=== PATIENT | female | born 1950 | race Caucasian/White ===

== ENCOUNTER 2017-07-20 19:43 | Inpatient (IN) | payer OTHER ==
[~2017-07-20] VITALS: Ht 157.5 cm; Wt 70.0 kg
[~2017-07-20 19:43] MED LIST: ACET-1138 PO; AMIT10TA6 PO; ASPI81CH2 PO; CEPH500C2 PO; CLB200 PO; CLC100 PO; DIAZ5TAB3 PO; FLUO10CA48 PO; LOSA100T2 PO; METO-478 PO; MULT-506 PO; NXM/40 PO; OXYC-738 PO; RXC5 PO; SENN-65 PO; SIMV10TA2 PO; SUMA50TA15 PO; TIZA1CAP PO
[2017-07-20] MEDS ORDERED: DiphenhydrAMINE HCL 50 MG/ML VIAL IV STA (20:18)
[2017-07-20] MEDS ORDERED: SODIUM CHLORIDE 0.9% 1000ML 2,000 ML IV STA (20:18)
[2017-07-20] MEDS ORDERED: METOCLOPRAMIDE HCL INJ 5 MG/ML 2 ML VIAL IV STA (20:18)
[2017-07-20] MEDS ORDERED: OPTIRAY 320 IV PRN (20:30)
--- NOTE | 2017-07-20 20:52 | EMERGENCY ROOM VISIT NOTE ---
History Report prepared by Arnaldo: Juan Miller Under the Supervision of: Dr. Madhav Castro M.D. First contact with patient: 19:53 Chief Complaint: SYNCOPE Stated Complaint: FAINTED AND LOST SPEECH, DOMINIQUE, VISION PROBLEMS History of Present Illness The patient is a 67 year old female who presents to the Emergency Room with complaints of an episode of syncope that occurred this morning 13 hours ago. At that time, she was getting dressed when everything suddenly went "black and float-y" and she collapsed straight down "like an accordion." She woke up as her arrived next to her. Per the patient's , he came into the bedroom when he heard her collapse and said she had jumbled speech. She was trying to say "I think I'm having a stroke." Afterward when her speech improved , she immediately got a migraine that felt like her typical migraines with aura. She took an Imitrex which usually helps, but notes that it did not help. Several hours later, she took another Imitrex and also took a Diazepam. She took a nap and when she woke up her migraine was gone but she still had superior head pain with her vision aura. Usually her aura goes away when she takes Imitrex, but it did not. Her head pain worsens with coughing and notes that she is getting over bronchitis. She is currently nauseated but denies any chest pain, shortness of breath, vomiting, or any other abnormal symptoms. Source of History: patient Onset: 13 hours ago Position: other (Global) Symptom Intensity: 1 episode Quality: other (Syncope) Timing: resolved Associated Symptoms: + headache, No chest pain, No SOB, No vomiting Note: She is having a migraine vision aura. Review of Systems See HPI for pertinent positives and negatives. A total of ten systems were reviewed and were otherwise negative. Past Medical & Surgical Medical Problems: (1) Dyslipidemia (2) Empyema of lung (3) Gastrointestinal hemorrhage (4) GERD (gastroesophageal reflux disease) (5) Hemarthrosis, unspecified knee (6) History of basal cell carcinoma (7) History of squamous cell carcinoma of skin (8) Hypertension (9) Intractable neuropathic pain of knee (10) Knee pain, bilateral (11) Migraine (12) Pulmonary embolism (13) Syncope (14) Thyroid nodule Surgical Problems: (1) Status post SAMREEN-BSO (2) Total knee replacement status Family History Omitted secondary to the patient's age. Social History Smoking Status: Never Smoker Marital Status: Housing Status: lives with family Occupation Status: unemployed Current/Historical Medications Scheduled Amitriptyline Hcl (Elavil), 10 MG PO HS Carbidopa/Levodopa (Sinemet 25MG/100MG), 0.5 TAB PO QPM Dexlansoprazole (Dexilant), 60 MG PO DAILY Diazepam (Valium), 10 MG PO QPM Fluoxetine (Prozac), 10 MG PO QAM Hydrochlorothiazide (Hydrochlorothiazide), 12.5 MG PO 3XWK Losartan Potassium (Cozaar), 100 MG PO DAILY Metoprolol Succinate (Toprol Xl), 25 MG PO QPM Ranitidine HCl (Ranitidine 75), 75 MG PO HS Simvastatin (Zocor), 10 MG PO QPM Tizanidine Hcl (Tizanidine Hcl), 2 MG PO HS Scheduled PRN Acetaminophen (Tylenol), 1,000 MG PO Q8H PRN for Pain Diazepam (Valium), 5 MG PO Q6 PRN for Headache Hydrocodone/Acetaminophen 5MG/325MG ([place] 5MG/325MG), 1 TABLET PO TID PRN for Pain Sumatriptan Succinate (Imitrex), 50 MG PO UD PRN for Headache Zolmitriptan (Zomig), 2.5 MG INH UD PRN for Migraine Allergies Coded Allergies: Adhesives (Verified Allergy, Unknown, REDNESS [id number] TAPE OK, ) Valproic Acid (Verified Adverse Reaction, Intermediate, feels "out of it" , 07/20/17) Physical Exam Vital Signs Date Time Temp Pulse Resp B/P (MAP) Pulse Ox O2 Delivery O2 Flow Rate FiO2 07/21/17 01:03 74 20 140/82 98 Room Air 07/21/17 00:22 74 20 154/80 99 Room Air 07/20/17 23:33 Room Air 07/20/17 22:49 63 18 125/61 97 Room Air 07/20/17 21:58 98 Room Air 07/20/17 21:58 65 18 182/77 98 Room Air 07/20/17 21:23 66 07/20/17 19:49 36.7 71 18 136/87 99 Room Air Physical Exam GENERAL: Awake, alert, anxious-appearing, in no distress HENT: Normocephalic, atraumatic. Oropharynx reveals dry mucous membranes. EYES: Normal conjunctiva. Sclera non-icteric. NECK: Supple. No nuchal rigidity. FROM. No JVD. RESPIRATORY: Clear to auscultation. CARDIAC: Regular rate, normal rhythm. Extremities warm and well perfused. Pulses equal. ABDOMEN: Soft, non-distended. No tenderness to palpation. No rebound or guarding. No masses. RECTAL: Deferred. MUSCULOSKELETAL: Chest examination reveals no tenderness. The back is symmetrical on inspection without obvious abnormality. There is no CVA tenderness to palpation. No joint edema. LOWER EXTREMITIES: Calves are equal size bilaterally and non-tender. No edema. No discoloration. NEURO: Normal sensorium. No sensory or motor deficits noted. SKIN: No rash or jaundice noted. Medical Decision & Procedures ER Provider Diagnostic Interpretation: Radiology results as stated below per my review and radiologist interpretation: ANGIOGRAPHY HEAD COMBO, NECK ANGIO WITH CONTRAST CLINICAL HISTORY: 67 years-old Female presenting with headache, aphasia, now resolved. TECHNIQUE: Multidetector CT angiography of the head was performed before and after the administration of intravenous contrast. Additionally, multidetector CT angiography of the neck was performed after the administration of intravenous contrast. 3-D volumetric and/or maximum intensity projection (MIP) images were subsequently reconstructed for review. IV contrast: 114 mL of Optiray 320. A dose lowering technique was used consistent with the principles of ALARA (as low as reasonably achievable). Stenosis measurements were based on NASCET-like criteria. COMPARISON: CT head from 07/22/2014. CT DOSE (mGy.cm): The estimated cumulative dose is 929.87 mGy.cm. FINDINGS: [employer] topogram: Unremarkable. NONCONTRAST CT HEAD: Ventricles and sulci normal in size. Brain parenchyma normal in appearance with preserved taylor-white differentiation. No mass effect or midline shift. Scans hyperdensity laterally in the right posterior fossa. No acute territorial infarct. No extra-axial fluid collection. Paranasal sinuses and mastoid air cells clear. Calvarium intact. CTA HEAD: Intracranial portions of the internal carotid arteries, anterior and middle cerebral arteries, and anterior commuting artery patent. Codominant vertebral arteries and basilar artery patent. Posterior inferior cerebellar, superior cerebellar, and posterior cerebral arteries patent. Anterior inferior cerebellar arteries poorly visualized. Bilateral posterior communicating arteries patent. The T1 segment of the left posterior cerebral artery is hypoplastic. No evidence of aneurysm, focal vessel occlusion, or significant stenosis. CTA NECK: The aortic arch is incompletely visualized. Bilateral common carotid arteries patent. Atherosclerotic plaque at the right carotid bulb results in narrowing of the origin of the right internal carotid artery with a minimum diameter of 2.8 mm in comparison to normal distal diameter of 5.5 mm (approximately 50% stenosis). The remainder of the right internal carotid artery is widely patent. Left internal carotid artery also patent despite the presence of mild atherosclerotic plaque at the left carotid bulb. Codominant vertebral arteries with patent origins and courses. No evidence of dissection or focal vessel occlusion. Few subcentimeter hypodensities in the thyroid gland. Lung apices clear. Mild degenerative changes of the cervical spine. IMPRESSION: 1. No acute intracranial abnormality. Hyperdensity in the right posterior fossa is felt to be artifactual related to volume averaging with the skull base, the transiting dural venous sinus, and/or adjacent calcified choroid or vessels. This is not convincing for hemorrhage. If there is clinical concern noncontrast MR brain could be obtained. 2. No evidence of aneurysm, focal vessel occlusion, or significant stenosis. 3. 50% stenosis of the origin of the right internal carotid artery. No evidence of dissection or focal vessel occlusion. Electronically signed by: Aryan Melara M.D. 07/20/2017 10:04 PM Dictated Date/Time: 07/20/2017 9:53 PM CHEST ONE VIEW PORTABLE CLINICAL HISTORY: 67 years-old Female presenting with CHEST PAIN. TECHNIQUE: Portable upright AP view of the chest was obtained. COMPARISON: 07/20/2017. FINDINGS: Cardiomediastinal silhouette normal. Lungs and pleural spaces clear. Degenerative changes of the thoracic spine. Upper abdomen normal. IMPRESSION: 1. No acute cardiopulmonary disease. Electronically signed by: Aryan Melara M.D. 07/20/2017 9:08 PM Dictated Date/Time: 07/20/2017 9:07 PM ANGIOGRAPHY HEAD COMBO, NECK ANGIO WITH CONTRAST CLINICAL HISTORY: 67 years-old Female presenting with headache, aphasia, now resolved. TECHNIQUE: Multidetector CT angiography of the head was performed before and after the administration of intravenous contrast. Additionally, multidetector CT angiography of the neck was performed after the administration of intravenous contrast. 3-D volumetric and/or maximum intensity projection (MIP) images were subsequently reconstructed for review. IV contrast: 114 mL of Optiray 320. A dose lowering technique was used consistent with the principles of ALARA (as low as reasonably achievable). Stenosis measurements were based on NASCET-like criteria. COMPARISON: CT head from 07/22/2014. CT DOSE (mGy.cm): The estimated cumulative dose is 929.87 mGy.cm. FINDINGS: [employer] topogram: Unremarkable. NONCONTRAST CT HEAD: Ventricles and sulci normal in size. Brain parenchyma normal in appearance with preserved taylor-white differentiation. No mass effect or midline shift. Scans hyperdensity laterally in the right posterior fossa. No acute territorial infarct. No extra-axial fluid collection. Paranasal sinuses and mastoid air cells clear. Calvarium intact. CTA HEAD: Intracranial portions of the internal carotid arteries, anterior and middle cerebral arteries, and anterior commuting artery patent. Codominant vertebral arteries and basilar artery patent. Posterior inferior cerebellar, superior cerebellar, and posterior cerebral arteries patent. Anterior inferior cerebellar arteries poorly visualized. Bilateral posterior communicating arteries patent. The T1 segment of the left posterior cerebral artery is hypoplastic. No evidence of aneurysm, focal vessel occlusion, or significant stenosis. CTA NECK: The aortic arch is incompletely visualized. Bilateral common carotid arteries patent. Atherosclerotic plaque at the right carotid bulb results in narrowing of the origin of the right internal carotid artery with a minimum diameter of 2.8 mm in comparison to normal distal diameter of 5.5 mm (approximately 50% stenosis). The remainder of the right internal carotid artery is widely patent. Left internal carotid artery also patent despite the presence of mild atherosclerotic plaque at the left carotid bulb. Codominant vertebral arteries with patent origins and courses. No evidence of dissection or focal vessel occlusion. Few subcentimeter hypodensities in the thyroid gland. Lung apices clear. Mild degenerative changes of the cervical spine. IMPRESSION: 1. No acute intracranial abnormality. Hyperdensity in the right posterior fossa is felt to be artifactual related to volume averaging with the skull base, the transiting dural venous sinus, and/or adjacent calcified choroid or vessels. This is not convincing for hemorrhage. If there is clinical concern noncontrast MR brain could be obtained. 2. No evidence of aneurysm, focal vessel occlusion, or significant stenosis. 3. 50% stenosis of the origin of the right internal carotid artery. No evidence of dissection or focal vessel occlusion. Electronically signed by: Aryan Melara M.D. 07/20/2017 10:04 PM Dictated Date/Time: 07/20/2017 9:53 PM Laboratory Results 07/20/17 20:53 Red Blood Count 4.55, Mean Corpuscular Volume 87.3, Mean Corpuscular Hemoglobin 29.2, Mean Corpuscular Hemoglobin Concent 33.5, Mean Platelet Volume 10.7, Neutrophils (%) (Auto) 50.5, Lymphocytes (%) (Auto) 36.9, Monocytes (%) (Auto) 9.8, Eosinophils (%) (Auto) 2.0, Basophils (%) (Auto) 0.6, Neutrophils # (Auto) 2.57, Lymphocytes # (Auto) 1.88, Monocytes # (Auto) 0.50, Eosinophils # (Auto) 0.10, Basophils # (Auto) 0.03 07/20/17 20:53 Test 07/20/17 20:53 07/20/17 21:51 07/21/17 01:07 White Blood Count 5.09 K/uL (4.8-10.8) Red Blood Count 4.55 M/uL (4.2-5.4) Hemoglobin 13.3 g/dL (12.0-16.0) Hematocrit 39.7 % (37-47) Mean Corpuscular Volume 87.3 fL (80-100) Mean Corpuscular Hemoglobin 29.2 pg (25-34) Mean Corpuscular Hemoglobin Concent 33.5 g/dl (32-36) Platelet Count 206 K/uL (130-400) Mean Platelet Volume 10.7 fL (7.4-10.4) Neutrophils (%) (Auto) 50.5 % Lymphocytes (%) (Auto) 36.9 % Monocytes (%) (Auto) 9.8 % Eosinophils (%) (Auto) 2.0 % Basophils (%) (Auto) 0.6 % Neutrophils # (Auto) 2.57 K/uL (1.4-6.5) Lymphocytes # (Auto) 1.88 K/uL (1.2-3.4) Monocytes # (Auto) 0.50 K/uL (0.11-0.59) Eosinophils # (Auto) 0.10 K/uL (0-0.5) Basophils # (Auto) 0.03 K/uL (0-0.2) RDW Standard Deviation 44.6 fL (36.4-46.3) RDW Coefficient of Variation 14.1 % (11.5-14.5) Immature Granulocyte % (Auto) 0.2 % Immature Granulocyte # (Auto) 0.01 K/uL (0.00-0.02) Anion Gap 5.0 mmol/L (3-11) Est Creatinine Clear Calc Drug Dose 55.7 ml/min Estimated GFR () 77.7 Estimated GFR (Non- 67.0 BUN/Creatinine Ratio 18.1 (10-20) Calcium Level 9.4 mg/dl (8.5-10.1) Total Bilirubin 0.3 mg/dl (0.2-1) Direct Bilirubin < 0.1 mg/dl (0-0.2) Aspartate Amino Transf (AST/SGOT) 16 U/L (15-37) Alanine Aminotransferase (ALT/SGPT) 21 U/L (12-78) Alkaline Phosphatase 82 U/L (45-117) Troponin I < 0.015 ng/ml (0-0.045) Total Protein 7.3 gm/dl (6.4-8.2) Albumin 3.9 gm/dl (3.4-5.0) Lipase 185 U/L (73-393) Urine Color YELLOW Urine Appearance CLEAR (CLEAR) Urine pH 7.5 (4.5-7.5) Urine Specific [place] 1.024 (1.000-1.030) Urine Protein NEG (NEG) Urine Glucose (UA) NEG (NEG) Urine Ketones NEG (NEG) Urine Occult Blood NEG (NEG) Urine Nitrite NEG (NEG) Urine Bilirubin NEG (NEG) Urine Urobilinogen NEG (NEG) Urine Leukocyte Esterase SMALL (NEG) Urine WBC (Auto) 1-5 /hpf (0-5) Urine RBC (Auto) 0-4 /hpf (0-4) Urine Hyaline Casts (Auto) 0 /lpf (0-5) Urine Epithelial Cells (Auto) 20-30 /lpf (0-5) Urine Bacteria (Auto) NEG (NEG) Bedside Glucose 123 mg/dl (70-90) Laboratory results reviewed by me Medications Administered Medications (Trade) Dose Ordered Sig/Jimmy Route Start Time Stop Time Status Last Admin Dose Admin Sodium Chloride 2,000 ml @ 999 mls/hr Q2H1M STAT IV 07/20/17 20:18 07/20/17 22:18 DC 07/20/17 21:01 999 MLS/HR Metoclopramide HCl (Reglan Inj) 10 mg NOW STAT IV 07/20/17 20:18 07/20/17 20:23 DC 07/20/17 21:01 10 MG Diphenhydramine HCl (Benadryl Inj) 25 mg NOW STAT IV 07/20/17 20:18 12 20:23 DC 07/20/17 21:01 25 MG Dexamethasone Sodium Phosphate (Dexamethasone Inj Pf) 10 mg NOW ONCE IV 07/20/17 22:45 07/20/17 22:46 DC 07/20/17 22:42 10 MG Dextrose (Dextrose 50% 50ML Syringe) 50 ml NOW STAT IV 07/20/17 22:37 07/20/17 22:39 DC 07/20/17 22:42 50 ML ECG Indication: syncope Rate (beats per minute): 66 Rhythm: normal sinus Findings: no acute ischemic change, other (normal axis) ED Course 1952: The patient was evaluated in room C1. A complete history and physical exam was performed. 2236: She feels as if her sugars are low. Her BSG per nursing staff was 63. She will be given something to increase her sugars. 0: Upon reexamination, the patient was resting. I discussed the test results and treatment plan with her. I spoke with Dr. Noguera of the [facility] Hospitalist service. The patient will be evaluated for further management. Medical Decision I reviewed the patient's past medical history, medications, and the nursing notes as described above. Differential diagnosis includes but is not limited to: Migraine/Complex migraine , CVA/TIA, ICH, dehydration, electrolyte abnormalities, pna, uti. The patient is a 67-year-old woman with a past medical history of migraine headaches who presents to emergency department after having a migraine headache earlier today that was also associated with syncopal episode where she feels like she blacked out and subsequently reports that she was unable to speak for several minutes per hpi. Arrival the patient is anxious appearing but in no acute distress, afebrile, hypertensive but with stable vital signs. She is neurologically intact including normal cerebellar function with [id number], alternating palms. CTA of the head and neck was done and was negative for any severe large vessel occlusion or infarct. Patient feeling improved after migraine cocktail although still with some residual headache but resolution of her visual symptoms. The patient's prolonged episode of aphasia earlier today it is reasonable to the patient for a full stroke rule out. MRI has been ordered. Case d/w Dr. Noguera, [facility] hospitalist, who will admit the patient for further management. Medication Reconcilliation Current Medication List: was personally reviewed by me Blood Pressure Screening Patient's blood pressure: Elevated blood pressure Referred to the hospitalist. Consults Time Called: [phone] Consulting Physician: Dr. Noguera - [facility] Hospitalist Returned Call: [phone] I discussed the patient with him - he will evaluate the patient for further treatment. Impression Primary Impression: Aphasia Additional Impression: Migraine headache Scribe Attestation The scribe's documentation has been prepared under my direction and personally reviewed by me in its entirety. I confirm that the note above accurately reflects all work, treatment, procedures, and medical decision making performed by me. Departure Information Dispostion Being Evaluated By Hospitalist Referrals Beth Wang M.D. (PCP) Patient Instructions My [facility] Problem Qualifiers
--- NOTE | 2017-07-20 21:09 | DIAGNOSTIC IMAGING REPORT ---
CHEST ONE VIEW PORTABLE CLINICAL HISTORY: 67 years-old Female presenting with CHEST PAIN. TECHNIQUE: Portable upright AP view of the chest was obtained. COMPARISON: 07/20/2017. FINDINGS: Cardiomediastinal silhouette normal. Lungs and pleural spaces clear. Degenerative changes of the thoracic spine. Upper abdomen normal. IMPRESSION: 1. No acute cardiopulmonary disease. Electronically signed by: Aryan Melara M.D. 07/20/2017 9:08 PM Dictated Date/Time: 07/20/2017 9:07 PM
[2017-07-20 21:11] LABS: BASO % 0.6 %; BASO ABS # 0.03 K/uL (0-0.2); HEMATOCRIT 39.7 % (37-47); HEMOGLOBIN 13.3 g/dL (12.0-16.0); IG# 0.01 K/uL (0.00-0.02); LYMPH % 36.9 %; LYMPH ABS # 1.88 K/uL (1.2-3.4); MEAN CELL VOLUME 87.3 fL (80-100); MEAN CORPUSCULAR HEMOGLOBIN 29.2 pg (25-34); MEAN CORPUSCULAR HGB CONC 33.5 g/dl (32-36); MEAN PLATELET VOLUME 10.7 fL (7.4-10.4); MONO % 9.8 %; NEUT % 50.5 %; NEUT ABS # 2.57 K/uL (1.4-6.5); PLATELET COUNT 206 K/uL (130-400); RED CELL DISTRIBUTION WIDTH CV 14.1 % (11.5-14.5); RED CELL DISTRIBUTION WIDTH SD 44.6 fL (36.4-46.3); WHITE BLOOD COUNT 5.09 K/uL (4.8-10.8)
[2017-07-20 21:28] LABS: ALBUMIN 3.9 gm/dl (3.4-5.0); ALT/SGPT 21 U/L (12-78); BLOOD UREA NITROGEN 16 mg/dl (7-18); CALCIUM 9.4 mg/dl (8.5-10.1); CARBON DIOXIDE 30 mmol/L (21-32); CREATININE 0.88 mg/dl (0.60-1.20); GLUCOSE 123 mg/dl (70-99); LIPASE 185 U/L (73-393); POTASSIUM 3.7 mmol/L (3.5-5.1); SODIUM 138 mmol/L (136-145)
[2017-07-20 21:33] LABS: ALKALINE PHOSPHATASE 82 U/L (45-117); AST/SGOT 16 U/L (15-37); TOTAL PROTEIN 7.3 gm/dl (6.4-8.2)
--- NOTE | 2017-07-20 22:06 | DIAGNOSTIC IMAGING REPORT ---
ANGIOGRAPHY HEAD COMBO, NECK ANGIO WITH CONTRAST CLINICAL HISTORY: 67 years-old Female presenting with headache, aphasia, now resolved. TECHNIQUE: Multidetector CT angiography of the head was performed before and after the administration of intravenous contrast. Additionally, multidetector CT angiography of the neck was performed after the administration of intravenous contrast. 3-D volumetric and/or maximum intensity projection (MIP) images were subsequently reconstructed for review. IV contrast: 114 mL of Optiray 320. A dose lowering technique was used consistent with the principles of ALARA (as low as reasonably achievable). Stenosis measurements were based on NASCET-like criteria. COMPARISON: CT head from 07/22/2014. CT DOSE (mGy.cm): The estimated cumulative dose is 929.87 mGy.cm. FINDINGS: [employer] topogram: Unremarkable. NONCONTRAST CT HEAD: Ventricles and sulci normal in size. Brain parenchyma normal in appearance with preserved taylor-white differentiation. No mass effect or midline shift. Scans hyperdensity laterally in the right posterior fossa. No acute territorial infarct. No extra-axial fluid collection. Paranasal sinuses and mastoid air cells clear. Calvarium intact. CTA HEAD: Intracranial portions of the internal carotid arteries, anterior and middle cerebral arteries, and anterior commuting artery patent. Codominant vertebral arteries and basilar artery patent. Posterior inferior cerebellar, superior cerebellar, and posterior cerebral arteries patent. Anterior inferior cerebellar arteries poorly visualized. Bilateral posterior communicating arteries patent. The T1 segment of the left posterior cerebral artery is hypoplastic. No evidence of aneurysm, focal vessel occlusion, or significant stenosis. CTA NECK: The aortic arch is incompletely visualized. Bilateral common carotid arteries patent. Atherosclerotic plaque at the right carotid bulb results in narrowing of the origin of the right internal carotid artery with a minimum diameter of 2.8 mm in comparison to normal distal diameter of 5.5 mm (approximately 50% stenosis). The remainder of the right internal carotid artery is widely patent. Left internal carotid artery also patent despite the presence of mild atherosclerotic plaque at the left carotid bulb. Codominant vertebral arteries with patent origins and courses. No evidence of dissection or focal vessel occlusion. Few subcentimeter hypodensities in the thyroid gland. Lung apices clear. Mild degenerative changes of the cervical spine. IMPRESSION: 1. No acute intracranial abnormality. Hyperdensity in the right posterior fossa is felt to be artifactual related to volume averaging with the skull base, the transiting dural venous sinus, and/or adjacent calcified choroid or vessels. This is not convincing for hemorrhage. If there is clinical concern noncontrast MR brain could be obtained. 2. No evidence of aneurysm, focal vessel occlusion, or significant stenosis. 3. 50% stenosis of the origin of the right internal carotid artery. No evidence of dissection or focal vessel occlusion. Electronically signed by: Aryan Melara M.D. 07/20/2017 10:04 PM Dictated Date/Time: 07/20/2017 9:53 PM
[2017-07-20] MEDS ORDERED: DEXTROSE 50% 50 ML SYR IV STA (22:37)
[2017-07-20] MEDS ORDERED: CHOL1TAB18 PO (22:39)
[2017-07-20] MEDS ORDERED: CARB25TA12 PO (22:41)
[2017-07-20] MEDS ORDERED: HYDR12.55 PO (22:44)
[2017-07-20] MEDS ORDERED: DEXAMETHASONE **PF** INJ 10 MG/ML VIAL IV ONE (22:45)
[2017-07-20] MEDS ORDERED: LOSA1TAB38 PO (22:48)
[2017-07-20] MEDS ORDERED: DIAZ10TA PO (22:50)
[2017-07-20] MEDS ORDERED: HYDR-5688 PO (22:52)
[2017-07-20] MEDS ORDERED: DEXL60CA4 PO (22:53)
[2017-07-20] MEDS ORDERED: ZOLM1TAB3 PO (22:57)
[2017-07-20] MEDS ORDERED: [UNRECOGNIZED DRUG - CODE] INH (22:57)
[2017-07-20] MEDS ORDERED: RANI150T3 PO (22:59)
[2017-07-20] MEDS ORDERED: ACET-1256 PO (23:00)
[2017-07-20 23:33] VITALS: Ht 157.5 cm; Wt 70.0 kg
[2017-07-21] VITALS (11 sets, daily range): BP systolic 111–152; BP diastolic 62–75; PULSE 73–93; TEMP 36.4–36.7; O2SAT 94–99
[2017-07-21] MEDS ORDERED: ACETAMINOPHEN 325 MG TAB PO PRN (00:30)
[2017-07-21] MEDS ORDERED: RANI1TAB75 PO (00:46)
--- NOTE | 2017-07-21 01:33 | History and Physical ---
History & Physical Date & Time of Service: Jul 21, 2017 at 01:32 . Chief Complaint: passed out, difficulty speaking, headache . Primary Care Physician: Beth Wang M.D. History of Present Illness 64-year-old female followed by Dr. Wang for Internal Medicine and Dr. Bonilla for Neurology. History of hypertension, dyslipidemia, pulmonary embolism, migraine headaches, and other problems noted below. Experienced an episode of syncope this morning after arising from bed. She describes blacking out and a floating sensation as she fell to the floor. No associated chest pain, palpitations, dyspnea. No injuries from the fall. Apparently she lost consciousness for a brief period of time. reported that she was having difficulties with her speech- "gibberish." After the fall she developed right sided parietal / occipital headache similar to her usual migraine. Headache associated with visual aura. She took a dose of Imitrex and rested, but the headache persisted. Took a second dose of Imitrex and rested. When she awoke this afternoon, headache was better but she had a throbbing sensation in her head and the visual aura seemed worse than usual. Speech difficulties had resolved. No focal weakness of upper or lower extremities. No difficulty with ambulating. . Past Medical/Surgical History Chronic and Resolved Medical Problems: (1) Dyslipidemia Status: Chronic (2) GERD (gastroesophageal reflux disease) Status: Chronic (3) History of basal cell carcinoma Permanent Comment: right shoulder 01/06/10 Dr. Harsh Hernandez Status: Chronic (4) History of gastrointestinal bleeding Permanent Comment: UGI bleed secondary to ASA or NSAID's Status: Chronic (5) History of pulmonary embolism Permanent Comment: 2013 Status: Chronic (6) History of squamous cell carcinoma of skin Permanent Comment: left anterior leg 04/29/11 Dr. Annie Hernandez Status: Chronic (7) Hypertension Status: Chronic (8) Migraine headache Status: Chronic (9) Thyroid nodule Permanent Comment: incidental finding on CT chest 07/22/14 Status: Chronic Surgical Problems: (1) Status post SAMREEN-BSO Permanent Comment: fibroids Status: Chronic (2) Total knee replacement status Status: Chronic . Social History Smoking Status: Never Smoker Alcohol Use: none Marital Status: Housing status: lives with family Occupational Status: unemployed Immunizations History of Influenza Vaccine: Yes History of Pneumococcal: No Allergies Coded Allergies: Adhesives (Verified Allergy, Unknown, REDNESS [id number] TAPE OK, ) Valproic Acid (Verified Adverse Reaction, Intermediate, feels "out of it" , 07/20/17) Home Medications Scheduled Amitriptyline Hcl (Elavil), 10 MG PO HS Carbidopa/Levodopa (Sinemet 25MG/100MG), 0.5 TAB PO QPM Dexlansoprazole (Dexilant), 60 MG PO DAILY Diazepam (Valium), 10 MG PO QPM Fluoxetine (Prozac), 10 MG PO QAM Hydrochlorothiazide (Hydrochlorothiazide), 12.5 MG PO 3XWK Losartan Potassium (Cozaar), 100 MG PO DAILY Metoprolol Succinate (Toprol Xl), 25 MG PO QPM Ranitidine HCl (Ranitidine 75), 75 MG PO HS Simvastatin (Zocor), 10 MG PO QPM Tizanidine Hcl (Tizanidine Hcl), 2 MG PO HS Scheduled PRN Acetaminophen (Tylenol), 1,000 MG PO Q8H PRN for Pain Diazepam (Valium), 5 MG PO Q6 PRN for Headache Hydrocodone/Acetaminophen 5MG/325MG (Ferguson 5MG/325MG), 1 TABLET PO TID PRN for Pain Sumatriptan Succinate (Imitrex), 50 MG PO UD PRN for Headache Zolmitriptan (Zomig), 2.5 MG INH UD PRN for Migraine Review of Systems Constitutional: No fever, No weight loss Eyes: + problem reported (as noted in HPI) ENT: + nasal symptoms, No sore throat Respiratory: + cough (bronchitis 2 wks ago, resolved), No shortness of breath Cardiovascular: No chest pain, No edema, No palpitations Abdomen: No nausea, No vomiting, No diarrhea, No GI bleeding Musculoskeletal: + joint pain (knee pain) Genitourinary - Female: No dysuria, No hematuria Neurologic: + problem reported (as noted in HPI) Endocrine: No excessive thirst Hematologic / Lymphatic: No abnormal bleeding/bruising, No swollen lymph nodes Integumentary: + problem reported (recent excision of skin cancer LLE), No rash Physical Exam Vital Signs Date Time Temp Pulse Resp B/P (MAP) Pulse Ox O2 Delivery O2 Flow Rate FiO2 07/21/17 01:03 74 20 140/82 98 Room Air 07/21/17 00:22 74 20 154/80 99 Room Air 07/20/17 23:33 Room Air 07/20/17 22:49 63 18 125/61 97 Room Air 07/20/17 21:58 98 Room Air 07/20/17 21:58 65 18 182/77 98 Room Air 07/20/17 21:23 66 07/20/17 19:49 36.7 71 18 136/87 99 Room Air General Appearance: WD/WN, no apparent distress Head: normocephalic, atraumatic Eyes: normal inspection, PERRL, EOMI, sclerae normal, + pertinent finding ( conjunctivae clear) ENT: hearing grossly normal, TMs normal, pharynx normal Neck: supple, no adenopathy, thyroid normal, no carotid bruits, trachea midline Respiratory/Chest: lungs clear, no respiratory distress, no accessory muscle use Cardiovascular: regular rate, rhythm, no edema, no gallop, no JVD, no murmur, normal peripheral pulses Abdomen/GI: normal bowel sounds, non tender, soft, no organomegaly, no pulsatile mass Extremities/Musculoskelatal: normal inspection, no calf tenderness, normal capillary refill, no pedal edema Neurologic/Psych: head batcher II-XII nml as tested (PERRL, EOMI, no facial palsy, no dysarthria or aphasia), no motor/sensory deficits (motor strength upper and lower extremities intact), alert, normal mood/affect, oriented x 3, + pertinent finding (patellar DTR's 1/2 bilat; plantar reflexes downgoing; finger to nose intact bilat) Skin: normal color, warm/dry, no rash, + pertinent finding (biopsy site LLE without erythema or drainage) Diagnostics Laboratory Results Results Past 24 Hours Test 07/20/17 20:53 07/20/17 21:51 07/20/17 23:13 07/21/17 01:07 Range/Units White Blood Count 5.09 4.8-10.8 K/uL Red Blood Count 4.55 4.2-5.4 M/uL Hemoglobin 13.3 12.0-16.0 g/dL Hematocrit 39.7 37-47 % Mean Corpuscular Volume 87.3 80-100 fL Mean Corpuscular Hemoglobin 29.2 25-34 pg Mean Corpuscular Hemoglobin Concent 33.5 32-36 g/dl Platelet Count 206 130-400 K/uL Mean Platelet Volume 10.7 7.4-10.4 fL Neutrophils (%) (Auto) 50.5 % Lymphocytes (%) (Auto) 36.9 % Monocytes (%) (Auto) 9.8 % Eosinophils (%) (Auto) 2.0 % Basophils (%) (Auto) 0.6 % Neutrophils # (Auto) 2.57 1.4-6.5 K/uL Lymphocytes # (Auto) 1.88 1.2-3.4 K/uL Monocytes # (Auto) 0.50 0.11-0.59 K/uL Eosinophils # (Auto) 0.10 0-0.5 K/uL Basophils # (Auto) 0.03 0-0.2 K/uL RDW Standard Deviation 44.6 36.4-46.3 fL RDW Coefficient of Variation 14.1 11.5-14.5 % Immature Granulocyte % (Auto) 0.2 % Immature Granulocyte # (Auto) 0.01 0.00-0.02 K/uL Sodium Level 138 136-145 mmol/L Potassium Level 3.7 3.5-5.1 mmol/L Chloride Level 103 98-107 mmol/L Carbon Dioxide Level 30 21-32 mmol/L Anion Gap 5.0 3-11 mmol/L Blood Urea Nitrogen 16 7-18 mg/dl Creatinine 0.88 0.60-1.20 mg/dl Est Creatinine Clear Calc Drug Dose 55.7 ml/min Estimated GFR () 77.7 Estimated GFR (Non- 67.0 BUN/Creatinine Ratio 18.1 10-20 Random Glucose 123 70-99 mg/dl Calcium Level 9.4 8.5-10.1 mg/dl Total Bilirubin 0.3 0.2-1 mg/dl Direct Bilirubin < 0.1 0-0.2 mg/dl Aspartate Amino Transf (AST/SGOT) 16 15-37 U/L Alanine Aminotransferase (ALT/SGPT) 21 12-78 U/L Alkaline Phosphatase 82 45-117 U/L Troponin I < 0.015 0-0.045 ng/ml Total Protein 7.3 6.4-8.2 gm/dl Albumin 3.9 3.4-5.0 gm/dl Lipase 185 73-393 U/L Urine Color YELLOW Urine Appearance CLEAR CLEAR Urine pH 7.5 4.5-7.5 Urine Specific [place] 1.024 1.000-1.030 Urine Protein NEG NEG Urine Glucose (UA) NEG NEG Urine Ketones NEG NEG Urine Occult Blood NEG NEG Urine Nitrite NEG NEG Urine Bilirubin NEG NEG Urine Urobilinogen NEG NEG Urine Leukocyte Esterase SMALL NEG Urine WBC (Auto) 1-5 0-5 /hpf Urine RBC (Auto) 0-4 0-4 /hpf Urine Hyaline Casts (Auto) 0 0-5 /lpf Urine Epithelial Cells (Auto) 20-30 0-5 /lpf Urine Bacteria (Auto) NEG NEG Bedside Glucose 156 123 70-90 mg/dl Diagnostic Radiology CHEST ONE VIEW PORTABLE FINDINGS: Cardiomediastinal silhouette normal. Lungs and pleural spaces clear. Degenerative changes of the thoracic spine. Upper abdomen normal. IMPRESSION: 1. No acute cardiopulmonary disease. Electronically signed by: Aryan Melara M.D. 07/20/2017 9:08 PM Dictated Date/Time: 07/20/2017 9:07 PM ANGIOGRAPHY HEAD COMBO, NECK ANGIO WITH CONTRAST FINDINGS: Field Support Technician topogram: Unremarkable. NONCONTRAST CT HEAD: Ventricles and sulci normal in size. Brain parenchyma normal in appearance with preserved taylor-white differentiation. No mass effect or midline shift. Scans hyperdensity laterally in the right posterior fossa. No acute territorial infarct. No extra-axial fluid collection. Paranasal sinuses and mastoid air cells clear. Calvarium intact. CTA HEAD: Intracranial portions of the internal carotid arteries, anterior and middle cerebral arteries, and anterior commuting artery patent. Codominant vertebral arteries and basilar artery patent. Posterior inferior cerebellar, superior cerebellar, and posterior cerebral arteries patent. Anterior inferior cerebellar arteries poorly visualized. Bilateral posterior communicating arteries patent. The T1 segment of the left posterior cerebral artery is hypoplastic. No evidence of aneurysm, focal vessel occlusion, or significant stenosis. CTA NECK: The aortic arch is incompletely visualized. Bilateral common carotid arteries patent. Atherosclerotic plaque at the right carotid bulb results in narrowing of the origin of the right internal carotid artery with a minimum diameter of 2.8 mm in comparison to normal distal diameter of 5.5 mm (approximately 50% stenosis). The remainder of the right internal carotid artery is widely patent. Left internal carotid artery also patent despite the presence of mild atherosclerotic plaque at the left carotid bulb. Codominant vertebral arteries with patent origins and courses. No evidence of dissection or focal vessel occlusion. Few subcentimeter hypodensities in the thyroid gland. Lung apices clear. Mild degenerative changes of the cervical spine. IMPRESSION: 1. No acute intracranial abnormality. Hyperdensity in the right posterior fossa is felt to be artifactual related to volume averaging with the skull base, the transiting dural venous sinus, and/or adjacent calcified choroid or vessels. This is not convincing for hemorrhage. If there is clinical concern noncontrast MR brain could be obtained. 2. No evidence of aneurysm, focal vessel occlusion, or significant stenosis. 3. 50% stenosis of the origin of the right internal carotid artery. No evidence of dissection or focal vessel occlusion. Electronically signed by: Aryan Melara M.D. 07/20/2017 10:04 PM Dictated Date/Time: 07/20/2017 9:53 PM . EKG EKG performed at 20:31 reviewed and demonstrated baseline artifact, NSR at 66 / minute, no acute changes. . Impression Assessment and Plan SYNCOPE / ABNORMAL SPEECH / HEADACHE Syncopal episode may have been due to orthostasis. arrhythmia, cerebrovascular event. Abnormal speech- expressive aphasia vs dysarthria. Resolved. Possible TIA vs migraine vs transient cerebral hypoperfusion. Headache somewhat similar to usual migraine, but not exactly the same. CT head did not show any acute event. CTA cervical vessels demonstrated 50% right ICA stenosis. MRI brain ordered. Start antiplatelet therapy- will opt for clopidogrel in light of history of UGI bleed. Lipid management as discussed below. Monitor for arrhythmias. Check echo. PT / OT / SIGNWRITER evals. Consult Neuro. DYSLIPIDEMIA Has been taking simvastatin. Check lipid profile. Will transition to high-intensity statin therapy in light of newly noted carotid artery disease and possible TIA or stroke. Start atorvastatin 40 mg daily. HYPERTENSION Hold HCTZ in light of syncope. Continue losartan. Follow and titrate Rx. MIGRAINE HEADACHES Continue usual regimen. RESTLESS LEGS Continue Sinemet. VTE PROPHYLAXIS Moderate risk for VTE. SQ enoxaparin. Ambulate. RESUSCITATION STATUS Discussed with patient. She has a living will. She would like resuscitation attempted in the event of a cardiopulmonary arrest if there is a reasonable chance of a meaningful recovery, but does not want prolonged extraordinary measures if prognosis is poor. Therefore, code status = "Level 1" (full resuscitation). . Advanced Directives Existing Living Will: Yes Existing Power of Incident Handler: No VTE Prophylaxis VTE Risk Assessment Done? Y/N: Yes Risk Level: Moderate Given or contraindicated: Enoxaparin (Lovenox)SQ
[2017-07-21] MEDS ORDERED: ZOLMITRIPTAN 2.5 MG PRN (01:45)
[2017-07-21] MEDS ORDERED: SUMATRIPTAN SUCCINATE 50 MG TAB PO PRN (01:45)
[2017-07-21] MEDS ORDERED: ACETAMINOPHEN 500 MG TAB PO PRN (01:45)
[2017-07-21] MEDS ORDERED: PHARMACIST DISCHARGE MED REC CONSULT PRN (01:45)
[2017-07-21] MEDS ORDERED: HYDROCODONE/ACETAMIN 5/325MG TAB PO PRN (01:45)
[2017-07-21] MEDS ORDERED: DIAZEPAM 5MG TAB PO PRN (01:45)
[2017-07-21] MEDS ORDERED: INFLUENZA ADMINISTRATION CHARGE ONE (02:30)
[2017-07-21] MEDS ORDERED: IV FLUIDS COMPLETED PRN (02:30)
[2017-07-21] MEDS ORDERED: INFLUENZA VIRUS QUAD VACCINE 0.5 ML SYR IM. ONE (02:30)
[2017-07-21] MEDS ORDERED: CARBIDOPA/LEVODOPA 25/100MG TAB PO ONE (02:51)
[2017-07-21] MEDS ORDERED: DIAZEPAM 5MG TAB PO ONE (02:51)
[2017-07-21] MEDS ORDERED: AMITRIPTYLINE HCL 10 MG TAB PO ONE (02:51)
[2017-07-21] MEDS ORDERED: RANITIDINE HCL 150 MG TAB PO ONE (02:51)
[2017-07-21 06:28] LABS: PTT PATIENT 25.6 SECONDS (21.0-31.0)
--- NOTE | 2017-07-21 07:11 | DIAGNOSTIC IMAGING REPORT ---
BRAIN WITHOUT CONTRAST HISTORY: 67 years-old Female transient aphasia symptoms are acute in nature. COMPARISON: CTA of the neck 07/20/2017, CT head 07/22/2014 TECHNIQUE: Multiplanar multisequence MRI of the brain was obtained without contrast FINDINGS: 3 mm focus of slightly increased diffusion-weighted signal within the medial right parietal lobe, image 14 series 6 with additional similar-appearing lesion of the left temporal lobe image 13 series 6 which appear to demonstrate slightly decreased signal on the ADC map image 14 series 600 and image 13 series 600 respectively with minimal increased T2/FLAIR signal seen within this distribution of the left temporal lobe. No territorial infarctions. Midline structures including the corpus callosum, brainstem, optic chiasm, pituitary and pineal glands are unremarkable in the sagittal T1 series. No cerebellar tonsillar herniation. Mild degenerative changes of the imaged upper cervical spine. Mild atrophy. Moderate scattered foci of T2/FLAIR prolongation within the subcortical and periventricular white matter of the cerebral hemispheres bilaterally suggest chronic microvascular ischemic changes. No acute intracranial hemorrhage, midline shift, abnormal extra-axial collections or hydrocephalus. 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 No definite enhancement is seen within this distribution on the CTA of the head. No associated edema within this distribution. This is likely chronic in nature with a linear hypodensity seen within this area on CT study dated 07/22/2014. Previously questioned area of density involving the right cerebral hemisphere seen on CT of the head was likely artifactual. Major flow voids at the level of the skull base appear patent. Orbits are symmetric. Mastoid air cells are clear. Minimal mucosal thickening of the anterior right sphenoid sinus. The scalp, covering and soft tissues are unremarkable. IMPRESSION: 1. 3 mm focus of restricted diffusion of the medial right parietal lobe and punctate focus of restricted diffusion involving the left temporal lobe as above suggest tiny lacunar infarctions. No associated significant edema, mass effect or acute hemorrhage identified. 2. Mild atrophy with chronic microvascular ischemic changes. The above report was generated using voice recognition software. It may contain grammatical, syntax or spelling errors. Electronically signed by: Merlin Dow M.D. 07/21/2017 7:10 AM Dictated Date/Time: 07/21/2017 6:54 AM
[2017-07-21] MEDS: LOSARTAN POTASSIUM 50 MG TAB PO SCH (08:56)
[2017-07-21] MEDS: FLUOXETINE HCL 10 MG CAP PO SCH (08:57)
[2017-07-21] MEDS: CLOPIDOGREL BISULFATE 75 MG TAB PO SCH (08:57)
[2017-07-21] MEDS: PANTOprazole SOD 40 MG TAB PO SCH (08:57)
[2017-07-21] MEDS: ATORVASTATIN 40 MG TAB PO SCH (08:58)
[2017-07-21] MEDS: ENOXAPARIN 40 MG/0.4 ML SYR SC SCH (08:58)
--- NOTE | 2017-07-21 15:36 | ECHOCARDIOGRAM REPORT ---
*NOTICE TO RECEIVING [employer]Y This information is strictly Confidential and protected under [place] law. [place] law prohibits you from making any further disclosure of this information unless further disclosure is expressly permitted by the written consent of the person to whom it pertains or is authorized by law. A general authorization for the release of medical or other information is not sufficient for this purpose. Hospital accepts no responsibility if the information is made available to any other person, INCLUDING THE PATIENT. Interpretation Summary * Name: NICOLAS MELGAR Study Date: 07/21/2017 12:53 PM BP: 111/65 mmHg * Patient Location: [facility]\S\N288\S\1 HR: 85 * : 1950 (M/d/yyy) Gender: Female Height: 62 in * Age: 67 yrs Ethnicity: CA Weight: 148 lb * Ordering Physician: Viktor Noguera * Referring Physician: EFRAIN * Performed By: Shelley Naidu RDCS * * Reason For Study: CEREBRAL ISCHEMIA/ EMBOLUS * BSA: 1.7 m2 * -- Conclusions -- * Normal LV chamber size and wall thickness. * Normal LV systolic function, EF 60-65%. * No segmental left ventricular wall motion abnormalities are noted. * Grade I diastolic dysfunction. * No significant valvular pathology. * A patent foramen ovale is present and there is low risk for embolism. Procedure Details * A saline contrast injection was performed to assess for cardiac shunting. * The injection was performed through an intravenous line in the left arm. * The attending nurse who injected the saline contrast was ANAND ACEVEDO RN. * A total of 20 cc of agitated saline was given. Left Ventricle * The left ventricle is normal in size. * There is normal left ventricular wall thickness. * The left ventricular ejection fraction is normal. * No segmental left ventricular wall motion abnormalities are noted. * Ejection Fraction = 60-65%. * The left ventricular wall motion is normal. Right Ventricle * The right ventricular cavity size is normal (basal dimension <4.2 cm in right ventricular apical 4-chamber view). * The right ventricular systolic function is normal as assessed by tricuspid annular plane systolic excursion (TAPSE) (normal >1.5 cm). Atria * The left atrial size is normal. * Right atrial size is normal. * A patent foramen ovale is present and there is low risk for embolism. Mitral Valve * The mitral valve is normal in structure and function. Tricuspid Valve * The tricuspid valve is normal in structure and function. Aortic Valve * The aortic valve is normal in structure and function. Pulmonic Valve * The pulmonary valve is not well seen, but the Doppler examination is normal without significant regurgitation or stenosis. Great Vessels * The aortic root is normal size. Pericardium/Pleural * There is no pericardial effusion. Left Ventricular Diastolic Function * Grade I diastolic dysfunction, (abnormal relaxation pattern). MMode 2D Measurements and Calculations IVSd 0.96 cm IVSs 1.8 cm LVIDd 3.6 cm LVIDs 2.2 cm LVPWd 0.98 cm LVPWs 1.3 cm IVS/LVPW 0.98 FS 37.7 % EDV(Teich) 54.2 ml ESV(Teich) 16.9 ml EF(Teich) 68.8 % EDV(cubed) 46.4 ml ESV(cubed) 11.2 ml EF(cubed) 75.8 % % IVS thick 85.0 % % LVPW thick 34.8 % LV mass(C)d 103.0 grams LV mass(C)dI 61.2 grams/m\S\2 LV mass(C)s 117.6 grams LV mass(C)sI 69.9 grams/m\S\2 SV(Teich) 37.3 ml SI(Teich) 22.2 ml/m\S\2 SV(cubed) 35.2 ml SI(cubed) 20.9 ml/m\S\2 Ao root diam 2.7 cm Ao root area 5.6 cm\S\2 LA dimension 3.3 cm LA/Ao 1.2 LVAd ap4 20.9 cm\S\2 LVLd ap4 7.0 cm EDV(MOD-sp4) 51.0 ml EDV(sp4-el) 52.8 ml LVAs ap4 11.4 cm\S\2 LVLs ap4 6.1 cm ESV(MOD-sp4) 19.5 ml ESV(sp4-el) 18.2 ml EF(MOD-sp4) 61.7 % EF(sp4-el) 65.6 % LVAd ap2 20.1 cm\S\2 LVLd ap2 7.9 cm EDV(MOD-sp2) 43.1 ml EDV(sp2-el) 43.5 ml LVAs ap2 10.5 cm\S\2 LVLs ap2 6.4 cm ESV(MOD-sp2) 16.7 ml ESV(sp2-el) 14.5 ml EF(MOD-sp2) 61.3 % EF(sp2-el) 66.7 % LVLd %diff 11.0 % EDV(MOD-bp) 49.6 ml LVLs %diff 5.7 % ESV(MOD-bp) 18.4 ml EF(MOD-bp) 63.0 % SV(MOD-sp4) 31.5 ml SI(MOD-sp4) 18.7 ml/m\S\2 SV(MOD-sp2) 26.5 ml SI(MOD-sp2) 15.7 ml/m\S\2 SV(MOD-bp) 31.2 ml SI(MOD-bp) 18.6 ml/m\S\2 SV(sp4-el) 34.6 ml SI(sp4-el) 20.6 ml/m\S\2 SV(sp2-el) 29.0 ml SI(sp2-el) 17.3 ml/m\S\2 Doppler Measurements and Calculations MV E max kareen 81.0 cm/sec MV A max kareen 104.8 cm/sec MV E/A 0.77 MV dec time 0.24 sec Ao V2 max 133.6 cm/sec Ao max PG 7.1 mmHg Ao max PG (full) 1.7 mmHg LV V1 max PG 5.5 mmHg LV V1 max 117.1 cm/sec
--- NOTE | 2017-07-21 19:19 | Progress Note ---
Subjective Date of Service: Jul 21, 2017. Subjective Pt evaluation today including: conversation w/ patient, physical exam, lab review, review of studies, conversation w/ neuropsychology medical consultant, review of inpatient medication list Saw/examined the patient in room 288 She's doing well today No focal deficits No speech issues headaches have resolved Problem List Medical Problems: (1) Aphasia Status: Acute (2) Bilateral knee pain Status: Acute (3) Lower extremity cellulitis Status: Acute (4) Migraine headache Status: Chronic Review of Systems Constitutional: No fever, No chills Respiratory: No shortness of breath Cardiac: No chest pain Neurologic: No paralysis, No weakness, No numbness/tingling, No vertigo, No balance problems Medications Current Inpatient Medications Medications (Trade) Dose Ordered Sig/Jimmy Route Start Time Stop Time Status Last Admin Dose Admin Ioversol (Optiray 320) 100 ml UD PRN IV 07/20/17 20:30 07/24/17 20:29 Enoxaparin Sodium (Lovenox Inj) 40 mg DAILY SC 07/21/17 09:00 08/20/17 08:59 07/21/17 08:58 40 MG Acetaminophen (Tylenol Tab) 650 mg Q4H PRN PO 07/21/17 00:30 08/20/17 00:29 Diazepam (Valium Tab) 5 mg Q6 PRN PO 07/21/17 01:45 08/20/17 01:44 Diazepam (Valium Tab) 10 mg QPM PO 07/21/17 21:00 08/20/17 20:59 Fluoxetine HCl (Prozac Cap) 10 mg QAM PO 07/21/17 09:00 08/20/17 08:59 07/21/17 08:57 10 MG Acetaminophen/ Hydrocodone Bitart ([place] 5/325 Tab) 1 tab Q8H PRN PO 07/21/17 01:45 08/04/17 01:44 Losartan Potassium (coZAAR TAB) 100 mg DAILY PO 07/21/17 09:00 08/20/17 08:59 07/21/17 08:56 100 MG Metoprolol Succinate (Toprol Xl Tab) 25 mg QPM PO 07/21/17 21:00 08/20/17 20:59 Sumatriptan Succinate (Imitrex Tab) 50 mg UD PRN PO 07/21/17 01:45 08/20/17 01:44 07/21/17 12:08 50 MG Carbidopa/Levodopa (Sinemet 25/ 100MG Tab) 0.5 tab HS PO 07/21/17 21:00 08/20/17 20:59 Pantoprazole Sodium (Protonix Tab) 40 mg QAM PO 07/21/17 09:00 08/20/17 08:59 07/21/17 08:57 40 MG Ranitidine HCl (zANTac TAB) 75 mg HS PO 07/21/17 21:00 08/20/17 20:59 Tizanidine HCl (Zanaflex Tab) 2 mg HS PO 07/21/17 21:00 08/20/17 20:59 Atorvastatin Calcium (Lipitor Tab) 40 mg QAM PO 07/21/17 09:00 08/20/17 08:59 07/21/17 08:58 40 MG Clopidogrel Bisulfate (plAVix TAB) 75 mg QAM PO 07/21/17 09:00 08/20/17 08:59 07/21/17 08:57 75 MG Miscellaneous Information (Pharmacist Discharge Med Rec Consult) 1 ea UD PRN N/A 07/21/17 01:45 08/20/17 01:44 Miscellaneous (Iv Fluids Completed) 1 ea PRN PRN N/A 07/21/17 02:30 07/21/18 02:29 Amitriptyline HCl (Elavil Tab) 20 mg HS PO 07/21/17 21:00 08/20/17 20:59 Objective Vital Signs Date Time Temp Pulse Resp B/P (MAP) Pulse Ox O2 Delivery O2 Flow Rate FiO2 07/21/17 19:03 36.7 93 18 150/75 (100) 97 Room Air 07/21/17 16:00 Room Air 07/21/17 15:06 36.7 76 18 134/68 (90) 96 Room Air 07/21/17 12:22 85 20 111/65 (80) 99 Room Air 07/21/17 12:00 98 Room Air 07/21/17 11:10 36.7 76 18 115/68 (84) 96 Room Air 07/21/17 09:15 76 07/21/17 07:54 98 Room Air 07/21/17 07:06 36.7 74 18 113/62 (79) 96 Room Air 07/21/17 04:32 36.5 73 18 152/73 (99) 94 Room Air 07/21/17 04:00 98 Room Air 07/21/17 04:00 98 Room Air 07/21/17 01:03 74 20 140/82 98 Room Air 07/21/17 00:22 74 20 154/80 99 Room Air 07/20/17 23:33 Room Air 07/20/17 22:49 63 18 125/61 97 Room Air 07/20/17 21:58 98 Room Air 07/20/17 21:58 65 18 182/77 98 Room Air 07/20/17 21:23 66 07/20/17 19:49 36.7 71 18 136/87 99 Room Air Physical Exam General Appearance: no apparent distress Respiratory/Chest: chest non-tender, lungs clear, normal breath sounds, no respiratory distress, no accessory muscle use Cardiovascular: regular rate, rhythm, no edema, no murmur Neurologic/Psychiatric: racecourse barrier attendant II-XII nml as tested, no motor/sensory deficits, alert, normal mood/affect, oriented x 3 Laboratory Results Last 24 Hours Test 07/20/17 20:53 07/20/17 21:51 07/20/17 22:37 07/20/17 23:13 White Blood Count 5.09 K/uL Red Blood Count 4.55 M/uL Hemoglobin 13.3 g/dL Hematocrit 39.7 % Mean Corpuscular Volume 87.3 fL Mean Corpuscular Hemoglobin 29.2 pg Mean Corpuscular Hemoglobin Concent 33.5 g/dl Platelet Count 206 K/uL Mean Platelet Volume 10.7 fL Neutrophils (%) (Auto) 50.5 % Lymphocytes (%) (Auto) 36.9 % Monocytes (%) (Auto) 9.8 % Eosinophils (%) (Auto) 2.0 % Basophils (%) (Auto) 0.6 % Neutrophils # (Auto) 2.57 K/uL Lymphocytes # (Auto) 1.88 K/uL Monocytes # (Auto) 0.50 K/uL Eosinophils # (Auto) 0.10 K/uL Basophils # (Auto) 0.03 K/uL RDW Standard Deviation 44.6 fL RDW Coefficient of Variation 14.1 % Immature Granulocyte % (Auto) 0.2 % Immature Granulocyte # (Auto) 0.01 K/uL Sodium Level 138 mmol/L Potassium Level 3.7 mmol/L Chloride Level 103 mmol/L Carbon Dioxide Level 30 mmol/L Anion Gap 5.0 mmol/L Blood Urea Nitrogen 16 mg/dl Creatinine 0.88 mg/dl Est Creatinine Clear Calc Drug Dose 55.7 ml/min Estimated GFR () 77.7 Estimated GFR (Non- 67.0 BUN/Creatinine Ratio 18.1 Random Glucose 123 mg/dl Calcium Level 9.4 mg/dl Total Bilirubin 0.3 mg/dl Direct Bilirubin < 0.1 mg/dl Aspartate Amino Transf (AST/SGOT) 16 U/L Alanine Aminotransferase (ALT/SGPT) 21 U/L Alkaline Phosphatase 82 U/L Troponin I < 0.015 ng/ml Total Protein 7.3 gm/dl Albumin 3.9 gm/dl Lipase 185 U/L Urine Color YELLOW Urine Appearance CLEAR Urine pH 7.5 Urine Specific [place] 1.024 Urine Protein NEG Urine Glucose (UA) NEG Urine Ketones NEG Urine Occult Blood NEG Urine Nitrite NEG Urine Bilirubin NEG Urine Urobilinogen NEG Urine Leukocyte Esterase SMALL Urine WBC (Auto) 1-5 /hpf Urine RBC (Auto) 0-4 /hpf Urine Hyaline Casts (Auto) 0 /lpf Urine Epithelial Cells (Auto) 20-30 /lpf Urine Bacteria (Auto) NEG Bedside Glucose 63 mg/dl 156 mg/dl Test 07/21/17 01:07 07/21/17 05:18 Bedside Glucose 123 mg/dl Prothrombin Time 10.7 SECONDS Prothromb Time International Ratio 1.0 Activated Partial Thromboplast Time 25.6 SECONDS Partial Thromboplastin Ratio 1.0 Triglycerides Level 63 mg/dl Cholesterol Level 169 mg/dl HDL Cholesterol 54 mg/dl LDL Cholesterol, Calculated 102 mg/dl VLDL Cholesterol, Calculated 13 mg/dl Cholesterol/HDL Ratio 3.1 Assessment and Plan Acute CVA 07/21 appreciate neurology input Brain MRI suggest acute tiny infarcts echo shows a PFO plan is to check dopplers b/l LE and UE aspirin + Plavix Zocor changed to Lipitor check Ha1c PT/OT/speech 07/20 Syncopal episode may have been due to orthostasis. arrhythmia, cerebrovascular event. Abnormal speech- expressive aphasia vs dysarthria. Resolved. Possible TIA vs migraine vs transient cerebral hypoperfusion. Headache somewhat similar to usual migraine, but not exactly the same. CT head did not show any acute event. CTA cervical vessels demonstrated 50% right ICA stenosis. MRI brain ordered. Start antiplatelet therapy- will opt for clopidogrel in light of history of UGI bleed. Lipid management as discussed below. Monitor for arrhythmias. Check echo. PT / OT / CLOUD DEVELOPER evals. Consult Neuro. DYSLIPIDEMIA Has been taking simvastatin. Check lipid profile. Will transition to high-intensity statin therapy in light of newly noted carotid artery disease and possible TIA or stroke. Start atorvastatin 40 mg daily. HYPERTENSION Hold HCTZ in light of syncope. Continue losartan. Follow and titrate Rx. MIGRAINE HEADACHES Continue usual regimen. RESTLESS LEGS Continue Sinemet. VTE PROPHYLAXIS Moderate risk for VTE. SQ enoxaparin. Ambulate. RESUSCITATION STATUS Discussed with patient. She has a living will. She would like resuscitation attempted in the event of a cardiopulmonary arrest if there is a reasonable chance of a meaningful recovery, but does not want prolonged extraordinary measures if prognosis is poor. Therefore, code status = "Level 1" (full resuscitation).
[2017-07-21] MEDS ORDERED: METOPROLOL SUCC 25MG EXT REL TAB PO SCH (21:00)
[2017-07-21] MEDS ORDERED: DIAZEPAM 5MG TAB PO SCH (21:00)
[2017-07-21] MEDS ORDERED: RANITIDINE HCL 150 MG TAB PO SCH (21:00)
[2017-07-21] MEDS ORDERED: SIMVASTATIN 10 MG TAB PO SCH (21:00)
[2017-07-21] MEDS ORDERED: CARBIDOPA/LEVODOPA 25/100MG TAB PO SCH (21:00)
[2017-07-21] MEDS ORDERED: AMITRIPTYLINE HCL 10 MG TAB PO SCH ×2 (21:00)
--- NOTE | 2017-07-21 22:49 | DIAGNOSTIC IMAGING REPORT ---
BILATERAL LOWER EXTREMITY VENOUS DOPPLER HISTORY: Syncope. Patent foramen ovale. COMPARISON STUDY: None. FINDINGS: There is normal compressibility, flow, and augmentation within the bilateral lower extremity deep venous systems. IMPRESSION: No DVT within the right or left lower extremity. Electronically signed by: Jerome Cary M.D. 07/21/2017 10:48 PM Dictated Date/Time: 07/21/2017 10:47 PM
--- NOTE | 2017-07-21 22:52 | DIAGNOSTIC IMAGING REPORT ---
Bilateral UPPER EXTREMITY VENOUS DOPPLER HISTORY: Syncope. COMPARISON STUDY: None. FINDINGS: The internal jugular veins are patent. There is normal flow within the bilateral subclavian veins. There is normal flow and compressibility within the lateral axillary, basilic, brachial, radial, ulnar veins. The right cephalic vein is patent. Thrombus seen within the cephalic vein at the left upper arm. This is nearly occlusive. IMPRESSION: 1. No DVT within the right or left upper extremity. 2. Thrombus seen within the left cephalic vein which is considered to be a superficial vein. Electronically signed by: Jerome Cary M.D. 07/21/2017 10:50 PM Dictated Date/Time: 07/21/2017 10:48 PM
--- NOTE | 2017-07-22 01:49 | NEUROLOGY CONSULTATION ---
DATE OF CONSULTATION: 07/21/2017 REASON FOR CONSULTATION: Syncope. HISTORY OF PRESENT ILLNESS: The patient is a 67-year-old right-handed female with a history of hypertension, dyslipidemia, pulmonary embolus, migraine. The patient has relatively frequent migraines for which she is on Zanaflex prophylaxis. On the morning of admission, she had felt well. She has been up, standing for several minutes and suddenly her vision became black without any actual lightheadedness or vertigo. She reports that she floated through the floor. She feels she must been grabbed onto her brass headboard, the glass has hit the headboard and her heard her hit and found her down on the ground. She was probably out for a few seconds, was not incontinent are otherwise injured. She had garbled speech for about 10 seconds and then very soon thereafter she developed a sudden severe headache which was typical for migraine, but atypical in that it escalated rapidly. She had typical visual phenomenon on that she experience with her headache. Did not notice any change otherwise in language, facial droop, weakness or numbness. She continued to feel mildly generally weak and took Imitrex p.o., Valium and hydrocodone. She rested from 9:30 to 11:30, symptoms persisted and therefore at 2:30 came to medical attention as she had 1, had a syncopal episode and 2, had a speech dysfunction and 3, had ongoing headache that was more severe than typical. She has a very remotely of neurologic symptoms other than visual and accompanying headache which include numbness and tingling in the left arm, lasting 30 minutes at the onset of the headache. She has not had any accompanying neurologic symptoms since age 28. She has been otherwise well. There was no chest pain, palpitation, shortness of breath. She had recent Mohs surgery on her left becerra for a squamous cell carcinoma. She otherwise has not had any medical or dental procedures, chiropractic manipulation of the neck or trauma. PAST MEDICAL HISTORY: Dyslipidemia, hypertension, reflux, basal cell carcinoma, squamous cell carcinoma, history of GI bleed in related to aspirin and nonsteroidals, pulmonary embolus which the patient attributes to pneumonia. At that time, protein C&S were mildly high, factor V was negative, prothrombin gene negative, MTHFR heterozygous. At that time I do note anticardiolipin antibody was negative and I do not see that she had antithrombin III checked. SURGICAL HISTORY: TAHBSO, total knee replacement bilaterally. SOCIAL HISTORY: Nonsmoker, nondrinker. ALLERGIES: ADHESIVE, DEPAKOTE. MEDICATIONS: None of new or changed in dose recently. Amitriptyline at bedtime, Sinemet 25/100 half tablet q.p.m., Dexilant 60 mg, Valium 10 mg at night, although typically she would take 5 mg, Prozac 10, HCTZ, losartan, metoprolol, ranitidine, simvastatin and tizanidine p.r.n., hydrocodone, Imitrex, Zomig nasal spray. REVIEW OF SYSTEMS: As above. Additional cough for 2 weeks. IMAGING: MRI brain, which I have reviewed, shows subtle restricted diffusion in the right medial parietal lobe at 3 mm and a punctate focus of restricted diffusion in the left temporal lobe suggesting tiny lacunar infarctions. 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 CTA of the head and neck, hyperdensity in the right posterior fossa felt to be artifactual related to volume averaging of the skull base, the transiting dural venous sinus and adjacent calcified choroid vessels documenting for hemorrhage. If clinical concern, noncontrast MRI could be obtained characteristically, this was prior to the MRI. No aneurysm, focal vessel occlusion or significant stenosis, 50% stenosis of the right internal carotid. Venous Doppler of the lower showed no DVT in the lower and in the upper shows thrombus within the left cephalic vein which is considered to be a superficial vein. Her echocardiography revealed a small PFO although the reading last putter away did not comment as to whether there was a right to left shunt. The left atrial sides were normal with no significant wall motion abnormality. Electrocardiogram, normal sinus rhythm. PHYSICAL EXAMINATION: VITAL SIGNS: ON admission, 36.7, 71, 18, 136/87, 99%. NEUROLOGIC: The patient is awake and alert, an excellent historian. There is normal speech and language. Her affect is appropriate. No temporal tenderness. Pupils are equal, round, reactive to light. The optic nerves are unremarkable. Normal sanz, motility, facial sensation and symmetry. Symmetric strength, no drift. Normal rapid alternating movement. Symmetric reflexes. Downgoing toes. [id number] and [id number] are normal. Gait is unremarkable. Sensation is intact bilaterally with light touch, temperature and vibration sense. IMPRESSION: 1. This patient presented with a syncopal episode. Radiographically, has evidence of suspected minor bilateral lacunar infarction to vascular distributions raising the question of a cardioembolic event. With regard to the syncope given that there was blindness without lightheadedness, that could have represented some posterior circulation ischemia, hypoperfusion or arrhythmia. I doubt seizure. 2. Although this could be migrainous infarction, it would not be typical for it to be bilateral and that is the diagnosis of exclusion. Would recommend as you have done ultrasound of the upper and lower extremities, have cardiology comment on the degree of shunt. I would perform an MRV due to some clinical question of some confluence of skull base, sinuses and patient's prior history of clots as well as severe headache and loss of consciousness onset. Given that the there is some equivocal nature of the infarction, I would not empirically anticoagulate. I would recommend aspirin and Plavix at present. I would perform a CardioNet monitor as an outpatient and I would recommend checking an antithrombin III. Also for the sake of completion, I would recommend an EEG. I have escalated the dose of amitriptyline which is being used for migraine prophylaxis, the patient has 2-3 migraines per week and given the presence of the cerebellar infarctions, triptans are relatively contraindicated so I think it is important to see if we can prophylax these headaches better. Ultimately I will leave that decision regarding triptan uses up to Dr. Bonilla. We will follow with you. ADAL
[2017-07-22 04:47] VITALS: BP 126/68; PULSE 64; TEMP 36.7; O2SAT 95
--- NOTE | 2017-07-22 06:59 | DIAGNOSTIC IMAGING REPORT ---
MRV HEAD WITHOUT CONTRAST HISTORY: 67 years-old Female r/o sinus thrombosis recent syncope with speech difficulty and history of migraines. History of skin cancer. COMPARISON: CTA of the head 07/20/2017, MRI brain 07/21/2017 TECHNIQUE: MRV was obtained without contrast with MIP reformats. FINDINGS: The dural venous sinuses appear patent and unremarkable, notably the superior sagittal, transverse and sigmoidal sinuses and imaged internal jugular veins appear patent. No focal abnormality identified within the right posterior fossa to explain the previously questioned abnormality on CTA of the head 07/20/2017. The right vein of [place] appears unremarkable and the left is somewhat hypoplastic, likely within normal limits. The straight sinus, vein of Benny, internal cerebral vein and inferior sagittal sinuses also appear patent. IMPRESSION: No evidence of dural venous sinus thrombosis. The above report was generated using voice recognition software. It may contain grammatical, syntax or spelling errors. Electronically signed by: Merlin Dow M.D. 07/22/2017 6:58 AM Dictated Date/Time: 07/22/2017 6:45 AM
[2017-07-22] MEDS: LOSARTAN POTASSIUM 50 MG TAB PO SCH (07:44)
[2017-07-22] MEDS: PANTOprazole SOD 40 MG TAB PO SCH (07:44)
[2017-07-22] MEDS: CLOPIDOGREL BISULFATE 75 MG TAB PO SCH (07:44)
[2017-07-22] MEDS: ATORVASTATIN 40 MG TAB PO SCH (07:44)
[2017-07-22] MEDS: FLUOXETINE HCL 10 MG CAP PO SCH (07:46)
[2017-07-22] MEDS: ENOXAPARIN 40 MG/0.4 ML SYR SC SCH (07:47)
[2017-07-22 08:10] LABS: HEMATOCRIT 36.3 % (37-47); HEMOGLOBIN 12.2 g/dL (12.0-16.0); MEAN CELL VOLUME 86.8 fL (80-100); MEAN CORPUSCULAR HEMOGLOBIN 29.2 pg (25-34); MEAN CORPUSCULAR HGB CONC 33.6 g/dl (32-36); MEAN PLATELET VOLUME 10.7 fL (7.4-10.4); PLATELET COUNT 182 K/uL (130-400); RED CELL DISTRIBUTION WIDTH CV 14.3 % (11.5-14.5); RED CELL DISTRIBUTION WIDTH SD 44.7 fL (36.4-46.3); WHITE BLOOD COUNT 6.96 K/uL (4.8-10.8)
[2017-07-22 08:23] LABS: HEMOGLOBIN A1C 5.7 % (4.5-5.6)
[2017-07-22 08:28] LABS: CALCIUM 8.6 mg/dl (8.5-10.1); CREATININE 0.87 mg/dl (0.60-1.20); POTASSIUM 3.9 mmol/L (3.5-5.1)
[2017-07-22] MEDS ORDERED: ASPIRIN 81 MG ECTAB PO SCH (09:00)
--- NOTE | 2017-07-22 09:53 | Progress Note ---
Subjective Date of Service: Jul 22, 2017. Subjective Pt evaluation today including: conversation w/ patient, physical exam, lab review, review of studies, review of inpatient medication list Saw/examined the patient in room 288 Headache improved No neurological deficits ambulating well Problem List Medical Problems: (1) Aphasia Status: Acute (2) Bilateral knee pain Status: Acute (3) Lower extremity cellulitis Status: Acute (4) Migraine headache Status: Chronic Review of Systems Constitutional: No fever, No chills Respiratory: No shortness of breath Cardiac: No chest pain, No palpitations Neurologic: No memory loss, No paralysis, No weakness, No numbness/tingling, No vertigo, No balance problems Medications Current Inpatient Medications Medications (Trade) Dose Ordered Sig/Jimmy Route Start Time Stop Time Status Last Admin Dose Admin Ioversol (Optiray 320) 100 ml UD PRN IV 07/20/17 20:30 07/24/17 20:29 Enoxaparin Sodium (Lovenox Inj) 40 mg DAILY SC 07/21/17 09:00 08/20/17 08:59 07/22/17 07:47 40 MG Acetaminophen (Tylenol Tab) 650 mg Q4H PRN PO 07/21/17 00:30 08/20/17 00:29 Diazepam (Valium Tab) 5 mg Q6 PRN PO 07/21/17 01:45 08/20/17 01:44 Diazepam (Valium Tab) 10 mg QPM PO 07/21/17 21:00 08/20/17 20:59 07/21/17 20:48 10 MG Fluoxetine HCl (Prozac Cap) 10 mg QAM PO 07/21/17 09:00 08/20/17 08:59 07/22/17 07:46 10 MG Acetaminophen/ Hydrocodone Bitart ([place] 5/325 Tab) 1 tab Q8H PRN PO 07/21/17 01:45 08/04/17 01:44 07/22/17 08:08 1 TAB Losartan Potassium (coZAAR TAB) 100 mg DAILY PO 07/21/17 09:00 08/20/17 08:59 07/22/17 07:44 100 MG Metoprolol Succinate (Toprol Xl Tab) 25 mg QPM PO 07/21/17 21:00 08/20/17 20:59 07/21/17 20:50 25 MG Sumatriptan Succinate (Imitrex Tab) 50 mg UD PRN PO 07/21/17 01:45 08/20/17 01:44 07/21/17 12:08 50 MG Carbidopa/Levodopa (Sinemet 25/ 100MG Tab) 0.5 tab HS PO 07/21/17 21:00 08/20/17 20:59 07/21/17 20:48 0.5 TAB Pantoprazole Sodium (Protonix Tab) 40 mg QAM PO 07/21/17 09:00 08/20/17 08:59 07/22/17 07:44 40 MG Ranitidine HCl (zANTac TAB) 75 mg HS PO 07/21/17 21:00 08/20/17 20:59 07/21/17 20:49 75 MG Tizanidine HCl (Zanaflex Tab) 2 mg HS PO 07/21/17 21:00 08/20/17 20:59 07/21/17 20:49 2 MG Atorvastatin Calcium (Lipitor Tab) 40 mg QAM PO 07/21/17 09:00 08/20/17 08:59 07/22/17 07:44 40 MG Clopidogrel Bisulfate (plAVix TAB) 75 mg QAM PO 07/21/17 09:00 08/20/17 08:59 07/22/17 07:44 75 MG Miscellaneous Information (Pharmacist Discharge Med Rec Consult) 1 ea UD PRN N/A 07/21/17 01:45 08/20/17 01:44 Miscellaneous (Iv Fluids Completed) 1 ea PRN PRN N/A 07/21/17 02:30 07/21/18 02:29 Amitriptyline HCl (Elavil Tab) 20 mg HS PO 07/21/17 21:00 08/20/17 20:59 07/21/17 20:48 20 MG Aspirin (Ecotrin Tab) 81 mg QAM PO 07/22/17 09:00 08/21/17 08:59 Objective Vital Signs Date Time Temp Pulse Resp B/P (MAP) Pulse Ox O2 Delivery O2 Flow Rate FiO2 07/22/17 08:00 Room Air 07/22/17 04:47 36.7 64 16 126/68 (87) 95 Room Air 07/22/17 04:00 Room Air 07/21/17 23:53 36.4 76 18 149/71 (97) 94 Room Air 07/21/17 23:30 Room Air 07/21/17 20:00 Room Air 07/21/17 19:03 36.7 93 18 150/75 (100) 97 Room Air 07/21/17 16:00 Room Air 07/21/17 15:06 36.7 76 18 134/68 (90) 96 Room Air 07/21/17 12:22 85 20 111/65 (80) 99 Room Air 07/21/17 12:00 98 Room Air 07/21/17 11:10 36.7 76 18 115/68 (84) 96 Room Air Physical Exam General Appearance: no apparent distress Respiratory/Chest: lungs clear, normal breath sounds, no respiratory distress, no accessory muscle use Cardiovascular: regular rate, rhythm, no edema, no gallop, no JVD, no murmur Extremities: normal inspection, no pedal edema Neurologic/Psychiatric: no motor/sensory deficits, alert, normal mood/affect Laboratory Results Last 24 Hours Test 07/22/17 07:53 White Blood Count 6.96 K/uL Red Blood Count 4.18 M/uL Hemoglobin 12.2 g/dL Hematocrit 36.3 % Mean Corpuscular Volume 86.8 fL Mean Corpuscular Hemoglobin 29.2 pg Mean Corpuscular Hemoglobin Concent 33.6 g/dl RDW Standard Deviation 44.7 fL RDW Coefficient of Variation 14.3 % Platelet Count 182 K/uL Mean Platelet Volume 10.7 fL Sodium Level 139 mmol/L Potassium Level 3.9 mmol/L Chloride Level 107 mmol/L Carbon Dioxide Level 24 mmol/L Anion Gap 8.0 mmol/L Blood Urea Nitrogen 18 mg/dl Creatinine 0.87 mg/dl Est Creatinine Clear Calc Drug Dose 55.9 ml/min Estimated GFR () 78.8 Estimated GFR (Non- 68.0 BUN/Creatinine Ratio 20.9 Random Glucose 86 mg/dl Estimated Average Glucose 117 mg/dl Hemoglobin A1c 5.7 % Calcium Level 8.6 mg/dl Magnesium Level 2.4 mg/dl Assessment and Plan Acute CVA 07/22 R Parietal and L Temporal Infarcts aspirin + Plavix + statin checked Doppler and venogram MRI - no DVTs noted echo shows small PFO will need cardionet monitoring as outpatient 07/21 appreciate neurology input Brain MRI suggest acute tiny infarcts echo shows a PFO plan is to check dopplers b/l LE and UE aspirin + Plavix Zocor changed to Lipitor check Ha1c PT/OT/speech 07/20 Syncopal episode may have been due to orthostasis. arrhythmia, cerebrovascular event. Abnormal speech- expressive aphasia vs dysarthria. Resolved. Possible TIA vs migraine vs transient cerebral hypoperfusion. Headache somewhat similar to usual migraine, but not exactly the same. CT head did not show any acute event. CTA cervical vessels demonstrated 50% right ICA stenosis. MRI brain ordered. Start antiplatelet therapy- will opt for clopidogrel in light of history of UGI bleed. Lipid management as discussed below. Monitor for arrhythmias. Check echo. PT / OT / NURSE CONSULTANT evals. Consult Neuro. DYSLIPIDEMIA Has been taking simvastatin. Check lipid profile. Will transition to high-intensity statin therapy in light of newly noted carotid artery disease and possible TIA or stroke. Start atorvastatin 40 mg daily. HYPERTENSION Hold HCTZ in light of syncope. Continue losartan. Follow and titrate Rx. MIGRAINE HEADACHES Continue usual regimen. RESTLESS LEGS Continue Sinemet. VTE PROPHYLAXIS Moderate risk for VTE. SQ enoxaparin. Ambulate. RESUSCITATION STATUS Discussed with patient. She has a living will. She would like resuscitation attempted in the event of a cardiopulmonary arrest if there is a reasonable chance of a meaningful recovery, but does not want prolonged extraordinary measures if prognosis is poor. Therefore, code status = "Level 1" (full resuscitation).
[2017-07-22 10:48] VITALS: BP 107/65; PULSE 65; TEMP 36.7; O2SAT 96
[2017-07-22 16:00] VITALS: O2SAT 96
[2017-07-22 16:07] VITALS: BP 114/66; PULSE 65; TEMP 36.9; O2SAT 94
--- NOTE | 2017-07-22 17:56 | ELECTROENCEPHALOGRAPH REPORT ---
FOR: Alejandra Menard MD CLINICAL DIAGNOSIS: Syncope, question seizures. EEG DIAGNOSIS: Essentially normal during wakefulness. DESCRIPTION OF TRACING: This EEG was done as a bedside recording and was of good technical quality. A few or no muscle movement artifacts. A simultaneous video analysis of patient movement and behavior was obtained. Photic stimulation was performed. Hyperventilation was not. Drowsiness and light sleep were not recorded. During wakefulness, there is evidence for a background rhythm in the alpha range of up to 10 Hz of maximum frequency and 30 microvolts of maximum amplitude. This is maximum posterior head regions bilaterally symmetrical. Polymorphic mid to upper frequency of modest voltage theta activity is seen over all head regions without clear focal or regional predominance. Anterior head region with maximal bilaterally symmetrical low voltage fast activity in the beta range is present. Photic stimulation provoked some modest driving response without a photomyogenic or photoparoxysmal component. At no time during the waking tracing is there evidence for potentially epileptogenic activity in the form of polyspike or spike wave bursts, focal sharp waves or focal spikes. INTERPRETATION: This EEG is essentially normal during wakefulness without evidence for focal or generalized encephalopathy and without evidence for potentially epileptogenic activity. [facility]
--- NOTE | 2017-07-22 17:58 | PROGRESS NOTE ---
DATE: 07/22/2017 SUBJECTIVE: The patient comes in today in followup of his syncopal episode followed by language dysfunction and dysarthria with a headache which was different than usual. MRI showing a small lacunar acute infarction in the deep medial right parietal lobe and left temporal lobe. EEG, MRV were normal. CTA showed no significant stenosis. Echo showed a PFO of low risk for embolism. The principal java developer has not yet commented as to whether there is a right to left shunt. The patient was started on aspirin and Plavix. She has not had any recurrent syncope and there has been no recurrent neurologic symptoms. OBJECTIVE: She is awake and alert. Normal speech and language. Affect appropriate. Normal extraocular motility, facial symmetry. Symmetric strength is noted. IMPRESSION: The patient had an episode of syncope with black vision without lightheadedness or vertigo followed by language dysfunction and then followed by a headache which was migraine type but much more severe than her typical. The patient is on multiple medications which could potentially cause orthostasis including Zanaflex, amitriptyline, Sinemet. That having been said, I think this syncope is possibly related to the ischemia and is unlikely 2 things happened at once Ie orthostasis and then stroke (in the absence of high grade vascular stenosis. PLAN: 1. Antiplatelet therapy with Plavix and aspirin for 3 months, then discontinue Plavix as the patient was not on aspirin prior to the event. 2. CardioNet monitor rule out atrial dysrhythmia. 3. I would ask cardiology to comment officially as to whether or not there was a right to left shunt 4. History of PE, her upper extremity and lower extremity Doppler was negative. I reviewed her pulmonary embolus workup in 2010 and it does not appear that there was an antithrombin III checked at that time. As such, I have ordered that. 5. History of migraine. I have increased the amitriptyline and advised her not to take triptans. She had a headache this morning, and so Valium as well as hydrocodone with good resolution as she had had previously when combining Valium, hydrocodone and Imitrex. She should not drive until she sees Dr. Bonilla in follow-up. She should see him in the next 2-3 weeks. I have no objection to the patient being discharged. ADAL
[2017-07-22] MEDS ORDERED: AMIT10TA6 PO (18:30)
[2017-07-22] MEDS ORDERED: ASPEC81 PO (18:30)
[2017-07-22] MEDS ORDERED: LPT40 PO (18:30)
[2017-07-22] MEDS ORDERED: PLV75 PO (18:30)
--- NOTE | 2017-07-22 18:32 | Discharge Instructions ---
Discharge Instructions Date of Service Jul 22, 2017. Admission Reason for Admission: Syncope Discharge Discharge Diagnosis / Problem: Acute CVA Discharge Goals Goal(s): Decrease discomfort, Improve function, Diagnostic testing, Therapeutic intervention Activity Recommendations Activity Limitations: per Instructions/Follow-up section . Instructions / Follow-Up Instructions / Follow-Up Please follow-up with your primary care physician You will be on Plavix, Aspirin, and Lipitor stop taking Zocor You will need a heart monitor as an outpatient follow-up with neurology no driving until follow-up with neurology Risk Factors for Stroke: You can reduce your chances of stroke by working with your medical provider to adopt a healthy lifestyle. Some specific ways to lower your chance of stroke are: * If you are a smoker, now is the time to stop smoking cigarettes * If you are diabetic, improve the control of your blood sugars * Avoid excessive amounts of alcohol * Control high blood pressure * Lose weight if you are overweight * Be sure to lead an active lifestyle * Eat a healthy diet low in salt, cholesterol and fat You should know about other risk factors for stroke that you are unable to control. These include: * Age 55 years or older * Male gender * Certain racial groups: , or / * Family History of Stroke, Mini stroke or Heart Attack * Sickle Cell Disease Follow Up: It is important for you to keep your follow up appointments with your medical provider. Current Hospital Diet Patient's current hospital diet: AHA Diet (Heart Healthy) Discharge Diet Recommended Diet: AHA Diet (Heart Healthy) Pending Studies Studies pending at discharge: no Laboratory Results Hemoglobin A1c Test 07/22/17 07:53 Range/Units Estimated Average Glucose 117 mg/dl Hemoglobin A1c 5.7 H 4.5-5.6 % Lipid Panel Test 07/21/17 05:18 Range/Units Triglycerides Level 63 0-150 mg/dl Cholesterol Level 169 0-200 mg/dl HDL Cholesterol 54 mg/dl Cholesterol/HDL Ratio 3.1 LDL Cholesterol, Calculated 102 mg/dl Medical Emergencies . Who to Call and When: Medical Emergencies: Call 911 immediately if you experience any of the following warning signs and symptoms of Stroke: * Sudden numbness or weakness of the face, arm or leg, especially on one side of the body * Sudden confusion, trouble speaking or understanding * Sudden trouble seeing in one or both eyes * Sudden trouble walking, dizziness, loss of balance or coordination * Sudden severe headache with no cause Do not delay calling 911 if you experience any warning signs or symptoms of a stroke. Delay in seeking medical attention may affect what treatments can be given to you. . Non-Emergent Contact Non-Emergency issues call your: Primary Care Provider . . "Provider Documentation" section prepared by Renetta Billy. . Stroke Core Measures Reason no t-PA for Stroke: Treatment not indicated Reason no antithrom by day 2: Treatment provided - N/A Reason no antithrom at D/C: Treatment provided - N/A Reason no statin at D/C: Treatment provided - N/A Reason no anticoag w/a fib: Treatment not indicated VTE Core Measure Inpt VTE Proph given/why not?: Enoxaparin (Lovenox)SQ
--- NOTE | 2017-07-22 18:33 | Discharge Summary ---
Discharge Summary Date of Service Jul 22, 2017. Discharge Summary Admission Date: Jul 21, 2017 at 00:22 Discharge Date: Jul 22, 2017 Discharge Disposition: Home Principal Diagnosis: Acute CVA Migraines HTN GERD Medication Reconciliation New Medications: Aspirin (Aspirin EC Low Dose) 81 Mg Ectab 81 MG PO QAM for 30 Days, #30 TABS Atorvastatin (Atorvastatin Calcium) 40 Mg Tab 40 MG PO QAM for 30 Days, #30 TAB Clopidogrel Bisulfate (Clopidogrel) 75 Mg Tab 75 MG PO QAM for 30 Days, #30 TAB Changed Medications: Amitriptyline Hcl (Elavil) 10 Mg Tab 20 MG PO HS for 30 Days, #60 TAB (Changed from: 10 MG) Continued Medications: Acetaminophen (Tylenol) 500 Mg Tab 1000 MG PO Q8H PRN for Pain, TAB Carbidopa/Levodopa (Sinemet 25MG/100MG) Unknown Strength Tab 0.5 TAB PO QPM, TAB Dexlansoprazole (Dexilant) 60 Mg Cap 60 MG PO DAILY Diazepam (Valium) 5 Mg Tab 5 MG PO Q6 PRN for Headache max 2/day Diazepam (Valium) 10 Mg Tab 10 MG PO QPM, TAB DO NOT DRIVE WITH MEDICATION Fluoxetine (Prozac) 10 Mg Cap 10 MG PO QAM, CAP Hydrochlorothiazide (Hydrochlorothiazide) 12.5 Mg Tab 12.5 MG PO 3XWK for 90 Days, TAB 3 Refills TAKE 12.5MG 3 TIMES WEEKLY ON TUESDAY, TUESDAY, TUESDAY Hydrocodone/Acetaminophen 5MG/325MG ([place] 5MG/325MG) Tab 1 TABLET PO TID PRN for Pain, TAB PRN PAIN Losartan Potassium (Cozaar) 100 Mg Tab 100 MG PO DAILY, TAB Metoprolol Succinate (Toprol Xl) 25 Mg Tab 25 MG PO QPM, #30 TAB Ranitidine HCl (Ranitidine 75) 75 Mg Tab 75 MG PO HS Tizanidine Hcl (Tizanidine Hcl) 2 Mg Cap 2 MG PO HS Discontinued Medications: Simvastatin (Zocor) 10 Mg Tab 10 MG PO QPM, TAB Sumatriptan Succinate (Imitrex) 50 Mg Tab 50 MG PO UD PRN for Headache, TAB Zolmitriptan (Zomig) 2.5 Mg Spr 2.5 MG INH UD PRN for Migraine 1 SPRAY NASALLY AT ONSET OF MIGRAINE Admission Information HPI (per Admitting provider): 64-year-old female followed by Dr. Wang for Internal Medicine and Dr. Bonilla for Neurology. History of hypertension, dyslipidemia, pulmonary embolism, migraine headaches, and other problems noted below. Experienced an episode of syncope this morning after arising from bed. She describes blacking out and a floating sensation as she fell to the floor. No associated chest pain, palpitations, dyspnea. No injuries from the fall. Apparently she lost consciousness for a brief period of time. reported that she was having difficulties with her speech- "gibberish." After the fall she developed right sided parietal / occipital headache similar to her usual migraine. Headache associated with visual aura. She took a dose of Imitrex and rested, but the headache persisted. Took a second dose of Imitrex and rested. When she awoke this afternoon, headache was better but she had a throbbing sensation in her head and the visual aura seemed worse than usual. Speech difficulties had resolved. No focal weakness of upper or lower extremities. No difficulty with ambulating. . Physical Exam (per Admitting): General Appearance: WD/WN, no apparent distress Head: normocephalic, atraumatic Eyes: normal inspection, PERRL, EOMI, sclerae normal, + pertinent finding ( conjunctivae clear) ENT: hearing grossly normal, TMs normal, pharynx normal Neck: supple, no adenopathy, thyroid normal, no carotid bruits, trachea midline Respiratory/Chest: lungs clear, no respiratory distress, no accessory muscle use Cardiovascular: regular rate, rhythm, no edema, no gallop, no JVD, no murmur , normal peripheral pulses Abdomen/GI: normal bowel sounds, non tender, soft, no organomegaly, no pulsatile mass Extremities/Musculoskelatal: normal inspection, no calf tenderness, normal capillary refill, no pedal edema Neurologic/Psych: 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 as tested (PERRL, EOMI, no facial palsy, no dysarthria or aphasia), no motor/sensory deficits (motor strength upper and lower extremities intact), alert, normal mood/affect, oriented x 3, + pertinent finding (patellar DTR's 1/2 bilat; plantar reflexes downgoing; finger to nose intact bilat) Skin: normal color, warm/dry, no rash, + pertinent finding (biopsy site LLE without erythema or drainage) Hospital Course Acute CVA 07/22 R Parietal and L Temporal Infarcts aspirin + Plavix + statin checked Doppler and venogram MRI - no DVTs noted echo shows small PFO will need cardionet monitoring as outpatient 07/21 appreciate neurology input Brain MRI suggest acute tiny infarcts echo shows a PFO plan is to check dopplers b/l LE and UE aspirin + Plavix Zocor changed to Lipitor check Ha1c PT/OT/speech 07/20 Syncopal episode may have been due to orthostasis. arrhythmia, cerebrovascular event. Abnormal speech- expressive aphasia vs dysarthria. Resolved. Possible TIA vs migraine vs transient cerebral hypoperfusion. Headache somewhat similar to usual migraine, but not exactly the same. CT head did not show any acute event. CTA cervical vessels demonstrated 50% right ICA stenosis. MRI brain ordered. Start antiplatelet therapy- will opt for clopidogrel in light of history of UGI bleed. Lipid management as discussed below. Monitor for arrhythmias. Check echo. 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 Consult Neuro. DYSLIPIDEMIA Has been taking simvastatin. Check lipid profile. Will transition to high-intensity statin therapy in light of newly noted carotid artery disease and possible TIA or stroke. Start atorvastatin 40 mg daily. HYPERTENSION Hold HCTZ in light of syncope. Continue losartan. Follow and titrate Rx. MIGRAINE HEADACHES Continue usual regimen. RESTLESS LEGS Continue Sinemet. VTE PROPHYLAXIS Moderate risk for VTE. SQ enoxaparin. Ambulate. RESUSCITATION STATUS Discussed with patient. She has a living will. She would like resuscitation attempted in the event of a cardiopulmonary arrest if there is a reasonable chance of a meaningful recovery, but does not want prolonged extraordinary measures if prognosis is poor. Therefore, code status = "Level 1" (full resuscitation). Total time spent on discharge = 45 minutes This includes examination of the patient, discharge planning, medication reconciliation, and communication with other providers. Discharge Instructions Please follow-up with your primary care physician You will be on Plavix, Aspirin, and Lipitor stop taking Zocor You will need a heart monitor as an outpatient follow-up with neurology no driving until follow-up with neurology
[2017-07-22 18:51] VITALS: BP 114/66; PULSE 65; TEMP 36.9; O2SAT 94
--- NOTE | 2017-07-22 19:40 | Pharmacy Progress Note ---
Pharmacist Stroke Counseling Date of Service Jul 22, 2017. Scope Pharmacy has been consulted to provide medication discharge counseling for this patient admitted with ischemic stroke/hemorrhagic stroke/ transient ischemic attack as per the Pharmacist Discharge Counseling for Stroke Patients Protocol. Medications on Discharge New Medications: Aspirin (Aspirin EC Low Dose) 81 Mg Ectab 81 MG PO QAM for 30 Days, #30 TABS Atorvastatin (Atorvastatin Calcium) 40 Mg Tab 40 MG PO QAM for 30 Days, #30 TAB Clopidogrel Bisulfate (Clopidogrel) 75 Mg Tab 75 MG PO QAM for 30 Days, #30 TAB Changed Medications: Amitriptyline Hcl (Elavil) 10 Mg Tab 20 MG PO HS for 30 Days, #60 TAB (Changed from: 10 MG) Continued Medications: Acetaminophen (Tylenol) 500 Mg Tab 1000 MG PO Q8H PRN for Pain, TAB Carbidopa/Levodopa (Sinemet 25MG/100MG) Unknown Strength Tab 0.5 TAB PO QPM, TAB Dexlansoprazole (Dexilant) 60 Mg Cap 60 MG PO DAILY Diazepam (Valium) 5 Mg Tab 5 MG PO Q6 PRN for Headache max 2/day Diazepam (Valium) 10 Mg Tab 10 MG PO QPM, TAB DO NOT DRIVE WITH MEDICATION Fluoxetine (Prozac) 10 Mg Cap 10 MG PO QAM, CAP Hydrochlorothiazide (Hydrochlorothiazide) 12.5 Mg Tab 12.5 MG PO 3XWK for 90 Days, TAB 3 Refills TAKE 12.5MG 3 TIMES WEEKLY ON TUESDAY, TUESDAY, TUESDAY Hydrocodone/Acetaminophen 5MG/325MG ([place] 5MG/325MG) Tab 1 TABLET PO TID PRN for Pain, TAB PRN PAIN Losartan Potassium (Cozaar) 100 Mg Tab 100 MG PO DAILY, TAB Metoprolol Succinate (Toprol Xl) 25 Mg Tab 25 MG PO QPM, #30 TAB Ranitidine HCl (Ranitidine 75) 75 Mg Tab 75 MG PO HS Tizanidine Hcl (Tizanidine Hcl) 2 Mg Cap 2 MG PO HS Discontinued Medications: Simvastatin (Zocor) 10 Mg Tab 10 MG PO QPM, TAB Sumatriptan Succinate (Imitrex) 50 Mg Tab 50 MG PO UD PRN for Headache, TAB Zolmitriptan (Zomig) 2.5 Mg Spr 2.5 MG INH UD PRN for Migraine 1 SPRAY NASALLY AT ONSET OF MIGRAINE Action The above medications, specifically ones for stroke treatment/prophylaxis, have been reviewed in detail with the patient and/or patient business center representative(s) prior to discharge. This includes indication, common adverse reactions, drug interactions, and medication administration. Medication counseling has been employed using the teach-back method to ensure understanding. Outcome The patient and/or patient business center representative(s) have demonstrated understanding of the medications. Please note, they are aware that the pharmacist will call them within 72 hours post-discharge to confirm that the appropriate medications are being taken and answer any further medication related questions the patient might have at that time. Contact information Individual to be contacted: Karla Jerry Relationship to patient (if applicable): Self Phone number: [phone] Best time to call: Any time after 8:00 AM Additional comments: - Met with patient at bedside prior to discharge. She is very pleasant and knowledgeable about her medications. Uses weekly pillbox. - Per Neurology, dual antiplatelet therapy with Aspirin and Plavix will be continued for at least 3 months. Patient to continue until instructed otherwise. - Patient reports history GI bleed/ulcers due to long-term use of Excedrin for migraines in past. She was previously advised to avoid NSAID's. Expressed apprehension about taking aspirin. Advised her to purchase enteric coated ASA. Assured her that low-dose ASA should have minimal risk for bleeding/GI ulcers ; instructed to take with food. - Advised monitor major bleeding/bruising, report to provider/ED. - Was on Simvastatin for years; understands Atorvastatin replaces it and is much more potent, recommended now due to her stroke and LDL = 102. - Patient aware to D/C Imitrex and Zomig. "Triptans" are contraindicated due to history stroke. She follows with Neurology for migraines. She understands Amitriptyline dose was incr' to 20mg HS (from 10mg) to help prevent migraines. She is extremely nervous about these changes (especially being unable to take "triptans"), but she will follow with Neurology to determine future plan. She will use other medications as directed/ordered by Neurology. - Follows with GI specialist. Has been on Dexilant for years and also takes H2 logan in the evening. Reports previously on another PPI (Prilosec?) which she says did not work. Did not discuss potential Dexilant drug-interaction with Plavix (possible decr' Plavix efficacy) with her due to patient's apprehension about above medication changes already. Furthermore, it seems like she will not be on Plavix long-term. Thank you for allowing pharmacy to be involved in the care of this patient. Please call [phone] or [phone] with any additional questions
--- NOTE | 2017-07-26 14:44 | Pharmacy Progress Note ---
Pharmacist Post D/C Phone Note Date of phone call: Jul 26, 2017. Individual with whom pharmacist spoke to: Karla Radha Mcfaddenson The following questions were reviewed during the phone call with responses listed below each: Can you tell me the medications that you are currently taking as well as when and how you take each medication? - New medications, Baby aspirin, clopidogrel and atorvastatin as well as an increased dose of amitriptyline 10mg ---> 20mg for migraine prevention When have you missed any doses of your medications? - No What side effects are you having from your medications? - Orthostatic hypotension. Discussed this topic: She noted that the patient information sheets with aspirin and clopidogrel list these as questioned whether they are causing her dizziness. We discussed the dose increase of amitriptyline as the likely well-documented cause of orthostatic hypotension and the typical adjustment period associated with TCA's after dose increases. She stated that she has no evidence of bleeding with the exception of mildly blood tinged nasal discharge upon blowing her nose. I suggested that she try some saline spray, which she has, to try to moisten nasal membranes to rule out dry air in the house as a cause. She will follow-up with her primary care provider in the next 48 hours. She had hoped to visit her neurologist first, however, there we no appointments available What questions do you have about your medications? - As above, she wondered the possibility of these medications causing slight drowsiness What problems are you having obtaining your medications? - None When is your next appointment with your primary care doctor? - Will be seen within the next 48 hours. Additional comments: - She expressed her anxiety regarding the discontinuation of sumatriptan ( Imitrex) relating her history of migraines. Thus far, this has not been an issue. - Due to the holiday, my follow-up phone call was greater than 72 hours since discharge. Thank you for allowing us to be involved in the care of this patient.
== END 2017-07-22 19:56 | disposition home or self-care (01) | DRG 66 ==
LOC: C.EDB 19:44 → C.MED 07-21 00:22 → ENRESERV 07-21 00:55 → OBSVTOIN 07-22 15:01
PROVIDERS: ADMIT Hospitalist; ATTEND Family Medicine
DX: I63.9 Cerebral infarction, unspecified (principal); R47.01 Aphasia; G43.909 Migraine, unspecified, not intractable, without status migrainosus; I10 Essential (primary) hypertension; E78.5 Hyperlipidemia, unspecified; K21.9 Gastro-esophageal reflux disease without esophagitis; G25.81 Restless legs syndrome; Z79.899 Other long term (current) drug therapy; Z85.828 Personal history of other malignant neoplasm of skin; Z86.711 Personal history of pulmonary embolism; Z88.8 Allergy status to other drugs, medicaments and biological substances

== ENCOUNTER 2017-10-17 23:27 | Inpatient (IN) | payer OTHER ==
[~2017-10-17] VITALS: Ht 157.5 cm; Wt 75.4 kg
[~2017-10-17 23:27] MED LIST changes: -ACET-1138 PO; +ACET-1256 PO; +ASPEC81 PO; -ASPI81CH2 PO; +CARB25TA12 PO; -CEPH500C2 PO; -CLB200 PO; -CLC100 PO; +DEXL60CA4 PO; +DIAZ10TA PO; +HYDR-5688 PO; +HYDR12.55 PO; -LOSA100T2 PO; +LOSA1TAB38 PO; +LPT40 PO; -MULT-506 PO; -NXM/40 PO; -OXYC-738 PO; +PLV75 PO; +RANI1TAB75 PO; -RXC5 PO; -SENN-65 PO; -SIMV10TA2 PO; -SUMA50TA15 PO
[2017-10-17] MEDS ORDERED: LOSA50TA6 PO (23:53)
[2017-10-17] MEDS ORDERED: ACETAMINOPHEN 500 MG TAB PO STA (23:54)
[2017-10-17] MEDS ORDERED: AMT10 PO (23:57)
[2017-10-18 00:12] LABS: BASO % 0.2 %; BASO ABS # 0.02 K/uL (0-0.2); EOS % 0.4 %; EOS ABS # 0.05 K/uL (0-0.5); HEMATOCRIT 36.6 % (37-47); HEMOGLOBIN 12.4 g/dL (12.0-16.0); IG# 0.04 K/uL (0.00-0.02); LYMPH % 7.1 %; LYMPH ABS # 0.91 K/uL (1.2-3.4); MEAN CELL VOLUME 84.9 fL (80-100); MEAN CORPUSCULAR HEMOGLOBIN 28.8 pg (25-34); MEAN CORPUSCULAR HGB CONC 33.9 g/dl (32-36); MEAN PLATELET VOLUME 9.8 fL (7.4-10.4); MONO % 5.1 %; MONO ABS # 0.66 K/uL (0.11-0.59); NEUT % 86.9 %; NEUT ABS # 11.15 K/uL (1.4-6.5); PLATELET COUNT 253 K/uL (130-400); RED CELL DISTRIBUTION WIDTH CV 12.9 % (11.5-14.5); WHITE BLOOD COUNT 12.83 K/uL (4.8-10.8)
[2017-10-18] MEDS: SODIUM CHLORIDE 0.9% 1000ML 1,000 ML IV SCH ×2 (00:14→04:48)
[2017-10-18] MEDS ORDERED: SODIUM CHLORIDE 0.9% 1000ML 1,000 ML IV STA ×2 (00:24→03:33)
--- NOTE | 2017-10-18 00:27 | EMERGENCY ROOM VISIT NOTE ---
History Report prepared by Arnaldo: Claudia Solorio Under the Supervision of: Dr. Edelmira Rhodes D.O. First contact with patient: 23:32 Chief Complaint: OTHER COMPLAINT Stated Complaint: TREMORS IN EXTREMITIES History of Present Illness The patient is a 67 year old female who presents to the Emergency Room with complaints of recurrent back spasms since 1899 today. She currently rates her pain a 4/10 in severity. She reports chills, body aches, and uncontrollable shaking with associated muscle cramps that began at 1900 today. She states that she felt like she was going to swallow tongue. She reports a cough that has been ongoing for five days. She states the cough was initially tight and dry and then it became wet, though she denies producing any sputum. She notes a runny nose that began two days ago. She reports a fever, nausea, and vomiting. She feels like she has the flu. She states that she has been having these tremor episodes for two weeks. She reports the first episode was October 06, 2017 and the second was October 12, 2017. She states each episode is worse than the previous. She notes pain in her back and shoulders. She states that she felt a need to urinate and pass a bowel during the muscle spasms. She notes her stools have become harder, though she has increased fiber-based vegetables in her diet. She reports a history of a CVA and PE. She is taking Amytriptyline and was placed on an increased dose to 30 mg. She has a history of tremors. She denies any other changes to her medication. She regularly takes Aspirin and Plavix. She is taking blood thinner medication. Per EMS, the patient was administered Valium 2.5 mg IV, Zofran 4 mg IV, and 250 ml NSS bolus IV. Source of History: patient Onset: 1899 today Position: back Quality: other (spasms) Timing: other (recurrent) Associated Symptoms: + fevers, + chills, + cough, + nausea, + vomiting, + back pain Note: She notes muscle-spasms and body aches. She notes shoulder pain and runny nose. Review of Systems See HPI for pertinent positives & negatives. A total of 10 systems reviewed and were otherwise negative. Past Medical & Surgical Medical Problems: (1) Acute CVA (cerebrovascular accident) (2) Dyslipidemia (3) GERD (gastroesophageal reflux disease) (4) History of basal cell carcinoma (5) History of gastrointestinal bleeding (6) History of pulmonary embolism (7) History of squamous cell carcinoma of skin (8) Hypertension (9) Migraine headache (10) Respiratory failure, acute (11) Thyroid nodule Surgical Problems: (1) Status post SAMREEN-BSO (2) Total knee replacement status Family History No significant family history Social History Smoking Status: Never Smoker Smokeless Tobacco Use: No Drug Use: none Marital Status: Housing Status: lives with significant other Occupation Status: unemployed Current/Historical Medications Scheduled Amitriptyline HCl (Amitriptyline HCl), 30 MG PO HS Aspirin (Aspirin EC Low Dose), 81 MG PO QAM Atorvastatin (Lipitor), 40 MG PO QAM Carbidopa/Levodopa (Sinemet 25MG/100MG), 0.5 TAB PO QPM Clopidogrel Bisulfate (Clopidogrel), 75 MG PO QAM Dexlansoprazole (Dexilant), 60 MG PO DAILY Diazepam (Valium), 10 MG PO QPM Fluoxetine (Prozac), 10 MG PO QAM Hydrochlorothiazide (Hydrochlorothiazide), 12.5 MG PO 3XWK Losartan Potassium (Cozaar), 50 MG PO QAM Metoprolol Succinate (Toprol Xl), 25 MG PO QPM Ranitidine HCl (Ranitidine 75), 75 MG PO HS Tizanidine Hcl (Tizanidine Hcl), 2 MG PO HS Scheduled PRN Acetaminophen (Tylenol), 1,000 MG PO Q8H PRN for Pain Diazepam (Valium), 5 MG PO Q6 PRN for Headache Hydrocodone/Acetaminophen 5MG/325MG ([place] 5MG/325MG), 1 TABLET PO TID PRN for Pain Allergies Coded Allergies: Adhesives (Verified Allergy, Unknown, REDNESS [id number] TAPE OK, ) Valproic Acid (Verified Adverse Reaction, Intermediate, feels "out of it" , 10/17/17) Physical Exam Vital Signs Date Time Temp Pulse Resp B/P (MAP) Pulse Ox O2 Delivery O2 Flow Rate FiO2 10/18/17 04:36 96 Nasal Cannula 2.0 10/18/17 04:30 89 20 117/49 88 Room Air 10/18/17 03:36 102 10/18/17 02:39 105 20 103/49 91 Room Air 10/18/17 01:57 107 18 130/58 94 Room Air 10/18/17 00:22 37.8 107 18 153/75 94 Room Air 10/17/17 23:50 Room Air 10/17/17 23:35 102 10/17/17 23:33 39.2 104 18 139/79 97 Room Air Physical Exam GENERAL: alert, well appearing, anxious-nourished, no distress, non-toxic. EYE EXAM: normal conjunctiva, PERRL and EOM's grossly intact OROPHARYNX: no exudate, no erythema, lips, buccal mucosa, and tongue normal and mucous membranes are dry NECK: supple, no nuchal rigidity, no adenopathy, non-tender LUNGS: Clear to auscultation. Normal chest wall mechanics HEART: no murmurs, S1 normal and S2 normal ABDOMEN: abdomen soft, non-tender, normo-active bowel sounds, no masses, no rebound or guarding. BACK: Back is symmetrical on inspection and there is no deformity, no midline tenderness, no CVA tenderness. SKIN: no rashes and no bruising UPPER EXTREMITIES: upper extremities are grossly normal. LOWER EXTREMITIES: No pitting edema. NEURO EXAM: Normal sensorium, cranial nerves II-XII grossly intact, normal speech, no gross weakness of arms, no gross weakness of legs. Medical Decision & Procedures ER Provider Diagnostic Interpretation: X-ray: I interpreted the following studies. Chest: A one view study of the chest was reviewed and showed: No cardiomegaly. Question of left lower lobe infiltrate. Patient is rotated and poorly positioned. No wide mediastinum. No pulmonary edema. No right pleural effusion. Radiology results have been interpreted by the radiologist and reviewed by me. CTA CHEST: No evidence of pulmonary embolism. Findings consistent with pneumonia, mainly involving left lowe lober anteromedial basilar segments. Additional subsegmental airspace disease/atelectasis involving bilateral lower lobes, right middle lobe, and lingual. Small left pleural effusion. Previously noted right upper lobe nodule has resolved. No aortic aneurysm or dissection. Left thyroid nodule appears decreased in size from prior. Radiologist: Myron Hummel MD Study ready at 04:30 and initial results transmitted at 05:11 Laboratory Results 10/18/17 00:02 Red Blood Count 4.31, Mean Corpuscular Volume 84.9, Mean Corpuscular Hemoglobin 28.8, Mean Corpuscular Hemoglobin Concent 33.9, Mean Platelet Volume 9.8, Neutrophils (%) (Auto) 86.9, Lymphocytes (%) (Auto) 7.1, Monocytes (%) (Auto) 5.1, Eosinophils (%) (Auto) 0.4, Basophils (%) (Auto) 0.2, Neutrophils # (Auto) 11.15, Lymphocytes # (Auto) 0.91, Monocytes # (Auto) 0.66, Eosinophils # (Auto) 0.05, Basophils # (Auto) 0.02 10/18/17 00:02 Test 10/17/17 23:51 10/18/17 00:02 10/18/17 00:25 10/18/17 01:20 Bedside Lactic Acid Venous 2.29 mmol/L (0.90-1.70) White Blood Count 12.83 K/uL (4.8-10.8) Red Blood Count 4.31 M/uL (4.2-5.4) Hemoglobin 12.4 g/dL (12.0-16.0) Hematocrit 36.6 % (37-47) Mean Corpuscular Volume 84.9 fL (80-100) Mean Corpuscular Hemoglobin 28.8 pg (25-34) Mean Corpuscular Hemoglobin Concent 33.9 g/dl (32-36) Platelet Count 253 K/uL (130-400) Mean Platelet Volume 9.8 fL (7.4-10.4) Neutrophils (%) (Auto) 86.9 % Lymphocytes (%) (Auto) 7.1 % Monocytes (%) (Auto) 5.1 % Eosinophils (%) (Auto) 0.4 % Basophils (%) (Auto) 0.2 % Neutrophils # (Auto) 11.15 K/uL (1.4-6.5) Lymphocytes # (Auto) 0.91 K/uL (1.2-3.4) Monocytes # (Auto) 0.66 K/uL (0.11-0.59) Eosinophils # (Auto) 0.05 K/uL (0-0.5) Basophils # (Auto) 0.02 K/uL (0-0.2) RDW Standard Deviation 40.0 fL (36.4-46.3) RDW Coefficient of Variation 12.9 % (11.5-14.5) Immature Granulocyte % (Auto) 0.3 % Immature Granulocyte # (Auto) 0.04 K/uL (0.00-0.02) Prothrombin Time 10.1 SECONDS (9.0-12.0) Prothromb Time International Ratio 1.0 (0.9-1.1) Activated Partial Thromboplast Time 28.9 SECONDS (21.0-31.0) Partial Thromboplastin Ratio 1.1 Anion Gap 11.0 mmol/L (3-11) Est Creatinine Clear Calc Drug Dose 49.8 ml/min Estimated GFR () 68.2 Estimated GFR (Non- 58.9 BUN/Creatinine Ratio 14.4 (10-20) Calcium Level 8.7 mg/dl (8.5-10.1) Magnesium Level 2.0 mg/dl (1.8-2.4) Total Bilirubin 0.4 mg/dl (0.2-1) Aspartate Amino Transf (AST/SGOT) 31 U/L (15-37) Alanine Aminotransferase (ALT/SGPT) 40 U/L (12-78) Alkaline Phosphatase 102 U/L (45-117) Total Creatine Kinase 55 U/L (26-192) Total Protein 7.4 gm/dl (6.4-8.2) Albumin 3.4 gm/dl (3.4-5.0) Globulin 4.0 gm/dl (2.5-4.0) Albumin/Globulin Ratio 0.9 (0.9-2) Thyroid Stimulating Hormone (TSH) 1.630 uIu/ml (0.300-4.500) Monoscreen NEG (NEG) Influenza Type A Antigen Neg for Influ A (NEG) Influenza Type B Antigen Neg for Influ B (NEG) Urine Color YELLOW Urine Appearance CLOUDY (CLEAR) Urine pH 6.0 (4.5-7.5) Urine Specific [place] 1.022 (1.000-1.030) Urine Protein NEG (NEG) Urine Glucose (UA) NEG (NEG) Urine Ketones NEG (NEG) Urine Occult Blood NEG (NEG) Urine Nitrite NEG (NEG) Urine Bilirubin NEG (NEG) Urine Urobilinogen NEG (NEG) Urine Leukocyte Esterase MODERATE (NEG) Urine WBC (Auto) 5-10 /hpf (0-5) Urine RBC (Auto) 10-30 /hpf (0-4) Urine Hyaline Casts (Auto) 1-5 /lpf (0-5) Urine Epithelial Cells (Auto) 20-30 /lpf (0-5) Urine Bacteria (Auto) NEG (NEG) Test 10/18/17 02:57 Troponin I < 0.015 ng/ml (0-0.045) Laboratory results per my review. Medications Administered Medications (Trade) Dose Ordered Sig/Jimmy Route Start Time Stop Time Status Last Admin Dose Admin Sodium Chloride 1,000 ml @ 999 mls/hr Q1H1M IV 10/18/17 00:00 11/17/17 00:00 10/18/17 00:14 999 MLS/HR Acetaminophen (Tylenol Tab) 1,000 mg NOW STAT PO 10/17/17 23:54 10/17/17 23:55 DC 10/18/17 00:21 1,000 MG Sodium Chloride 1,000 ml @ 999 mls/hr Q1H1M STAT IV 10/18/17 00:24 10/18/17 01:24 DC 10/18/17 00:51 999 MLS/HR Ceftriaxone Sodium (Rocephin Inj) 1 gm NOW STAT IV 10/18/17 01:22 10/18/17 01:23 DC 10/18/17 01:58 1 GM Azithromycin (Zithromax Tab) 500 mg NOW ONCE PO 10/18/17 01:30 10/18/17 01:31 DC 10/18/17 01:58 500 MG Ketorolac Tromethamine (Toradol Inj) 30 mg NOW STAT IV 10/18/17 01:53 10/18/17 01:54 DC 10/18/17 02:02 30 MG Sodium Chloride 500 ml @ 999 mls/hr Q31M STAT IV 10/18/17 02:20 10/18/17 02:50 DC 10/18/17 02:20 999 MLS/HR Sodium Chloride 1,000 ml @ 125 mls/hr Q8H STAT IV 10/18/17 03:33 10/18/17 11:32 10/18/17 05:22 125 MLS/HR Ampicillin Sodium/ Sulbactam Sodium 3000 mg/Sodium Chloride 108 ml @ 200 mls/hr NOW STAT IV 10/18/17 05:33 10/18/17 06:05 DC 10/18/17 05:20 200 MLS/HR ECG Per My Interpretation Indication: chest pain Rate (beats per minute): 103 Rhythm: sinus tachycardia Findings: Q waves (in L3, V1, V2, and V3), ST depression (in L2, aVF, V4, V5, and V6), other (Normal axis. Normal intervals.) Comparison ECG Date: changed when compared to 07/20/2017 Change: Repeat ECG: Sinus Rhythm 94 bpm Findings: Normal axis. Normal intervals. TWI in L3, Q wave V1, V2, V3, previous ST depressions appear improved. ED Course 2338: The patient was evaluated in room C9. A complete history and physical exam was performed. 2354: Ordered Tylenol 1,000 mg PO 0000: Ordered Sodium Chloride 1,000 ml @ 999 mls/hr IV 0024: Ordered Sodium Chloride 1,000 ml @ 999 mls/hr IV 0122: Ordered Rocephin 1 gm IV 0130: Ordered Zithromax 500 mg PO 0140: I reassessed the patient at this time. She states her body aches have improved. 0153: Ordered Toradol 30 mg IV 0215: I reassessed the patient at this time. The patient was moved to room B9. She complained of chest pain. 0220: Ordered Sodium Chloride 500 ml @ 999 mls/hr IV 0328: I reassessed the patient at this time. She is still having chest pressure , though it has improved. Her HR is in the 90s and her oxygen saturation is 93%. 0333: Ordered Sodium Chloride 1000 ml @ 125 mls/hr IV 0523: I spoke with Dr. Leon, [facility] hospitalist. We discussed the patient' s case. The patient will be evaluated by the [facility] for further management. Medical Decision Differential diagnosis: Etiologies such as viral syndrome, otitis, pharyngitis, pneumonia, influenza, meningitis, urinary tract infection, sepsis, bacteremia, as well as others were entertained. Patient initially called 911 during she was having a medication reaction to the recent increase in her amitriptyline as directed by her neurologist. Patient had a fever here and given the abrupt onset of worsening tremors this evening, feel this was more likely rigors in the setting of fever and unknown infection. I felt on her chest x-ray patient likely had a left lower lobe pneumonia, while patient was being hydrated, given antibiotics, and treated for fever, begin the noticed the patient had slightly declining oxygen levels despite no increased work of breathing or worsening cough. Patient's blood pressure was mildly lower compared to initially, however she was still not hypotensive. Tachycardia improved and was likely secondary to dehydration as well as fevers. Patient's other labs are reassuring. Then while being treated, patient had an episode of significant chest pain. Patient's EKG was slightly abnormal, however initial troponin have been negative, repeat troponin was ordered as a precaution. Repeat EKG was then ordered to evaluate for any additional dynamic changes. Both of these were negative. Patient's EKG tonight is different compared to prior. Patient does have risk factors for ACS, however 2 troponins have been negative so far patient's pain is improved. It is more likely the patient's pain is secondary to her underlying pneumonia. However given concern for worsening hypoxia as well as atypical EKG and patient's prior history of blood clots, patient sent for a CAT scan of her chest. This revealed bilateral pneumonia, no PE, no other vascular abnormality, no pericardial effusion. Patient made aware of the results and I discussed with her my concerns given her evolving condition and CT findings. Patient was agreeable with plan for possible admission. I discussed the case with the [facility] for additional evaluation and treatment. Blood cultures are pending at this time. Patient hemodynamically stable, did not feel patient required ICU evaluation. Patient did have 30 ml/kg of IV fluids to do our high suspicion for sepsis when she first presented. Medication Reconcilliation Current Medication List: was personally reviewed by me Blood Pressure Screening Patient's blood pressure: Normal blood pressure Consults Time Called: 05 Consulting Physician: Dr. Leon [facility] Returned Call: [address] Leon, [facility]. We discussed the patient's case. The patient will be evaluated by the [facility] for further management. Impression Primary Impression: PNA (pneumonia) Additional Impressions: Hypoxia Sepsis Chest pain Occasional tremors Scribe Attestation The scribe's documentation has been prepared under my direction and personally reviewed by me in its entirety. I confirm that the note above accurately reflects all work, treatment, procedures, and medical decision making performed by me. Departure Information Dispostion Being Evaluated By Hospitalist Referrals Beth Wang M.D. (PCP) Patient Instructions My [facility] Problem Qualifiers Primary Impression: PNA (pneumonia) Pneumonia type: due to unspecified organism Laterality: bilateral Lung location: unspecified part of lung Qualified Codes: J18.9 - Pneumonia, unspecified organism Additional Impressions: Sepsis Sepsis type: sepsis due to unspecified organism Qualified Codes: A41.9 - Sepsis, unspecified organism Chest pain Chest pain type: unspecified Qualified Codes: R07.9 - Chest pain, unspecified
[2017-10-18 00:31] LABS: ALBUMIN 3.4 gm/dl (3.4-5.0); ALT/SGPT 40 U/L (12-78); AST/SGOT 31 U/L (15-37); BLOOD UREA NITROGEN 14 mg/dl (7-18); CALCIUM 8.7 mg/dl (8.5-10.1); CARBON DIOXIDE 23 mmol/L (21-32); CREATININE 0.98 mg/dl (0.60-1.20); GLUCOSE 130 mg/dl (70-99); POTASSIUM 3.6 mmol/L (3.5-5.1); PTT PATIENT 28.9 SECONDS (21.0-31.0); SODIUM 141 mmol/L (136-145)
[2017-10-18 00:42] LABS: ALKALINE PHOSPHATASE 102 U/L (45-117); TOTAL PROTEIN 7.4 gm/dl (6.4-8.2)
[2017-10-18 00:58] LABS: INFLUENZA B ANTIGEN Neg for Influ B (NEG)
[2017-10-18] MEDS ORDERED: CEFTRIAXONE SOD INJ 1 GM ADDVIAL IV STA (01:22)
[2017-10-18] MEDS ORDERED: AZITHROMYCIN 250 MG TAB PO ONE (01:30)
[2017-10-18] MEDS ORDERED: KETOROLAC TROMETHAMINE 30 MG/ML VIAL IV STA (01:53)
[2017-10-18] MEDS ORDERED: SODIUM CHLORIDE 0.9% 500ML 500 ML IV STA (02:20)
[2017-10-18] MEDS ORDERED: OPTIRAY 320 IV PRN (03:45)
[2017-10-18] MEDS ORDERED: ALBUT/IPRATROP 3MG/0.5MG NEB 3 ML VIAL INH PRN (05:30)
[2017-10-18] MEDS ORDERED: AMPICILLIN/SULBACTAM SOD INJ 3,000 MG in SODIUM CHLORIDE 0.9% 100ML 100 ML IV STA (05:33)
[2017-10-18] MEDS ORDERED: ALBUT/IPRATROP 3MG/0.5MG NEB 3 ML VIAL INH STA (05:53)
[2017-10-18] MEDS ORDERED: METHYLPREDNISOLONE IV 20 MG in SYRINGE 0 ML IV STA (05:54)
[2017-10-18] MEDS ORDERED: ACETAMINOPHEN 325 MG TAB PO PRN (06:30)
[2017-10-18] MEDS ORDERED: PROCHLORPERAZINE INJ 5 MG in SYRINGE 4 ML IV PRN (06:30)
[2017-10-18] MEDS ORDERED: HYDROCODONE/ACETAMIN 5/325MG TAB PO PRN (06:30)
[2017-10-18] MEDS ORDERED: LORAZEPAM 2 MG/ML 1 ML VIAL IV PRN (06:30)
[2017-10-18] MEDS ORDERED: KETOROLAC TROMETHAMINE 15 MG/ML VIAL IV. PRN (06:30)
[2017-10-18 06:35] VITALS: BP 106/70; PULSE 86; TEMP 36.5; O2SAT 99; Ht 157.5 cm; Wt 75.4 kg
--- NOTE | 2017-10-18 06:38 | DIAGNOSTIC IMAGING REPORT ---
CHEST ONE VIEW PORTABLE HISTORY: 67 years-old Female Sepsis acute sepsis COMPARISON: Chest radiograph 07/20/2017, CTA chest of same day TECHNIQUE: Portable AP view of the chest FINDINGS: Cardiac silhouette is within the upper limits of normal in size. There is no pneumothorax, or overt pulmonary edema. There are bibasilar alveolar opacities, left greater than right. Trace left pleural effusion. Bones of the chest appear grossly intact. IMPRESSION: Left greater then right bibasilar alveolar opacities are suspicious for pneumonia with trace left pleural effusion. The above report was generated using voice recognition software. It may contain grammatical, syntax or spelling errors. Electronically signed by: Merlin Dow M.D. 10/18/2017 6:37 AM Dictated Date/Time: 10/18/2017 6:35 AM
[2017-10-18] MEDS ORDERED: LACTATED RINGER'S 1000ML 1,000 ML IV ONE (07:00)
[2017-10-18 07:19] LABS: INFLUENZA A PCR Neg for Influ A (NEG); INFLUENZA B PCR Neg for Influ B (NEG)
--- NOTE | 2017-10-18 07:21 | DIAGNOSTIC IMAGING REPORT ---
(CHEST FOR PE) ANGIO WITH CT DOSE: 256.38 mGy.cm HISTORY: 67 years-old Female with . Presents with pneumonia, acute cough and shortness of breath TECHNIQUE: Multiple CTA images of the chest were obtained after the intravenous administration of 100 ml Optiray 320. Coronal and sagittal MIPS were obtained from the axial data set and were submitted for review. A dose lowering technique was utilized adhering to the principles of ALARA. COMPARISON: Chest radiograph of same day, CTA chest 07/22/2014 FINDINGS: CTA: Heart is mildly enlarged. The thoracic aorta is normal in both course and caliber without aneurysm or dissection. There is mild to moderate atherosclerosis of the aortic arch. The imaged great vessels appear patent. The left vertebral artery appears dominant. The pulmonary arterial tree is opacified to the level of the subsegmental branches and demonstrates no focal filling defects to suggest pulmonary thromboembolic disease. CT CHEST: Mildly heterogeneous appearance of the thyroid with 5 mm left thyroid nodule. Mildly prominent right hilar lymph node measures up to 9 mm in short axis. 9 mm left paratracheal lymph node is also seen and prominent hilar lymph nodes measure up to 8 mm in short axis. Trace left pleural effusion. No pneumothorax. There is mild intralobular septal thickening of the lung apices. Previously noted suspicious pulmonary nodule of the right upper lobe seen on the 07/22/2014 study is no longer identified. There are no suspicious pulmonary nodules or masses. Calcific granuloma of the right middle lobe. Dependent subsegmental right basilar atelectasis. Multifocal patchy groundglass and consolidative opacities involve the left lower lobe and to lesser extent the inferior segment lingula with associated multifocal mucosal secretions and bronchial wall thickening of the left lower lobe. 2.6 x 3.3 cm low attenuating ovoid lesion of the superior pole left kidney suggests renal cyst. No acute abnormality of the imaged upper abdomen. Soft tissues are unremarkable. Rest parenchyma appears within normal limits. The bones appear intact. Multilevel endplate spurring about the spine. IMPRESSION: 1. No acute aortic pathology or evidence of pulmonary thromboembolic disease. 2. Multifocal segmental consolidative and alveolar opacities of the left lower lobe with minimal subsegmental consolidative opacities of the inferior segment lingula are compatible with pneumonia. Moderate bronchial secretions of the left lower lobe. 3. Mildly prominent mediastinal and hilar lymph nodes are likely reactive. 4. Additional findings as above. The above report was generated using voice recognition software. It may contain grammatical, syntax or spelling errors. Electronically signed by: Merlin Dow M.D. 10/18/2017 7:20 AM Dictated Date/Time: 10/18/2017 7:12 AM
[2017-10-18] MEDS ORDERED: AMPICILLIN/SULBACTAM CONSULT ACTIVE PRN (09:15)
[2017-10-18] MEDS ORDERED: LORAZEPAM INJ 0.5 MG in SYRINGE 0.75 ML IV PRN (09:15)
[2017-10-18] MEDS: CLOPIDOGREL BISULFATE 75 MG TAB PO SCH (10:42)
[2017-10-18] MEDS: ATORVASTATIN 40 MG TAB PO SCH (10:42)
[2017-10-18] MEDS: FLUOXETINE HCL 10 MG CAP PO SCH (10:43)
[2017-10-18] MEDS: PANTOprazole SOD 40 MG TAB PO SCH (10:43)
[2017-10-18] MEDS: LOSARTAN POTASSIUM 50 MG TAB PO SCH (10:43)
[2017-10-18] MEDS: ASPIRIN 81 MG ECTAB PO SCH (10:43)
[2017-10-18] MEDS: ENOXAPARIN 30 MG/0.3 ML SYR SQ SCH (10:44)
[2017-10-18] MEDS: AMPICILLIN/SULBACTAM SOD INJ 3,000 MG in SODIUM CHLORIDE 0.9% 100ML 100 ML IV SCH ×2 (12:12→18:34)
--- NOTE | 2017-10-18 12:19 | HISTORY & PHYSICAL EXAMINATION ---
DATE OF ADMISSION: 10/18/2017 PRIMARY CARE PHYSICIAN: Dr. Wang CHIEF COMPLAINT: Shortness of breath, chills, and tremors. HISTORY OF PRESENT ILLNESS: History obtained from the patient and records. Medical history significant for history of CVA, migraine, hypertension, history of PE status post Lovenox injections. Recent confinement July 2017 for acute CVA. Since stroke, the patient had advised by neurologist to stop taking Imitrex for migraine. Recommendation was to gradually increase Amitriptyline dose for migraine prophylaxis. Patient noted body chills, tremors when she reached Amitriptyline dose of 30 m nightly. She was visiting family in [place], [place] last week when she developed nasal congestion, cough, later productive of yellow sputum, nausea, vomiting, chills. No chest pain, increasing shortness of breath. Exposed to sick kids as per patient. Brought to the Emergency Room. She received Ceftriaxone and Azithromycin for sepsis. O2 sats noted to be in the 80s at some point during ER stay. MEDICAL HISTORY: As above. SURGERIES: She has had total abdominal hysterectomy, bilateral salpingo-oophorectomy, knee replacement. HOME MEDICATIONS: Include Tylenol, amitriptyline, carbidopa, Dexilant, valium, Prozac, Vicodin, Toprol, ranitidine, tizanidine. FAMILY HISTORY: Hypertension, diabetes. PERSONAL AND SOCIAL HISTORY: Nonsmoker, no chronic intake of alcohol. 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 PHYSICAL EXAMINATION: VITAL SIGNS: Blood pressure was noted to be 103/49, pulse rate 105, respiratory rate 20, temperature 39.2; sats 97% on room air, later 88% on room air. GENERAL: Noted to be obese, minimal respiratory distress. SKIN: Normal color, warm. HEENT: [place] palpebral conjunctivae, no ptosis, dry mucosa, nasal cannula in place. NECK: Supple, nontender. LUNGS: Decreased breath sounds. No wheeze. HEART: Regular rate and rhythm, no murmur. ABDOMEN: Some distention, nontender. EXTREMITIES: Minimal LE edema, no tenderness, no gross deformities NEUROLOGIC: Coherent, no gross focality. LABORATORY DATA: Hemoglobin was noted to be 12.5, hematocrit 38.6, white blood cells 12 platelets noted to be 253. Sodium noted to be 141, potassium 3.6, chloride 107, CO2 23, BUN 40, creatinine 0.9, glucose 130. Lactic acid was noted to be initially 2.29. IMAGING DATA: CTA - initial read showed multilobar pneumonia ABG - pH 7.38 pCO2 36, pO2 94, 97% on 3 liters. EKG as per my interpretation, rate 105, tachycardia, low voltage, some ST depression on the inferior leads. ASSESSMENT: 1. Severe sepsis SIRS plus hypoxemia plus lactic acid elevation secondary to aspiration pneumonia. illness complicated by increased dose of home Amitriptyline for migraine prophylaxis as per patient 2. Hypertension. Stable 3. hx cerebrovascular accident. PLAN: GMF Supplement O2 Baseline ABG CS, Unasyn for aspiration pneumonia. Follow lactic acid, IV fluid Steroid for 1 dose for pneumonia causing hypoxemia Nebs stat, as needed Patient to maintain Amitriptyline at 20 mg hs. DVT prophylaxis Lovenox subQ. Full code. MTDD
--- NOTE | 2017-10-18 15:04 | Progress Note ---
Internal Med Progress Note Date of Service: Oct 18, 2017. Provider Documentation: SUBJECTIVE: The patient was seen and examined. She was admitted with chills and shakes that has been going on since the day before yesterday She has history of shaking episodes secondary to withdrawal from migraine medications. She has been feeling a lot better since admission without fever and/or chills. OBJECTIVE: Vital Signs-as noted below Exam: General-no apparent distress Eyes-normal ENT-normal Neck-supple Lungs-clear to auscultate on the right side has left basilar crackles Heart-regular, no murmur appreciated. Abdomen-benign, soft, nontender, no organomegaly and bowel sounds present Extremities-no edema Neuro-alert awake oriented 3 and no focal sensory and motor deficit appreciated Lab data as noted below. ASSESSMENT & PLAN: Severe sepsis Likely secondary to aspiration pneumonia. Tachycardia and high fever on admission Started on IV Unasyn and continue for now Clinically better Episodes of shaking, Received 1 dose of Solumedrol Has been under care of neurologist at [place]. Thought to be due to withdrawal from my migraine medication. Has been 1 amitriptyline and was advised to continue 20 mg daily. Further assessment of medication as per outpatient neurology Hypertension. Controlled Remote history of cerebrovascular accident. The patient feels illness, complicated by increased dose of amitriptyline for migraine prophylaxis. DVT prophylaxis subQ. Code Status Full code. Vital Signs: Date Time Temp Pulse Resp B/P (MAP) Pulse Ox O2 Delivery O2 Flow Rate FiO2 10/18/17 08:45 Nasal Cannula 2.0 10/18/17 06:35 36.5 86 20 106/70 99 Nasal Cannula 2.0 10/18/17 06:02 78 20 107/57 96 Nasal Cannula 2.0 10/18/17 04:36 96 Nasal Cannula 2.0 10/18/17 04:30 89 20 117/49 88 Room Air 10/18/17 03:36 102 10/18/17 02:39 105 20 103/49 91 Room Air 10/18/17 01:57 107 18 130/58 94 Room Air 10/18/17 00:22 37.8 107 18 153/75 94 Room Air 10/17/17 23:50 Room Air 10/17/17 23:35 102 10/17/17 23:33 39.2 104 18 139/79 97 Room Air Lab Results: Results Past 24 Hours Test 10/17/17 23:51 10/18/17 00:02 10/18/17 00:25 10/18/17 01:20 Range/Units Bedside Lactic Acid Venous 2.29 0.90-1.70 mmol/L White Blood Count 12.83 4.8-10.8 K/uL Red Blood Count 4.31 4.2-5.4 M/uL Hemoglobin 12.4 12.0-16.0 g/dL Hematocrit 36.6 37-47 % Mean Corpuscular Volume 84.9 80-100 fL Mean Corpuscular Hemoglobin 28.8 25-34 pg Mean Corpuscular Hemoglobin Concent 33.9 32-36 g/dl Platelet Count 253 130-400 K/uL Mean Platelet Volume 9.8 7.4-10.4 fL Neutrophils (%) (Auto) 86.9 % Lymphocytes (%) (Auto) 7.1 % Monocytes (%) (Auto) 5.1 % Eosinophils (%) (Auto) 0.4 % Basophils (%) (Auto) 0.2 % Neutrophils # (Auto) 11.15 1.4-6.5 K/uL Lymphocytes # (Auto) 0.91 1.2-3.4 K/uL Monocytes # (Auto) 0.66 0.11-0.59 K/uL Eosinophils # (Auto) 0.05 0-0.5 K/uL Basophils # (Auto) 0.02 0-0.2 K/uL RDW Standard Deviation 40.0 36.4-46.3 fL RDW Coefficient of Variation 12.9 11.5-14.5 % Immature Granulocyte % (Auto) 0.3 % Immature Granulocyte # (Auto) 0.04 0.00-0.02 K/uL Prothrombin Time 10.1 9.0-12.0 SECONDS Prothromb Time International Ratio 1.0 0.9-1.1 Activated Partial Thromboplast Time 28.9 21.0-31.0 SECONDS Partial Thromboplastin Ratio 1.1 Sodium Level 141 136-145 mmol/L Potassium Level 3.6 3.5-5.1 mmol/L Chloride Level 107 98-107 mmol/L Carbon Dioxide Level 23 21-32 mmol/L Anion Gap 11.0 3-11 mmol/L Blood Urea Nitrogen 14 7-18 mg/dl Creatinine 0.98 0.60-1.20 mg/dl Est Creatinine Clear Calc Drug Dose 49.8 ml/min Estimated GFR () 68.2 Estimated GFR (Non- 58.9 BUN/Creatinine Ratio 14.4 10-20 Random Glucose 130 70-99 mg/dl Calcium Level 8.7 8.5-10.1 mg/dl Magnesium Level 2.0 1.8-2.4 mg/dl Total Bilirubin 0.4 0.2-1 mg/dl Aspartate Amino Transf (AST/SGOT) 31 15-37 U/L Alanine Aminotransferase (ALT/SGPT) 40 12-78 U/L Alkaline Phosphatase 102 45-117 U/L Total Creatine Kinase 55 26-192 U/L Troponin I < 0.015 0-0.045 ng/ml Total Protein 7.4 6.4-8.2 gm/dl Albumin 3.4 3.4-5.0 gm/dl Globulin 4.0 2.5-4.0 gm/dl Albumin/Globulin Ratio 0.9 0.9-2 Procalcitonin < 0.05 0-0.5 ng/ml Thyroid Stimulating Hormone (TSH) 1.630 0.300-4.500 uIu/ml Monoscreen NEG NEG Influenza Type A (RT-PCR) Neg for Influ A NEG Influenza Type A Antigen Neg for Influ A NEG Influenza Type B Antigen Neg for Influ B NEG Influenza Type B (RT-PCR) Neg for Influ B NEG Urine Color YELLOW Urine Appearance CLOUDY CLEAR Urine pH 6.0 4.5-7.5 Urine Specific [place] 1.022 1.000-1.030 Urine Protein NEG NEG Urine Glucose (UA) NEG NEG Urine Ketones NEG NEG Urine Occult Blood NEG NEG Urine Nitrite NEG NEG Urine Bilirubin NEG NEG Urine Urobilinogen NEG NEG Urine Leukocyte Esterase MODERATE NEG Urine WBC (Auto) 5-10 0-5 /hpf Urine RBC (Auto) 10-30 0-4 /hpf Urine Hyaline Casts (Auto) 1-5 0-5 /lpf Urine Epithelial Cells (Auto) 20-30 0-5 /lpf Urine Bacteria (Auto) NEG NEG Test 10/18/17 02:57 10/18/17 05:49 Range/Units Troponin I < 0.015 0-0.045 ng/ml Arterial Blood pH 7.38 7.35-7.45 Arterial Blood Partial Pressure CO2 36 35-46 mmHg Arterial Blood Partial Pressure O2 94 80-95 mm/Hg Arterial Blood HCO3 21 19-24 mmol/L Arterial Blood Oxygen Saturation 97.0 90-95 % Arterial Blood Base Excess -3.8 -9-1.8 mEq/L Arterial Blood Gas Delivery 3L Cuco Test POS POS Lactic Acid Level 1.0 0.4-2.0 mmol/L Microbiology Results 10/18/17 Blood Culture, Received Pending 10/17/17 Blood Culture, Received Pending
[2017-10-18 15:14] VITALS: BP 129/74; PULSE 75; TEMP 36.7; O2SAT 94
[2017-10-18 16:00] VITALS: O2SAT 94
[2017-10-18] MEDS: RANITIDINE HCL 150 MG TAB PO SCH (21:06)
[2017-10-18] MEDS: AMITRIPTYLINE HCL 10 MG TAB PO SCH (21:07)
[2017-10-18] MEDS: CARBIDOPA/LEVODOPA 25/100MG TAB PO SCH (21:07)
[2017-10-18 21:10] VITALS: BP 149/75; PULSE 75
[2017-10-18] MEDS: METOPROLOL SUCC 25MG EXT REL TAB PO SCH (21:10)
[2017-10-18 23:13] VITALS: BP 133/73; PULSE 83; TEMP 36.6; O2SAT 94
[2017-10-19] VITALS: O2SAT 94
[2017-10-19] MEDS: AMPICILLIN/SULBACTAM SOD INJ 3,000 MG in SODIUM CHLORIDE 0.9% 100ML 100 ML IV SCH ×4 (00:07→18:30)
[2017-10-19] MEDS ORDERED: COUGH DROP (SUGAR FREE) LOZ 24 LOZ/1 BOX LOZ ONE (00:12)
[2017-10-19] MEDS: DIAZEPAM 5MG TAB PO PRN ×2 (00:14→21:38)
[2017-10-19 06:41] LABS: BASO % 0.2 %; BASO ABS # 0.02 K/uL (0-0.2); EOS % 0.4 %; EOS ABS # 0.04 K/uL (0-0.5); HEMATOCRIT 28.8 % (37-47); HEMOGLOBIN 9.6 g/dL (12.0-16.0); IG# 0.03 K/uL (0.00-0.02); LYMPH % 24.9 %; LYMPH ABS # 2.23 K/uL (1.2-3.4); MEAN CELL VOLUME 86.5 fL (80-100); MEAN CORPUSCULAR HEMOGLOBIN 28.8 pg (25-34); MEAN CORPUSCULAR HGB CONC 33.3 g/dl (32-36); MEAN PLATELET VOLUME 9.8 fL (7.4-10.4); MONO % 6.1 %; MONO ABS # 0.55 K/uL (0.11-0.59); NEUT % 68.1 %; PLATELET COUNT 193 K/uL (130-400); RED CELL DISTRIBUTION WIDTH CV 13.3 % (11.5-14.5); RED CELL DISTRIBUTION WIDTH SD 42.7 fL (36.4-46.3); WHITE BLOOD COUNT 8.97 K/uL (4.8-10.8)
[2017-10-19 07:21] LABS: CREATININE 0.73 mg/dl (0.60-1.20)
[2017-10-19 08:08] VITALS: BP 118/70; PULSE 60; TEMP 36.3; O2SAT 95
[2017-10-19] MEDS: FLUOXETINE HCL 10 MG CAP PO SCH (09:01)
[2017-10-19] MEDS: CLOPIDOGREL BISULFATE 75 MG TAB PO SCH (09:01)
[2017-10-19] MEDS: ATORVASTATIN 40 MG TAB PO SCH (09:01)
[2017-10-19] MEDS: LOSARTAN POTASSIUM 50 MG TAB PO SCH (09:01)
[2017-10-19] MEDS: ENOXAPARIN 30 MG/0.3 ML SYR SQ SCH (09:02)
[2017-10-19] MEDS: PANTOprazole SOD 40 MG TAB PO SCH (09:02)
[2017-10-19] MEDS: ASPIRIN 81 MG ECTAB PO SCH (09:02)
[2017-10-19] MEDS ORDERED: HYDROCODONE/HOMATROPINE SYRUP 5MG/1.5MG 5ML UDP PO PRN (11:30)
--- NOTE | 2017-10-19 14:51 | Progress Note ---
Internal Med Progress Note Date of Service: Oct 19, 2017. Provider Documentation: SUBJECTIVE: The patient was seen and examined. She was admitted with chills and shakes that has been going on since the day before yesterday H/O shaking episodes secondary to withdrawal from migraine medications. She has been feeling a lot better since admission without fever and/or chills. Has cough but otherwise stable OBJECTIVE: Vital Signs-as noted below Exam: General-no apparent distress Eyes-normal ENT-normal Neck-supple Lungs-clear to auscultate on the right side has left basilar crackles Left basilar crackles is better Heart-regular, no murmur appreciated. Abdomen-benign, soft, nontender, no organomegaly and bowel sounds present Extremities-no edema Neuro-alert awake oriented 3 and no focal sensory and motor deficit appreciated Lab data as noted below. ASSESSMENT & PLAN: Severe sepsis Likely secondary to aspiration pneumonia.LLL Tachycardia and high fever on admission Started on IV Unasyn and continue for now Clinically better Check CBC,PRP tomorrow Repeat CXR tomorrow Likely discharge tomorrow Episodes of shaking, Received 1 dose of Solumedrol Has been under care of neurologist at [place]. Thought to be due to withdrawal from my migraine medication. Has been 1 amitriptyline and was advised to continue 20 mg daily. Further assessment of medication as per outpatient neurology Hypertension. Controlled Remote history of cerebrovascular accident. The patient feels illness, complicated by increased dose of amitriptyline for migraine prophylaxis. DVT prophylaxis subQ. Code Status Full code. Vital Signs: Date Time Temp Pulse Resp B/P (MAP) Pulse Ox O2 Delivery O2 Flow Rate FiO2 10/19/17 08:35 Room Air 10/19/17 08:08 36.3 60 18 118/70 (86) 95 Room Air 10/19/17 00:00 94 Room Air 2.0 10/18/17 23:13 36.6 83 18 133/73 (93) 94 Room Air 10/18/17 21:10 75 149/75 (99) Room Air 10/18/17 16:00 94 Room Air 10/18/17 15:14 36.7 75 18 129/74 (92) 94 Room Air Lab Results: Results Past 24 Hours Test 10/18/17 21:01 10/19/17 06:16 Range/Units Procalcitonin 0.57 0-0.5 ng/ml White Blood Count 8.97 4.8-10.8 K/uL Red Blood Count 3.33 4.2-5.4 M/uL Hemoglobin 9.6 12.0-16.0 g/dL Hematocrit 28.8 37-47 % Mean Corpuscular Volume 86.5 80-100 fL Mean Corpuscular Hemoglobin 28.8 25-34 pg Mean Corpuscular Hemoglobin Concent 33.3 32-36 g/dl Platelet Count 193 130-400 K/uL Mean Platelet Volume 9.8 7.4-10.4 fL Neutrophils (%) (Auto) 68.1 % Lymphocytes (%) (Auto) 24.9 % Monocytes (%) (Auto) 6.1 % Eosinophils (%) (Auto) 0.4 % Basophils (%) (Auto) 0.2 % Neutrophils # (Auto) 6.10 1.4-6.5 K/uL Lymphocytes # (Auto) 2.23 1.2-3.4 K/uL Monocytes # (Auto) 0.55 0.11-0.59 K/uL Eosinophils # (Auto) 0.04 0-0.5 K/uL Basophils # (Auto) 0.02 0-0.2 K/uL RDW Standard Deviation 42.7 36.4-46.3 fL RDW Coefficient of Variation 13.3 11.5-14.5 % Immature Granulocyte % (Auto) 0.3 % Immature Granulocyte # (Auto) 0.03 0.00-0.02 K/uL Creatinine 0.73 0.60-1.20 mg/dl Est Creatinine Clear Calc Drug Dose 69.2 ml/min Estimated GFR () 97.4 Estimated GFR (Non- 84.0
[2017-10-19 15:06] VITALS: BP 146/78; PULSE 72; TEMP 36.8; O2SAT 96
[2017-10-19 16:00] VITALS: O2SAT 96
[2017-10-19 21:27] VITALS: BP 167/91; PULSE 79; O2SAT 98
[2017-10-19] MEDS: CARBIDOPA/LEVODOPA 25/100MG TAB PO SCH (21:29)
[2017-10-19] MEDS: AMITRIPTYLINE HCL 10 MG TAB PO SCH (21:30)
[2017-10-19] MEDS: METOPROLOL SUCC 25MG EXT REL TAB PO SCH (21:31)
[2017-10-19] MEDS: RANITIDINE HCL 150 MG TAB PO SCH (21:31)
[2017-10-19] MEDS: BENZONATATE 100MG CAP PO PRN (21:32)
[2017-10-19 23:12] VITALS: BP 134/71; PULSE 83; TEMP 36.6; O2SAT 93
[2017-10-20] MEDS: AMPICILLIN/SULBACTAM SOD INJ 3,000 MG in SODIUM CHLORIDE 0.9% 100ML 100 ML IV SCH ×2 (00:04→05:44)
[2017-10-20 07:23] LABS: CALCIUM 8.2 mg/dl (8.5-10.1); CREATININE 0.81 mg/dl (0.60-1.20); POTASSIUM 3.6 mmol/L (3.5-5.1)
[2017-10-20 07:51] VITALS: BP 128/76; PULSE 70; TEMP 36.7; O2SAT 96
[2017-10-20 08:00] VITALS: O2SAT 96
[2017-10-20] MEDS: ATORVASTATIN 40 MG TAB PO SCH (08:23)
[2017-10-20] MEDS: LOSARTAN POTASSIUM 50 MG TAB PO SCH (08:23)
[2017-10-20] MEDS: CLOPIDOGREL BISULFATE 75 MG TAB PO SCH (08:23)
[2017-10-20] MEDS: ASPIRIN 81 MG ECTAB PO SCH (08:23)
[2017-10-20] MEDS: PANTOprazole SOD 40 MG TAB PO SCH (08:23)
[2017-10-20] MEDS: FLUOXETINE HCL 10 MG CAP PO SCH (08:23)
[2017-10-20] MEDS: ENOXAPARIN 30 MG/0.3 ML SYR SQ SCH (08:24)
--- NOTE | 2017-10-20 08:58 | DIAGNOSTIC IMAGING REPORT ---
CHEST 2 VIEWS ROUTINE HISTORY: pneumonia COMPARISON: Chest and chest CTA 10/18/2017. FINDINGS: No pneumothorax. The heart is normal in size. The upper lung zones are clear. Trace bilateral pleural effusions. Left basilar airspace is again noted. IMPRESSION: 1. Persistent left basilar airspace opacity consistent with a pneumonia. 2. Trace bilateral pleural effusions. Electronically signed by: Jerome Cary M.D. 10/20/2017 8:57 AM Dictated Date/Time: 10/20/2017 8:55 AM
[2017-10-20] MEDS: BENZONATATE 100MG CAP PO PRN (09:04)
--- NOTE | 2017-10-20 10:55 | Progress Note ---
Internal Med Progress Note Date of Service: Oct 20, 2017. Provider Documentation: SUBJECTIVE: The patient was seen and examined. She was admitted with chills and shakes that has been going on since the day before yesterday H/O shaking episodes secondary to withdrawal from migraine medications. 10/20:no more shaking Has cough ,controlled with Tessalon Lakia Ambulating without any difficulty OBJECTIVE: Vital Signs-as noted below Exam: General-no apparent distress Eyes-normal ENT-normal Neck-supple Lungs-clear to auscultate on the right side has left basilar crackles Left basilar bronchial breath osund Heart-regular, no murmur appreciated. Abdomen-benign, soft, nontender, no organomegaly and bowel sounds present Extremities-no edema Neuro-alert awake oriented 3 and no focal sensory and motor deficit appreciated Lab data as noted below. ASSESSMENT & PLAN: Severe sepsis Likely secondary to aspiration pneumonia.LLL Tachycardia and high fever on admission Started on IV Unasyn and continue for now Clinically better Check CBC,PRP tomorrow Repeat CXR tomorrow -LLL pneumonia Will change antibiotic to Oral Augmentin Discharge home today Episodes of shaking, Received 1 dose of Solumedrol Has been under care of neurologist at [place]. Thought to be due to withdrawal from my migraine medication. Has been on amitriptyline and was advised to continue 20 mg daily. Further assessment of medication as per outpatient neurology No More episodes Hypertension. Controlled Remote history of cerebrovascular accident. The patient feels illness, complicated by increased dose of amitriptyline for migraine prophylaxis. DVT prophylaxis subQ. Code Status Full code. Discharge home today -follow up with Dr Wang Vital Signs: Date Time Temp Pulse Resp B/P (MAP) Pulse Ox O2 Delivery O2 Flow Rate FiO2 10/20/17 08:00 96 Room Air 10/20/17 07:51 36.7 70 18 128/76 (93) 96 Room Air 10/20/17 00:10 Room Air 10/19/17 23:12 36.6 83 19 134/71 (92) 93 Room Air 10/19/17 21:27 79 16 167/91 (116) 98 Room Air 10/19/17 16:00 96 Room Air 10/19/17 15:06 36.8 72 18 146/78 (100) 96 Room Air Lab Results: Results Past 24 Hours Test 10/20/17 06:07 Range/Units Sodium Level 142 136-145 mmol/L Potassium Level 3.6 3.5-5.1 mmol/L Chloride Level 109 98-107 mmol/L Carbon Dioxide Level 25 21-32 mmol/L Anion Gap 8.0 3-11 mmol/L Blood Urea Nitrogen 15 7-18 mg/dl Creatinine 0.81 0.60-1.20 mg/dl Est Creatinine Clear Calc Drug Dose 62.3 ml/min Estimated GFR () 85.9 Estimated GFR (Non- 74.1 BUN/Creatinine Ratio 18.0 10-20 Random Glucose 81 70-99 mg/dl Calcium Level 8.2 8.5-10.1 mg/dl
[2017-10-20] MEDS ORDERED: AMOXICILLIN/CLAVULANATE TAB 875 MG TAB PO ONE (11:00)
[2017-10-20] MEDS ORDERED: BENZ100C7 PO (12:53)
[2017-10-20] MEDS ORDERED: LCTX PO (12:53)
[2017-10-20] MEDS ORDERED: AMOX1TAB43 PO (12:53)
--- NOTE | 2017-10-20 12:56 | Discharge Instructions ---
Discharge Instructions Date of Service Oct 20, 2017. Admission Reason for Admission: Respiratory Failure, Acute Discharge Discharge Diagnosis / Problem: Left Lower Lobe Pneumonia,Likely due to Aspiration Discharge Goals Goal(s): Prevent Disease Progression Activity Recommendations Activity Limitations: resume your previous activity . Instructions / Follow-Up Instructions / Follow-Up Dr Wang in 1 week-her office will call.Keep appointment with your Neurologist Current Hospital Diet Patient's current hospital diet: AHA Diet (Heart Healthy) Discharge Diet Recommended Diet: AHA Diet (Heart Healthy) Pending Studies Studies pending at discharge: no Laboratory Results Hemoglobin A1c Test 07/22/17 07:53 Range/Units Estimated Average Glucose 117 mg/dl Hemoglobin A1c 5.7 H 4.5-5.6 % Medical Emergencies . Who to Call and When: Medical Emergencies: If at any time you feel your situation is an emergency, please call 911 immediately. . Non-Emergent Contact Non-Emergency issues call your: Primary Care Provider . Past History Medical & Surgical History: (1) PNA (pneumonia) (2) Hypertension (3) Dyslipidemia (4) History of squamous cell carcinoma of skin (5) Respiratory failure, acute (6) Acute CVA (cerebrovascular accident) (7) Hypoxia (8) Total knee replacement status (9) Status post SAMREEN-BSO (10) Sepsis . "Provider Documentation" section prepared by Rula Louis. .
[2017-10-20 13:55] VITALS: BP 128/76; PULSE 70; TEMP 36.7; O2SAT 96
[2017-10-20] MEDS ORDERED: AMOXICILLIN/CLAVULANATE TAB 875 MG TAB PO SCH (17:00)
--- NOTE | 2017-10-25 10:03 | Discharge Summary ---
Discharge Summary Date of Service Oct 25, 2017. Discharge Summary Admission Date: Oct 18, 2017 at 05:36 Discharge Date: Oct 20, 2017 Discharge Disposition: Home Principal Diagnosis: Left Lower Lobe Pneumonia,Likely due to Aspiration Medication Reconciliation New Medications: Lactobacillus Acidophilus (Lactinex) Tab 2 TAB PO BID, #30 TAB Amoxicillin & Pot Clavulanate (Amoxicillin/Clavulanate P) 1 Tab Tab 875 MG PO BIDM for 7 Days, #14 TAB Benzonatate (Benzonatate) 100 Mg Cap 100 MG PO Q8H PRN for Cough for 10 Days, #30 CAP Continued Medications: Acetaminophen (Tylenol) 500 Mg Tab 1000 MG PO Q8H PRN for Pain, TAB Amitriptyline HCl (Amitriptyline HCl) 10 Mg Tab 20 MG PO HS Aspirin (Aspirin EC Low Dose) 81 Mg Ectab 81 MG PO QAM for 30 Days, #30 TABS Atorvastatin (Lipitor) 40 Mg Tab 40 MG PO QAM for 30 Days, #30 TAB Carbidopa/Levodopa (Sinemet 25MG/100MG) Unknown Strength Tab 0.5 TAB PO QPM, TAB Clopidogrel Bisulfate (Clopidogrel) 75 Mg Tab 75 MG PO QAM for 30 Days, #30 TAB Dexlansoprazole (Dexilant) 60 Mg Cap 60 MG PO DAILY Diazepam (Valium) 5 Mg Tab 5 MG PO Q6 PRN for Headache max 2/day Diazepam (Valium) 10 Mg Tab 10 MG PO QPM, TAB DO NOT DRIVE WITH MEDICATION Fluoxetine (Prozac) 10 Mg Cap 10 MG PO QAM, CAP Hydrochlorothiazide (Hydrochlorothiazide) 12.5 Mg Tab 12.5 MG PO 3XWK for 90 Days, TAB 3 Refills TAKE 12.5MG 3 TIMES WEEKLY ON TUESDAY, TUESDAY, TUESDAY Hydrocodone/Acetaminophen 5MG/325MG ([place] 5MG/325MG) Tab 1 TABLET PO TID PRN for Pain Losartan Potassium (Cozaar) 50 Mg Tab 50 MG PO QAM, TAB Metoprolol Succinate (Toprol Xl) 25 Mg Tab 25 MG PO QPM, #30 TAB Ranitidine HCl (Ranitidine 75) 75 Mg Tab 75 MG PO HS Tizanidine Hcl (Tizanidine Hcl) 2 Mg Cap 2 MG PO HS Admission Information HPI (per Admitting provider): DATE OF ADMISSION: 10/18/2017 PRIMARY CARE PHYSICIAN: Dr. Wang CHIEF COMPLAINT: Shortness of breath, chills, and tremors. HISTORY OF PRESENT ILLNESS: History obtained from the patient and records. Medical history significant for history of CVA, migraine, hypertension, history of PE status post Lovenox injections. Recent confinement July 2017 for acute CVA. Since stroke, the patient had advised by neurologist to stop taking Imitrex for migraine. Recommendation was to gradually increase Amitriptyline dose for migraine prophylaxis. Patient noted body chills, tremors when she reached Amitriptyline dose of 30 m nightly. She was visiting family in [place], [place] last week when she developed nasal congestion, cough, later productive of yellow sputum, nausea, vomiting, chills. No chest pain, increasing shortness of breath. Exposed to sick kids as per patient. Brought to the Emergency Room. She received Ceftriaxone and Azithromycin for sepsis. O2 sats noted to be in the 80s at some point during ER stay. MEDICAL HISTORY: As above. SURGERIES: She has had total abdominal hysterectomy, bilateral salpingo-oophorectomy, knee replacement. HOME MEDICATIONS: Include Tylenol, amitriptyline, carbidopa, Dexilant, valium, Prozac, Vicodin, Toprol, ranitidine, tizanidine. FAMILY HISTORY: Hypertension, diabetes. PERSONAL AND SOCIAL HISTORY: Nonsmoker, no chronic intake of alcohol. 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 PHYSICAL EXAMINATION: VITAL SIGNS: Blood pressure was noted to be 103/49, pulse rate 105, respiratory rate 20, temperature 39.2; sats 97% on room air, later 88% on room air. GENERAL: Noted to be obese, minimal respiratory distress. SKIN: Normal color, warm. HEENT: [place] palpebral conjunctivae, no ptosis, dry mucosa, nasal cannula in place. NECK: Supple, nontender. LUNGS: Decreased breath sounds. No wheeze. HEART: Regular rate and rhythm, no murmur. ABDOMEN: Some distention, nontender. EXTREMITIES: Minimal LE edema, no tenderness, no gross deformities NEUROLOGIC: Coherent, no gross focality. LABORATORY DATA: Hemoglobin was noted to be 12.5, hematocrit 38.6, white blood cells 12 platelets noted to be 253. Sodium noted to be 141, potassium 3.6, chloride 107, CO2 23, BUN 40, creatinine 0.9, glucose 130. Lactic acid was noted to be initially 2.29. IMAGING DATA: CTA - initial read showed multilobar pneumonia ABG - pH 7.38 pCO2 36, pO2 94, 97% on 3 liters. EKG as per my interpretation, rate 105, tachycardia, low voltage, some ST depression on the inferior leads. ASSESSMENT: 1. Severe sepsis SIRS plus hypoxemia plus lactic acid elevation secondary to aspiration pneumonia. illness complicated by increased dose of home Amitriptyline for migraine prophylaxis as per patient 2. Hypertension. Stable 3. hx cerebrovascular accident. PLAN: GMF Supplement O2 Baseline ABG CS, Unasyn for aspiration pneumonia. Follow lactic acid, IV fluid Steroid for 1 dose for pneumonia causing hypoxemia Nebs stat, as needed Patient to maintain Amitriptyline at 20 mg hs. DVT prophylaxis Lovenox subQ. Full code. Hospital Course Severe sepsis Likely secondary to aspiration pneumonia.LLL Tachycardia and high fever on admission Started on IV Unasyn and continue for now Clinically better Check CBC,PRP tomorrow Repeat CXR tomorrow -LLL pneumonia Will change antibiotic to Oral Augmentin Discharge home today Episodes of shaking, Received 1 dose of Solumedrol Has been under care of neurologist at [place]. Thought to be due to withdrawal from my migraine medication. Has been on amitriptyline and was advised to continue 20 mg daily. Further assessment of medication as per outpatient neurology No More episodes Hypertension. Controlled Remote history of cerebrovascular accident. The patient feels illness, complicated by increased dose of amitriptyline for migraine prophylaxis. DVT prophylaxis subQ. Code Status Full code. Discharge home today -follow up with Dr Wang Total time spent on discharge = 35 minutes This includes examination of the patient, discharge planning, medication reconciliation, and communication with other providers. Discharge Instructions Date of Service Oct 20, 2017. Admission Reason for Admission: Respiratory Failure, Acute Discharge Discharge Diagnosis / Problem: Left Lower Lobe Pneumonia,Likely due to Aspiration Discharge Goals Goal(s): Prevent Disease Progression Activity Recommendations Activity Limitations: resume your previous activity . Instructions / Follow-Up Instructions / Follow-Up Dr Wang in 1 week-her office will call.Keep appointment with your Neurologist Current Hospital Diet Patient's current hospital diet: AHA Diet (Heart Healthy) Discharge Diet Recommended Diet: AHA Diet (Heart Healthy) Pending Studies Studies pending at discharge: no Laboratory Results Hemoglobin A1c Test 07/22/17 07:53 Range/Units Estimated Average Glucose 117 mg/dl Hemoglobin A1c 5.7 H 4.5-5.6 % Medical Emergencies . Who to Call and When: Medical Emergencies: If at any time you feel your situation is an emergency, please call 911 immediately. . Non-Emergent Contact Non-Emergency issues call your: Primary Care Provider . Past History Medical & Surgical History: (1) PNA (pneumonia) (2) Hypertension (3) Dyslipidemia (4) History of squamous cell carcinoma of skin (5) Respiratory failure, acute (6) Acute CVA (cerebrovascular accident) (7) Hypoxia (8) Total knee replacement status (9) Status post SAMREEN-BSO (10) Sepsis . "Provider Documentation" section prepared by Rula Louis. . <Electronically signed by Rula Louis M.D.> Signed: 10/20/17 4028 Additional Copies To Beth Wang M.D.
== END 2017-10-20 15:15 | disposition home or self-care (01) | DRG 871 ==
LOC: EDBD 23:27 → C.EDC 23:31 → C.4E 10-18 05:36 → ENRESERV 10-18 05:58 → CANRESERV 10-18 05:58 → ENRESERV 10-18 06:01
PROVIDERS: ADMIT Internal Medicine; ATTEND Internal Medicine
DX: A41.9 Sepsis, unspecified organism (principal); J69.0 Pneumonitis due to inhalation of food and vomit; R09.02 Hypoxemia; R25.1 Tremor, unspecified; T43.015A Adverse effect of tricyclic antidepressants, initial encounter; G43.909 Migraine, unspecified, not intractable, without status migrainosus; I10 Essential (primary) hypertension; E78.5 Hyperlipidemia, unspecified; K21.9 Gastro-esophageal reflux disease without esophagitis; Z51.81 Encounter for therapeutic drug level monitoring; Z79.899 Other long term (current) drug therapy; Z79.82 Long term (current) use of aspirin; Z79.02 Long term (current) use of antithrombotics/antiplatelets; Z86.73 Personal history of transient ischemic attack (TIA), and cerebral infarction without residual deficits; Z86.711 Personal history of pulmonary embolism; Z85.828 Personal history of other malignant neoplasm of skin; Z88.8 Allergy status to other drugs, medicaments and biological substances; Z91.048 Other nonmedicinal substance allergy status

== ENCOUNTER → 2018-03-15 | Outpatient (CLI) | payer OTHER ==
[~2018-03-15] MED LIST changes: -AMIT10TA6 PO; +AMOX1TAB43 PO; +AMT10 PO; -ASPEC81 PO; +ASPI-320 PO; +BENZ100C7 PO; +LCTX PO; -LOSA1TAB38 PO; +LOSA50TA6 PO
== END | disposition home or self-care (01) ==
LOC: C.LABPBG 14:31
PROVIDERS: ATTEND Internal Medicine Endocrinology, Diabetes & Metabolism
DX: E04.2 Nontoxic multinodular goiter (principal)

== ENCOUNTER 2023-10-11 01:04 | Observation (INO) ==
[2023-10-11] MEDS: KETOROLAC TROMETHAMINE 15 MG/ML VIAL IV STA (02:26)
[2023-10-11] MEDS: HYDROcodone/HOMATROPINE SYRUP 5MG/1.5MG 5ML UDP PO STA (02:26)
[2023-10-11 02:31] LABS: Adenovirus PCR Not Detected (NotDetected); Bordetella parapertussis PCR Not Detected (NotDetected); Bordetella pertussis PCR Not Detected (NotDetected); Chlamydia pneumoniae PCR Not Detected (NotDetected); Coronavirus 229E PCR Not Detected (NotDetected); Coronavirus CoV-2 (COVID19)PCR Not Detected (NotDetected); Coronavirus HKU1 PCR Not Detected (NotDetected); Coronavirus NL63 PCR Not Detected (NotDetected); Coronavirus OC43PCR Not Detected (NotDetected); Human Metapneumovirus PCR Not Detected (NotDetected); Influenza A PCR Not Detected (NotDetected); Influenza B PCR Not Detected (NotDetected); Mycoplasma pneumoniae PCR Not Detected (NotDetected); Parainfluenza Virus 1 PCR Not Detected (NotDetected); Parainfluenza Virus 2 PCR Not Detected (NotDetected); Parainfluenza Virus 3 PCR Not Detected (NotDetected); Parainfluenza Virus 4 PCR Not Detected (NotDetected); Respiratory Syncytial VirusPCR Not Detected (NotDetected); Rhinovirus/Enterovirus PCR Not Detected (NotDetected)
[2023-10-11 03:01] LABS: Basophils # (auto) 0.06 K/uL (0.00-0.20); Basophils % (auto) 0.8 %; Eosinophils # (auto) 0.24 K/uL (0.00-0.50); Eosinophils % (auto) 3.4 %; Hematocrit (blood only) 31.9 % (37.0-47.0); Hemoglobin 10.3 g/dl (12.0-16.0); Immature Granulocytes # (auto) 0.03 K/uL (0.01-0.20); Immature Granulocytes % (auto) 0.4 %; Lymphocytes # (auto) 2.16 K/uL (1.20-3.40); Lymphocytes % (auto) 30.2 %; Mean Corpuscular Hemoglobin 27.4 pg (25.0-34.0); Mean Corpuscular Hgb Conc 32.3 g/dL (32.0-36.0); Mean Corpuscular Volume 84.8 fL (80.0-100.0); Mean Platelet Volume 10.9 fL (9.4-12.4); Monocytes # (auto) 0.76 K/uL (0.11-0.59); Monocytes % (auto) 10.6 %; Neutrophils % (auto) 54.6 %; Platelet Count 205 K/uL (130-400); RDW Coefficient of Variation 14.4 % (11.5-14.5); RDW Standard Deviation 44.1 fL (36.4-46.3); Red Blood Count 3.76 M/uL (4.20-5.40); White Blood Count 7.15 K/ul (4.8-10.8)
[2023-10-11 03:10] LABS: Alanine Aminotransferase 17 U/L (7-52); Albumin Globulin Ratio 1.5 (0.9-2); Albumin Level 3.7 gm/dl (3.4-5.0); Alkaline Phosphatase 77 U/L (34-104); Anion Gap 7 (3-11); BUN Creatinine Ratio 23.5 (10-20); Bilirubin,Total 0.4 mg/dl (0.2-1.0); Blood Urea Nitrogen 20 mg/dl (6-23); Calcium 8.5 mg/dl (8.6-10.3); Carbon Dioxide 24 mmol/L (21-32); Chloride 105 mmol/L (98-107); Creatinine Clr Calc Pharmacy 57.7 ml/min; Est GFR (African American) 77.7 ml/min; Globulin 2.5 gm/dl (2.5-4.0); Glucose 119 mg/dl (70-99(Fasting)); Lipase 24 U/L (11-82); Sodium 136 mmol/L (136-145); Total Protein 6.2 gm/dl (6.0-8.3); Troponin I High Sensitivity 4.3 pg/ml (0-14)
[2023-10-11] MEDS: OPTIRAY 320 100ml IV ONE (03:44)
[2023-10-11 04:24] LABS: Potassium 4.1 mmol/L (3.5-5.1)
--- NOTE | 2023-10-11 05:26 | Emergency Department Note ---
Impression & Plan Hypoxia, Pneumonia of both upper lobes Admit to the [facility] ED Provider Note NAME: NICOLAS MELGAR AGE: 73 SEX: Female INFORMANT: Patient ED PROVIDER(S): Jennifer Tran DO CHIEF COMPLAINT: Cough and sore throat PLAN: Disposition: Admit to the [facility] MEDICAL DECISION MAKING: This is a 73-year-old female patient who presents to the emergency department with cough, congestion and sore throat over the past 6 days. The cough became unbearable tonight because it would not stop. The patient has a history of pneumonia and states this feels the same way. Patient also describes having some chest pressure. Unfortunately, the patient's a couple of days ago and the service was today. She wanted to wait to seek treatment until after that was over. On presentation to the ER, the patient's O2 saturations were less than 90. She was placed on supplemental oxygen. Laboratory studies revealed no leukocytosis. The patient is anemic with a hemoglobin of 10.3. Glucose is 119. Renal function was normal. Electrolytes were normal. Upper respiratory bio fire test was negative. Troponin was normal. Chest x-ray revealed fullness in the right hilar region and right upper lobe. The patient went on to have a CT scan of the chest because of the hypoxia and chest x-ray findings. This revealed bilateral upper lobe pneumonia. Patient was treated with a dose of IV Rocephin. Care/management discussed with: manager of data and [facility] Triage Nursing notes: reviewed and agree with them. Vital Signs: reviewed and remarkable for bradycardia and hypoxia Differential Diagnosis: Pneumonia, bronchitis, URI, viral illness, NSTEMI Diagnostics, independently interpreted by me: ECG: Normal sinus rhythm at a rate of [address] segment elevation or signs of ischemia. There is no ectopy. Cardiac Monitoring: Sinus bradycardia at 58 Imaging studies: Chest x-ray: As per my independent interpretation-fullness in the right perihilar region and right upper lobe CT scan of the chest: As per stat rad HPI: 73 year old Female arrives for evaluation of cough and congestion; sore throat. Patient describes having significant sore throat and cough over the past 6 days. Tonight she noticed significant congestion and runny nose and the cough would not stop. Patient states that her recently and they had the service today. She stated she went to get that out of the way before she took care of herself. She also noticed some chest pressure that is worrisome to her. PAST MEDICAL HISTORY: Pneumonia, GERD, hypertension, dyslipidemia, SOCIAL HISTORY: Patient is recently , HOME MEDICATIONS: See list ALLERGIES: See list VITALS: See Below PHYSICAL EXAMINATION: HEENT: Head - normocephalic and atraumatic. Pupils are equal, round, and reactive to light. Extraocular eye muscles are intact, and sclera are anicteric. Nose - moist nasal mucosa without discharge. Mouth - moist buccal mucosa. Oropharynx is nonerythematous and there is no tonsillar exudate or edema noted. Neck: Supple; no JVD, nuchal rigidity, cervical lymphadenopathy, or auscultated bruits. Heart: Regular rate and rhythm. There is a normal S1 and S2 with no murmurs, clicks, or gallops appreciated. Lungs: Clear to auscultation bilaterally with no wheezes, rales, or rhonchi. Abdomen: Soft, completely nontender, nondistended, with good bowel sounds. There are no palpable pulsatile masses or hepatosplenomegaly. There is no guarding, rigidity, or rebound noted. Extremities: No evidence of cyanosis, clubbing, or edema. There are easily palpable peripheral pulses. Skin: warm and dry with good turgor and no rashes. Emergency department treatment: awake overnight monitor, supplemental oxygen, oral hycodan, IV Rocephin Emergency department course: The patient was evaluated in room B-9. A complete history and physical was performed. She was placed on supplemental oxygen because she was hypoxic. A twelve-lead EKG was obtained. An order was placed for continuous cardiac monitoring. The patient was in a sinus bradycardia at a rate of 58. Patient was given an oral dose of Hycodan. She had a portable chest x-ray as described above. The patient went on to CT scan of the chest. The Hycodan did help with the cough. CT scan revealed evidence of bilateral upper lobe pneumonia. The patient was given a dose of IV Rocephin. I discussed the case with the [facility] Hospitalist. The patient continued to require 2-4 L of oxygen to maintain O2 saturations greater than 90%. I have personally spent greater than 40 minutes of critical care time in the direct management of this patient. This includes bedside care, interpretation of diagnostic studies, and testing, discussion with consultants, patient, and family members, and other required patient management activities. This 40minutes is in excess of all separately billable procedures. Past Med/Surg History Social History Smoking Status: Never smoker Hx Alcohol Use: No Preferred Language: [place] Communication Ability: Effective Current Living Situation: Alone Feels Safe at Home: Yes Assistive Devices: Glasses Allergies Allergies Allergy/AdvReac Type Severity Reaction Status Date / Time Penicillins Allergy Intermediate ITCHY RASH Verified 10/11/23 02:51 adhesive Allergy Mild REDNESS Verified 10/11/23 02:51 [id number] TAPE OK valproic acid AdvReac Intermediate feels "out Verified 10/11/23 02:51 of it" Home Meds Home Medications Medication Instructions Recorded Confirmed aspirin 81 mg tablet,delayed 81 mg PO Q OTHER DAY 03/08/19 10/11/23 release atorvastatin 40 mg tablet 40 mg PO QPM #30 tabs 03/08/19 10/11/23 clopidogrel 75 mg tablet 75 mg PO QPM 03/08/19 10/11/23 diazepam 10 mg tablet 10 mg PO .Q4-6HR PRN HEADACHES 03/08/19 10/11/23 hydrocodone 5 mg-acetaminophen 325 1 tab PO Q6 PRN Severe Pain (Scale 03/08/19 10/11/23 mg tablet Score 7-10) tizanidine 2 mg capsule 4 mg PO HS 03/08/19 10/11/23 amitriptyline 10 mg tablet 30 mg PO HS 06/18/20 10/11/23 erenumab-aooe 70 mg/mL 70 mg subcut MONTHLY 06/18/20 10/11/23 subcutaneous auto-injector (Aimovig Autoinjector) dexlansoprazole 30 mg 30 mg PO DAILYBB 10/16/20 10/11/23 capsule,biphase delayed release (Dexilant) duloxetine 40 mg capsule,delayed 40 mg PO QAM 10/16/20 10/11/23 release sprinkle losartan 100 mg tablet 100 mg PO QAM 10/16/20 10/11/23 amlodipine 5 mg tablet 5 mg PO QAM 10/11/23 10/11/23 cyanocobalamin (vitamin B-12) 1,000 mcg PO Q OTHER DAY 10/11/23 10/11/23 1,000 mcg tablet (Vitamin B-12) diphenhydramine HCl 25 mg tablet 25 mg PO HS PRN Sleep 10/11/23 10/11/23 lasmiditan 50 mg tablet (Reyvow) 50 mg PO ONCE PRN onset of migraine 10/11/23 10/11/23 magnesium oxide 400 mg PO Q OTHER DAY 10/11/23 10/11/23 metoprolol succinate 50 mg 50 mg PO AMHS 10/11/23 10/11/23 tablet,extended release 24 hr multivitamin 1 tab PO DAILY 10/11/23 10/11/23 ropinirole 0.5 mg tablet 1.5 mg PO UD 10/11/23 10/11/23 trazodone 50 mg tablet 50 mg PO QPM 10/11/23 10/11/23 Results & Data (ED) Vital Signs Vital Signs - 24 hr 10/11/23 01:11 10/11/23 01:23 10/11/23 01:25 Temperature 36.4 C L Temperature Source Temporal Artery Scan Pulse Rate 71 77 70 Pulse Rate [Apical] Pulse Rate from SpO2 Sensor 75 Pulse Rhythm Regular Pulse Rhythm [Apical] Pulse Strength Normal Pulse Strength [Apical] Respiratory Rate 21 26 H Respiratory Effort / Characteristics Non-Labored Spontaneous Respiratory Depth Normal Respiratory Pattern Regular Blood Pressure 114/55 L Blood Pressure [Right Arm] Blood Pressure Mean 74 Blood Pressure Mean [Right Arm] Blood Pressure Position Semi-fowlers Blood Pressure Position [Right Arm] Pulse Oximetry 96 94 Oxygen Delivery Method Room Air Room Air Oxygen Flow Rate Sepsis Recent Fever Within 48 Hours No Sepsis New/Unexplained Change in Mental Status N/A Sepsis Action Taken by Nursing No Action Required 10/11/23 01:30 10/11/23 01:36 10/11/23 01:36 Temperature Temperature Source Pulse Rate 73 70 Pulse Rate [Apical] Pulse Rate from SpO2 Sensor 69 Pulse Rhythm Pulse Rhythm [Apical] Pulse Strength Pulse Strength [Apical] Respiratory Rate 21 24 Respiratory Effort / Characteristics Respiratory Depth Respiratory Pattern Blood Pressure 111/61 Blood Pressure [Right Arm] Blood Pressure Mean 75 Blood Pressure Mean [Right Arm] Blood Pressure Position Blood Pressure Position [Right Arm] Pulse Oximetry 93 Oxygen Delivery Method Room Air Oxygen Flow Rate Sepsis Recent Fever Within 48 Hours Sepsis New/Unexplained Change in Mental Status Sepsis Action Taken by Nursing 10/11/23 01:40 10/11/23 02:00 10/11/23 02:00 Temperature 36.7 C Temperature Source Oral Pulse Rate 67 Pulse Rate [Apical] 70 Pulse Rate from SpO2 Sensor 67 Pulse Rhythm Pulse Rhythm [Apical] Regular Pulse Strength Pulse Strength [Apical] Normal Respiratory Rate 18 24 Respiratory Effort / Characteristics Non-Labored Spontaneous Respiratory Depth Normal Respiratory Pattern Regular Blood Pressure 115/61 Blood Pressure [Right Arm] 111/61 Blood Pressure Mean 77 Blood Pressure Mean [Right Arm] 77 Blood Pressure Position Blood Pressure Position [Right Arm] Semi-fowlers Pulse Oximetry 93 92 Oxygen Delivery Method Room Air Room Air Oxygen Flow Rate Sepsis Recent Fever Within 48 Hours Sepsis New/Unexplained Change in Mental Status Sepsis Action Taken by Nursing 10/11/23 02:30 10/11/23 02:30 10/11/23 02:30 Temperature Temperature Source Pulse Rate 67 65 Pulse Rate [Apical] Pulse Rate from SpO2 Sensor Pulse Rhythm Pulse Rhythm [Apical] Pulse Strength Pulse Strength [Apical] Respiratory Rate 22 21 Respiratory Effort / Characteristics Respiratory Depth Respiratory Pattern Blood Pressure 100/49 L Blood Pressure [Right Arm] Blood Pressure Mean 61 Blood Pressure Mean [Right Arm] Blood Pressure Position Blood Pressure Position [Right Arm] Pulse Oximetry 92 Oxygen Delivery Method Room Air Oxygen Flow Rate Sepsis Recent Fever Within 48 Hours Sepsis New/Unexplained Change in Mental Status Sepsis Action Taken by Nursing 10/11/23 03:00 10/11/23 03:00 10/11/23 03:04 Temperature Temperature Source Pulse Rate 63 Pulse Rate [Apical] 66 Pulse Rate from SpO2 Sensor 61 Pulse Rhythm Pulse Rhythm [Apical] Regular Pulse Strength Pulse Strength [Apical] Normal Respiratory Rate 24 20 Respiratory Effort / Characteristics Non-Labored Spontaneous Respiratory Depth Normal Respiratory Pattern Regular Blood Pressure 105/54 L Blood Pressure [Right Arm] 127/67 Blood Pressure Mean 68 Blood Pressure Mean [Right Arm] 87 Blood Pressure Position Blood Pressure Position [Right Arm] Sitting Pulse Oximetry 90 96 Oxygen Delivery Method Room Air Nasal Cannula Oxygen Flow Rate 2 Sepsis Recent Fever Within 48 Hours Sepsis New/Unexplained Change in Mental Status Sepsis Action Taken by Nursing 10/11/23 03:39 10/11/23 04:00 10/11/23 04:00 Temperature Temperature Source Pulse Rate 64 60 Pulse Rate [Apical] Pulse Rate from SpO2 Sensor 60 Pulse Rhythm Pulse Rhythm [Apical] Pulse Strength Pulse Strength [Apical] Respiratory Rate 16 20 Respiratory Effort / Characteristics Respiratory Depth Respiratory Pattern Blood Pressure 123/64 Blood Pressure [Right Arm] Blood Pressure Mean 91 Blood Pressure Mean [Right Arm] Blood Pressure Position Blood Pressure Position [Right Arm] Pulse Oximetry 91 Oxygen Delivery Method Room Air Oxygen Flow Rate Sepsis Recent Fever Within 48 Hours Sepsis New/Unexplained Change in Mental Status Sepsis Action Taken by Nursing 10/11/23 04:30 10/11/23 04:30 10/11/23 05:04 Temperature Temperature Source Pulse Rate 60 Pulse Rate [Apical] 63 Pulse Rate from SpO2 Sensor 60 Pulse Rhythm Pulse Rhythm [Apical] Regular Pulse Strength Pulse Strength [Apical] Normal Respiratory Rate 20 20 Respiratory Effort / Characteristics Non-Labored Spontaneous Respiratory Depth Normal Respiratory Pattern Regular Blood Pressure 112/59 L Blood Pressure [Right Arm] 127/67 Blood Pressure Mean 81 Blood Pressure Mean [Right Arm] 87 Blood Pressure Position Blood Pressure Position [Right Arm] Sitting Pulse Oximetry 96 96 Oxygen Delivery Method Nasal Cannula Nasal Cannula Oxygen Flow Rate 2 2 Sepsis Recent Fever Within 48 Hours Sepsis New/Unexplained Change in Mental Status Sepsis Action Taken by Nursing 10/11/23 05:16 Temperature Temperature Source Pulse Rate 58 L Pulse Rate [Apical] Pulse Rate from SpO2 Sensor Pulse Rhythm Pulse Rhythm [Apical] Pulse Strength Pulse Strength [Apical] Respiratory Rate Respiratory Effort / Characteristics Respiratory Depth Respiratory Pattern Blood Pressure Blood Pressure [Right Arm] Blood Pressure Mean Blood Pressure Mean [Right Arm] Blood Pressure Position Blood Pressure Position [Right Arm] Pulse Oximetry Oxygen Delivery Method Oxygen Flow Rate Sepsis Recent Fever Within 48 Hours Sepsis New/Unexplained Change in Mental Status Sepsis Action Taken by Nursing Laboratory Data 10/13/23 05:44 10/13/23 05:44 Lab Results 10/11/23 10/11/23 10/11/23 Range/Units 01:27 02:27 03:56 WBC 7.15 (4.8-10.8) K/ul RBC 3.76 L (4.20-5.40) M/uL Hgb 10.3 L (12.0-16.0) g/dl Hct 31.9 L (37.0-47.0) % MCV 84.8 (80.0-100.0) fL MCH 27.4 (25.0-34.0) pg MCHC 32.3 (32.0-36.0) g/dL RDW Std Deviation 44.1 (36.4-46.3) fL RDW Coeff of Valarie 14.4 (11.5-14.5) % Plt Count 205 (130-400) K/uL MPV 10.9 (9.4-12.4) fL Immature Gran % (Auto) 0.4 % Neut % (Auto) 54.6 % Lymph % (Auto) 30.2 % [place] % (Auto) 10.6 % Eos % (Auto) 3.4 % Baso % (Auto) 0.8 % Neut # (Auto) 3.90 (1.40-6.50) K/uL Lymph # (Auto) 2.16 (1.20-3.40) K/uL [place] # (Auto) 0.76 H (0.11-0.59) K/uL Eos # (Auto) 0.24 (0.00-0.50) K/uL Baso # (Auto) 0.06 (0.00-0.20) K/uL Immature Gran # (Auto) 0.03 (0.01-0.20) K/uL Sodium 136 (136-145) mmol/L Potassium TNP 4.1 Chloride 105 (98-107) mmol/L Carbon Dioxide 24 (21-32) mmol/L Anion Gap 7 (3-11) BUN 20 (6-23) mg/dl Creatinine 0.85 (0.6-1.2) mg/dl Est Cr Clr Drug Dosing 57.7 ml/min Est GFR ( Amer) 77.7 ml/min Est GFR (Non-Af Amer) 67.0 ml/min BUN/Creatinine Ratio 23.5 H (10-20) Glucose 119 H (70-99(Fasting)) mg/dl Estimat Average Glucose 128 mg/dl Hemoglobin A1c 6.1 H (4.5-5.6) % Lactate (0.4-2.0) mmol/L Calcium 8.5 L (8.6-10.3) mg/dl Magnesium 2.2 (1.7-2.4) mg/dl Total Bilirubin 0.4 (0.2-1.0) mg/dl AST TNP 16 ALT 17 (7-52) U/L Alkaline Phosphatase 77 (34-104) U/L Troponin I High Sens 4.3 (0-14) pg/ml Total Protein 6.2 (6.0-8.3) gm/dl Albumin 3.7 (3.4-5.0) gm/dl Globulin 2.5 (2.5-4.0) gm/dl Albumin/Globulin Ratio 1.5 (0.9-2) Lipase 24 (11-82) U/L Procalcitonin (0-0.5) ng/ml TSH 1.791 (0.300-4.500) uIu/ml Adenovirus (PCR) Not Detected (NotDetected) B. pertussis DNA (PCR) Not Detected (NotDetected) B.parapertussis DNA PCR Not Detected (NotDetected) C. pneumoniae DNA (PCR) Not Detected (NotDetected) Coronavirus OC43 (PCR) Not Detected (NotDetected) Coronavirus HKU1 (PCR) Not Detected (NotDetected) Coronavirus 229E (PCR) Not Detected (NotDetected) SARS-CoV-2 (PCR) Not Detected (NotDetected) Coronavirus NL63 (PCR) Not Detected (NotDetected) Human Metapneumovir PCR Not Detected (NotDetected) Influenza Type A (PCR) Not Detected (NotDetected) Influenza Type B (PCR) Not Detected (NotDetected) M. pneumoniae (PCR) Not Detected (NotDetected) Parainfluenza 1 (PCR) Not Detected (NotDetected) Parainfluenza 2 (PCR) Not Detected (NotDetected) Parainfluenza 3 (PCR) Not Detected (NotDetected) Parainfluenza 4 (PCR) Not Detected (NotDetected) RSV (PCR) Not Detected (NotDetected) Entero/Rhino (PCR) Not Detected (NotDetected) 10/11/23 10/11/23 Range/Units 03:58 06:10 WBC (4.8-10.8) K/ul RBC (4.20-5.40) M/uL Hgb (12.0-16.0) g/dl Hct (37.0-47.0) % MCV (80.0-100.0) fL MCH (25.0-34.0) pg MCHC (32.0-36.0) g/dL RDW Std Deviation (36.4-46.3) fL RDW Coeff of Valarie (11.5-14.5) % Plt Count (130-400) K/uL MPV (9.4-12.4) fL Immature Gran % (Auto) % Neut % (Auto) % Lymph % (Auto) % [place] % (Auto) % Eos % (Auto) % Baso % (Auto) % Neut # (Auto) (1.40-6.50) K/uL Lymph # (Auto) (1.20-3.40) K/uL [place] # (Auto) (0.11-0.59) K/uL Eos # (Auto) (0.00-0.50) K/uL Baso # (Auto) (0.00-0.20) K/uL Immature Gran # (Auto) (0.01-0.20) K/uL Sodium (136-145) mmol/L Potassium Chloride (98-107) mmol/L Carbon Dioxide (21-32) mmol/L Anion Gap (3-11) BUN (6-23) mg/dl Creatinine (0.6-1.2) mg/dl Est Cr Clr Drug Dosing ml/min Est GFR ( Amer) ml/min Est GFR (Non-Af Amer) ml/min BUN/Creatinine Ratio (10-20) Glucose (70-99(Fasting)) mg/dl Estimat Average Glucose mg/dl Hemoglobin A1c (4.5-5.6) % Lactate 0.6 (0.4-2.0) mmol/L Calcium (8.6-10.3) mg/dl Magnesium (1.7-2.4) mg/dl Total Bilirubin (0.2-1.0) mg/dl AST ALT (7-52) U/L Alkaline Phosphatase (34-104) U/L Troponin I High Sens (0-14) pg/ml Total Protein (6.0-8.3) gm/dl Albumin (3.4-5.0) gm/dl Globulin (2.5-4.0) gm/dl Albumin/Globulin Ratio (0.9-2) Lipase (11-82) U/L Procalcitonin < 0.02 (0-0.5) ng/ml TSH (0.300-4.500) uIu/ml Adenovirus (PCR) (NotDetected) B. pertussis DNA (PCR) (NotDetected) B.parapertussis DNA PCR (NotDetected) C. pneumoniae DNA (PCR) (NotDetected) Coronavirus OC43 (PCR) (NotDetected) Coronavirus HKU1 (PCR) (NotDetected) Coronavirus 229E (PCR) (NotDetected) SARS-CoV-2 (PCR) (NotDetected) Coronavirus NL63 (PCR) (NotDetected) Human Metapneumovir PCR (NotDetected) Influenza Type A (PCR) (NotDetected) Influenza Type B (PCR) (NotDetected) M. pneumoniae (PCR) (NotDetected) Parainfluenza 1 (PCR) (NotDetected) Parainfluenza 2 (PCR) (NotDetected) Parainfluenza 3 (PCR) (NotDetected) Parainfluenza 4 (PCR) (NotDetected) RSV (PCR) (NotDetected) Entero/Rhino (PCR) (NotDetected) Administered Medications Acetaminophen (Acetaminophen 325 Mg Tab) 650 mg PO Q4H PRN PRN Reason: Pain or Fever Stop: 11/10/23 09:44 Last Admin: 10/12/23 17:17 Dose: 650 mg Documented By: MTM Albuterol (Albut/Ipratrop 3mg/0.5mg Neb 3 Ml Vial) 3 ml NEB QIDR SHENG; Protocol Stop: 11/10/23 10:59 Last Admin: 10/13/23 07:28 Dose: 3 ml Documented By: TMCarmina Admin: 10/13/23 01:54 Dose: 3 ml Documented By: Admin: 10/12/23 20:02 Dose: 3 ml Documented By: Admin: 10/12/23 15:18 Dose: 3 ml Documented By: Admin: 10/12/23 10:51 Dose: 3 ml Documented By: Admin: 10/12/23 07:08 Dose: 3 ml Documented By: Admin: 10/11/23 20:45 Dose: 3 ml Documented By: EMRaghav Admin: 10/11/23 15:01 Dose: 3 ml Documented By: Admin: 10/11/23 11:56 Dose: Not Given Documented By: Admin: 10/11/23 11:05 Dose: 3 ml Documented By: JAVI Amitriptyline HCl (Amitriptyline Hcl 10 Mg Tab) 30 mg PO HS SHENG Stop: 11/10/23 20:59 Last Admin: 10/12/23 20:54 Dose: 30 mg Documented By: Admin: 10/11/23 21:39 Dose: 30 mg Documented By: MIGUEL Amlodipine Besylate (Amlodipine Besylate 5 Mg Tab) 5 mg PO QAM SHENG Stop: 11/10/23 09:44 Last Admin: 10/13/23 09:02 Dose: 5 mg Documented By: MTFabiano Admin: 10/12/23 08:45 Dose: 5 mg Documented By: Admin: 10/11/23 10:52 Dose: 5 mg Documented By: MONTY Atorvastatin Calcium (Atorvastatin 40 Mg Tab) 40 mg PO QPM SHENG Stop: 11/10/23 20:59 Last Admin: 10/12/23 20:54 Dose: 40 mg Documented By: Admin: 10/11/23 21:41 Dose: 40 mg Documented By: MIGUEL Benzonatate (Benzonatate 100 Mg Capsule) 100 mg PO TID PRN PRN Reason: Cough Stop: 11/11/23 01:46 Last Admin: 10/13/23 01:13 Dose: 100 mg Documented By: FRED Cyanocobalamin (Cyanocobalamin (B-12) 500 Mcg Tablet) 1,000 mcg PO Q2D@0900 SHENG Stop: 11/11/23 08:59 Last Admin: 10/12/23 08:45 Dose: 1,000 mcg Documented By: MONTY Doxycycline Hyclate (Doxycycline Hyclate 100 Mg Cap) 100 mg PO Q12H SHENG Stop: 10/18/23 19:59 Last Admin: 10/13/23 09:01 Dose: 100 mg Documented By: Admin: 10/12/23 20:54 Dose: 100 mg Documented By: Admin: 10/12/23 08:45 Dose: 100 mg Documented By: Admin: 10/11/23 21:41 Dose: 100 mg Documented By: MIGUEL Duloxetine HCl (Duloxetine Hcl 20 Mg Cap) [facility] Stop: 11/10/23 09:44 Last Admin: 10/13/23 09:02 Dose: 40 mg Documented By: Admin: 10/12/23 08:45 Dose: 40 mg Documented By: Admin: 10/11/23 10:52 Dose: 40 mg Documented By: MONTY Guaifenesin (Guaifenesin 600 Mg Tabcr) 600 mg PO Q12 [facility] Stop: 11/10/23 07:24 Last Admin: 10/13/23 09:02 Dose: 600 mg Documented By: Admin: 10/12/23 20:53 Dose: 600 mg Documented By: Admin: 10/12/23 08:45 Dose: 600 mg Documented By: Admin: 10/11/23 21:38 Dose: 600 mg Documented By: Admin: 10/11/23 07:46 Dose: 600 mg Documented By: NORBERT Guaifenesin/Codeine Phosphate (Guaifenesin/Codeine 100mg/10mg 5ml Udc) 5 ml PO Q6H PRN PRN Reason: Cough Stop: 11/11/23 03:45 Last Admin: 10/12/23 20:49 Dose: 5 ml Documented By: Admin: 10/12/23 04:32 Dose: 5 ml Documented By: FRED Ceftriaxone Sodium 1,000 mg/ (Dextrose) 50 mls @ 100 mls/hr IV Q24H [facility]; Protocol Stop: 10/19/23 10:14 Last Infusion: 10/12/23 11:56 Dose: Infused Documented By: Admin: 10/12/23 11:08 Dose: 100 mls/hr Documented By: MONTY Lactobacillus Acidophilus (Advanced Probiotic 625 Mg Capsule) 1,250 mg PO DAILY [facility] Stop: 11/11/23 10:14 Last Admin: 10/13/23 09:02 Dose: 1,250 mg Documented By: Admin: 10/12/23 11:08 Dose: 1,250 mg Documented By: MONTY Losartan Potassium (Losartan Potassium 50 Mg Tab) 100 mg PO QAM [facility] Stop: 11/10/23 09:59 Last Admin: 10/13/23 09:02 Dose: 100 mg Documented By: Admin: 10/12/23 08:45 Dose: 100 mg Documented By: Admin: 10/11/23 10:52 Dose: 100 mg Documented By: MONTY Metoprolol Succinate (Metoprolol Succ 50mg Ext Rel Tab) 50 mg PO AMHS [facility] Stop: 11/10/23 09:44 Last Admin: 10/13/23 09:02 Dose: 50 mg Documented By: Admin: 10/12/23 20:53 Dose: 50 mg Documented By: Admin: 10/12/23 08:45 Dose: 50 mg Documented By: Admin: 10/11/23 21:39 Dose: 50 mg Documented By: Admin: 10/11/23 10:52 Dose: 50 mg Documented By: MONTY Multivitamins (Multivitamin Tab) 1 tab PO DAILY SHENG Stop: 11/10/23 09:44 Last Admin: 10/13/23 09:02 Dose: 1 tab Documented By: Admin: 10/12/23 08:45 Dose: 1 tab Documented By: Admin: 10/11/23 10:52 Dose: 1 tab Documented By: MONTY Pantoprazole Sodium (Pantoprazole 40 Mg Tab) 40 mg PO DAILYBB SHENG Stop: 11/11/23 06:29 Last Admin: 10/13/23 06:07 Dose: 40 mg Documented By: Admin: 10/12/23 04:33 Dose: 40 mg Documented By: FRED Ropinirole HCl (Ropinirole Hcl 1 Mg Tablet) 1.5 mg PO 1700,2100 SHENG Stop: 11/10/23 16:59 Last Admin: 10/12/23 20:52 Dose: 1.5 mg Documented By: Admin: 10/12/23 17:17 Dose: 1.5 mg Documented By: Admin: 10/11/23 21:35 Dose: 1.5 mg Documented By: Admin: 10/11/23 17:18 Dose: 1.5 mg Documented By: MTFabiano Tizanidine HCl (Tizanidine Hcl 4 Mg Tablet) 4 mg PO HS SHENG Stop: 11/10/23 20:59 Last Admin: 10/12/23 20:51 Dose: 4 mg Documented By: Admin: 10/11/23 21:34 Dose: 4 mg Documented By: MIGUEL Trazodone HCl (Trazodone Hcl 50 Mg Tab) 50 mg PO QPM SHENG Stop: 11/10/23 20:59 Last Admin: 10/12/23 20:51 Dose: 50 mg Documented By: Admin: 10/11/23 21:34 Dose: 50 mg Documented By: MIGUEL Discontinued Medications Albuterol (Albut/Ipratrop 3mg/0.5mg Neb 3 Ml Vial) 3 ml NEB NOW STA; Protocol Stop: 10/11/23 06:09 Last Admin: 10/11/23 06:39 Dose: 3 ml Documented By: LINDA Benzonatate (Benzonatate 100 Mg Capsule) 100 mg PO NOW ONE Stop: 10/12/23 01:48 Last Admin: 10/12/23 01:59 Dose: 100 mg Documented By: FRED Hydrocodone Bit/Homatropine Methylb (Hydrocodone/Homatropine Syrup 5mg/1.5mg 5ml Udp) 5 ml PO NOW STA Stop: 10/11/23 02:19 Last Admin: 10/11/23 02:26 Dose: 5 ml Documented By: MARICARMEN Ceftriaxone Sodium (Rocephin) 1,000 mg in 50 mls @ 100 mls/hr IV NOW STA Stop: 10/11/23 06:14 Last Infusion: 10/11/23 06:39 Dose: Infused Documented By: Admin: 10/11/23 06:06 Dose: 100 mls/hr Documented By: MARICARMEN Methylprednisolone 40 mg/ (Syringe) 0.64 mls @ 1.5 mls/min IV NOW STA Stop: 10/11/23 06:09 Last Admin: 10/11/23 06:34 Dose: Not Given Documented By: MARICARMEN Doxycycline Hyclate 100 mg/ (Dextrose) 100 mls @ 50 mls/hr IV NOW STA Stop: 10/11/23 09:18 Last Infusion: 10/11/23 10:20 Dose: Infused Documented By: Admin: 10/11/23 07:45 Dose: 50 mls/hr Documented By: ONRBERT Sodium Chloride (Nss) 500 mls @ 60 mls/hr IV .[id number] ONE Stop: 10/11/23 15:40 Last Infusion: 10/11/23 17:17 Dose: Infused Documented By: Admin: 10/11/23 07:46 Dose: 60 mls/hr Documented By: NORBERT Iron Sucrose 200 mg/ Sodium (Chloride) 110 mls @ 220 mls/hr IV TODAY@1500 ONE Stop: 10/11/23 15:29 Last Infusion: 10/11/23 15:51 Dose: Infused Documented By: Admin: 10/11/23 15:11 Dose: 220 mls/hr Documented By: MONTY Ioversol (Optiray 320 100ml) 100 ml IV ONCE ONE Stop: 10/11/23 03:45 Last Admin: 10/11/23 03:44 Dose: 91 ml Documented By: ALESSANDRA Ketorolac Tromethamine (Ketorolac Tromethamine 15 Mg/Ml Vial) 15 mg IV NOW STA Stop: 10/11/23 02:19 Last Admin: 10/11/23 02:26 Dose: 15 mg Documented By: MARICARMEN Discharge Plan Visit Data Chief Complaint: Illness Stated Complaint: SORE THROAT,COUGH,PRESSURE IN CHEST,LOSS OF VOICE ED Provider: Jennifer Tran Discharge Problem: Hypoxia, Pneumonia of both upper lobes Patient Disposition: Admitted As Inpatient Discharge Instructions Interventions: ED Discharge Assessment Last Done: 10/11/23 09:17
--- NOTE | 2023-10-11 05:29 | CT Scan Report ---
Exam(s): CT CHEST With Contrast IV Amt: 91 ML OPTIRAY 320 EXAM: CT Chest With Intravenous Contrast CLINICAL HISTORY: Evaluate right perihilar region - pneumonia vs. mass. TECHNIQUE: Axial computed tomography images of the chest with intravenous contrast. CTDI is 20.67 mGy and DLP is 605.93 mGy-cm. Automated exposure control was utilized for the study. A dose lowering technique was utilized adhering to the principles of ALARA. CONTRAST: Patient received 91 ML OPTIRAY 320 of IV contrast COMPARISON: No relevant prior studies available. FINDINGS: Lungs: Bilateral upper lobe, right greater than left, patient is opacities are most consistent with atypical infection and/or aspiration. Pleural space: Unremarkable. No pneumothorax. No significant effusion. Heart: Unremarkable. No cardiomegaly. No significant pericardial effusion. No significant coronary artery calcifications. Bones/joints: There are degenerative changes of the spine. No acute fracture. No dislocation. Soft tissues: Unremarkable. Vasculature: Mild atherosclerosis. No thoracic aortic aneurysm. Lymph nodes: Unremarkable. No enlarged lymph nodes. IMPRESSION: Bilateral upper lobe, right greater than left, patient is opacities are most consistent with atypical infection and/or aspiration. Electronically signed by: Ofelia Dorado MD 10/11/23 05:28 AM
[2023-10-11] MEDS: cefTRIAXone SODIUM 1,000 MG/50 ML BAG IV STA (06:06)
[2023-10-11] MEDS: methylPREDNISolone 40 MG in SYRINGE 0 ML IV STA (06:34)
[2023-10-11] MEDS: ALBUT/IPRATROP 3MG/0.5MG NEB 3 ML VIAL NEB STA (06:39)
--- NOTE | 2023-10-11 06:39 | History & Physical Report ---
Date of Service October 11, 2023 Assessment & Plan (1) Acute hypoxemic respiratory failure: Plan: Secondary to atypical pneumonia No sepsis for now hx CVA, on antiplatelet Rx hypertension, stable hyperlipidemia, on statin Rx past history of PE status post anticoagulation migraine, stable on regimen anxiety/mood disorder, at baseline GERD, stable on PPI New onset anemia, episodic painless hematuria from last month, none currently Hyperglycemia likely prediabetes with hemoglobin A1c of 5.7 from 2017 Med/tele Supplemental O2 Doxycycline Nebs RTC Pulmonary consult if without improvement Check UA, CT abdomen pelvis Re: Hematuria Urology consult contingent on CT abdomen pelvis results Appropriate to hold home antiplatelet Rx for now given anemia and hematuria symptoms anemia workup, transfuse PRBC if hemoglobin less than 8 and or from symptomatic anemia (hx CVA) update hemoglobin A1c DVT prophylaxis. SCDs Re: History hematuria Full code Text document was generated using [email or web address] voice recognition software. It may contain grammatical or spelling errors. Kindly contact undersigned for clarification of any documentation item in question. History of Present Illness Chief Complaint: Cough, worsening shortness of breath Primary Care Provider: Beth Wang History obtained from patient and records. Medical history significant for CVA, hypertension, hyperlipidemia, past history of PE status post anticoagulation, migraine, anxiety/mood disorder, GERD, IBS. Last confinement 2017 for sepsis secondary to aspiration pneumonia. 1 week history of dry cough symptoms associated with voice change. Patient denies aspiration. No fever, no chills. Possible sick contacts during recent weight/ for her . Worsening shortness of breath with transient chest heaviness. Denies abdominal or flank pain/black/bloody stools. Gross hematuria 2 episodes last month, none currently. Patient evaluated by local urologist outpatient. Cystoscopy to be scheduled as per patient. Lowest O2 sats of 80s documented at the ER. Ceftriaxone administered at the ER. Patient feeling much better after neb treatment at the ER. 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 Allergies Allergy/AdvReac Type Severity Reaction Status Date / Time Penicillins Allergy Intermediate ITCHY RASH Verified 10/11/23 02:51 adhesive Allergy Mild REDNESS Verified 10/11/23 02:51 CAUM-DRWS-BQWYN TAPE OK valproic acid AdvReac Intermediate feels "out Verified 10/11/23 02:51 of it" Home Medications Medication Instructions Recorded Confirmed Type aspirin 81 mg tablet,delayed 81 mg PO Q OTHER DAY 03/08/19 10/11/23 History release atorvastatin 40 mg tablet 40 mg PO QPM #30 tabs 03/08/19 10/11/23 History clopidogrel 75 mg tablet 75 mg PO QPM 03/08/19 10/11/23 History diazepam 10 mg tablet 10 mg PO .Q4-6HR PRN HEADACHES 03/08/19 10/11/23 History hydrocodone 5 mg-acetaminophen 325 1 tab PO Q6 PRN Severe Pain (Scale 03/08/19 10/11/23 History mg tablet Score 7-10) tizanidine 2 mg capsule 4 mg PO HS 03/08/19 10/11/23 History amitriptyline 10 mg tablet 30 mg PO HS 06/18/20 10/11/23 History erenumab-aooe 70 mg/mL 70 mg subcut MONTHLY 06/18/20 10/11/23 History subcutaneous auto-injector (Aimovig Autoinjector) dexlansoprazole 30 mg 30 mg PO DAILYBB 10/16/20 10/11/23 History capsule,biphase delayed release (Dexilant) duloxetine 40 mg capsule,delayed 40 mg PO QAM 10/16/20 10/11/23 History release sprinkle losartan 100 mg tablet 100 mg PO QAM 10/16/20 10/11/23 History amlodipine 5 mg tablet 5 mg PO QAM 10/11/23 10/11/23 History cyanocobalamin (vitamin B-12) 1,000 mcg PO Q OTHER DAY 10/11/23 10/11/23 History 1,000 mcg tablet (Vitamin B-12) diphenhydramine HCl 25 mg tablet 25 mg PO HS PRN Sleep 10/11/23 10/11/23 History lasmiditan 50 mg tablet (Reyvow) 50 mg PO ONCE PRN onset of migraine 10/11/23 10/11/23 History magnesium oxide 400 mg PO Q OTHER DAY 10/11/23 10/11/23 History metoprolol succinate 50 mg 50 mg PO AMHS 10/11/23 10/11/23 History tablet,extended release 24 hr multivitamin 1 tab PO DAILY 10/11/23 10/11/23 History ropinirole 0.5 mg tablet 1.5 mg PO UD 10/11/23 10/11/23 History trazodone 50 mg tablet 50 mg PO QPM 10/11/23 10/11/23 History Past Med/Surg History Social History Smoking Status: Never smoker Preferred Language: Greenlandic Feels Safe at Home: Yes Review of Systems Review of Systems: As per HPI, all other systems reviewed and negative Physical Exam Physical Exam: GENERAL: Comfortable, pleasant, obese, dysphonic, no respiratory distress SKIN: Pallor,, warm HEENT: Bespectacled, pale palpebral conjunctivae, no ptosis, dry buccal mucosa, nasal cannula in place NECK : Supple, no tenderness CHEST : Decreased breath sounds, no tenderness HEART : RRR, no obvious murmurs ABDOMEN: Some distention, nontender EXTREMITIES : No LE swelling/tenderness, no other conspicuous deformities noted NEUROLOGIC : Coherent, no facial asymmetry, no other gross focality Results & Data Results & Data Vital Signs (Past 12 Hours) Vital Signs Temp Pulse Pulse Resp BP BP Pulse Ox 10/11/23 06:00 64 17 96 10/11/23 06:00 128/61 10/11/23 05:43 88 L 10/11/23 05:30 121/68 10/11/23 05:30 61 17 96 10/11/23 05:16 58 L 10/11/23 05:04 63 20 127/67 96 10/11/23 05:00 127/67 10/11/23 05:00 63 21 94 10/11/23 04:30 60 20 96 10/11/23 04:30 112/59 L 10/11/23 04:00 60 20 91 10/11/23 04:00 123/64 10/11/23 03:39 64 16 10/11/23 03:04 66 20 127/67 96 10/11/23 03:00 63 24 90 10/11/23 03:00 105/54 L 10/11/23 02:30 100/49 L 10/11/23 02:30 65 21 10/11/23 02:30 67 22 92 10/11/23 02:00 67 24 92 10/11/23 02:00 115/61 10/11/23 01:40 36.7 C 70 18 111/61 93 10/11/23 01:36 70 24 93 10/11/23 01:36 111/61 10/11/23 01:30 73 21 10/11/23 01:25 70 10/11/23 01:23 77 26 H 94 10/11/23 01:11 36.4 C L 71 21 114/55 L 96 O2 Del Method O2 Flow Rate 10/11/23 06:00 Nasal Cannula 2 10/11/23 06:00 10/11/23 05:43 Room Air 0 10/11/23 05:30 10/11/23 05:30 Nasal Cannula 2 10/11/23 05:16 10/11/23 05:04 Nasal Cannula 2 10/11/23 05:00 10/11/23 05:00 Nasal Cannula 2 10/11/23 04:30 Nasal Cannula 2 10/11/23 04:30 10/11/23 04:00 Room Air 10/11/23 04:00 10/11/23 03:39 10/11/23 03:04 Nasal Cannula 2 10/11/23 03:00 Room Air 10/11/23 03:00 10/11/23 02:30 10/11/23 02:30 10/11/23 02:30 Room Air 10/11/23 02:00 Room Air 10/11/23 02:00 10/11/23 01:40 Room Air 10/11/23 01:36 Room Air 10/11/23 01:36 10/11/23 01:30 10/11/23 01:25 10/11/23 01:23 Room Air 10/11/23 01:11 Room Air Laboratory Results Laboratory Results WBC 7.15 K/ul (4.8-10.8) 10/11/23 02:27 RBC 3.76 M/uL (4.20-5.40) L 10/11/23 02:27 Hgb 10.3 g/dl (12.0-16.0) L 10/11/23 02:27 Hct 31.9 % (37.0-47.0) L 10/11/23 02:27 MCV 84.8 fL (80.0-100.0) 10/11/23 02:27 MCH 27.4 pg (25.0-34.0) 10/11/23 02:27 MCHC 32.3 g/dL (32.0-36.0) 10/11/23 02: RDW Std Deviation 44.1 fL (36.4-46.3) 10/11/23 02: RDW Coeff of Valarie 14.4 % (11.5-14.5) 10/11/23 02: Plt Count 205 K/uL (130-400) 10/11/23 02:27 MPV 10.9 fL (9.4-12.4) 10/11/23 02:27 Immature Gran % (Auto) 0.4 % 10/11/23 02: Neut % (Auto) 54.6 % 10/11/23 02: Lymph % (Auto) 30.2 % 10/11/23 02:27 [place] % (Auto) 10.6 % 10/11/23 02: Eos % (Auto) 3.4 % 10/11/23 02: Baso % (Auto) 0.8 % 10/11/23 02: Neut # (Auto) 3.90 K/uL (1.40-6.50) 10/11/23 02:27 Lymph # (Auto) 2.16 K/uL (1.20-3.40) 10/11/23 02:27 [place] # (Auto) 0.76 K/uL (0.11-0.59) H 10/11/23 02:27 Eos # (Auto) 0.24 K/uL (0.00-0.50) 10/11/23 02:27 Baso # (Auto) 0.06 K/uL (0.00-0.20) 10/11/23 02:27 Immature Gran # (Auto) 0.03 K/uL (0.01-0.20) 10/11/23 02:27 Sodium 136 mmol/L (136-145) 10/11/23 02:27 Potassium 4.1 mmol/L (3.5-5.1) 10/11/23 03:56 Chloride 105 mmol/L (98-107) 10/11/23 02:27 Carbon Dioxide 24 mmol/L (21-32) 10/11/23 02:27 Anion Gap 7 (3-11) 10/11/23 02:27 BUN 20 mg/dl (6-23) 10/11/23 02:27 Creatinine 0.85 mg/dl (0.6-1.2) 10/11/23 02:27 Est Cr Clr Drug Dosing 57.7 ml/min 10/11/23 02:27 Est GFR ( Amer) 77.7 ml/min 10/11/23 02:27 Est GFR (Non-Af Amer) 67.0 ml/min 10/11/23 02:27 BUN/Creatinine Ratio 23.5 (10-20) H 10/11/23 02:27 Glucose 119 mg/dl (70-99(Fasting)) H 10/11/23 02:27 Lactate 0.6 mmol/L (0.4-2.0) 10/11/23 06:10 Calcium 8.5 mg/dl (8.6-10.3) L 10/11/23 02:27 Total Bilirubin 0.4 mg/dl (0.2-1.0) 10/11/23 02:27 AST 16 U/L (13-39) 10/11/23 03:56 ALT 17 U/L (7-52) 10/11/23 02:27 Alkaline Phosphatase 77 U/L (34-104) 10/11/23 02:27 Troponin I High Sens 4.3 pg/ml (0-14) 10/11/23 02:27 Total Protein 6.2 gm/dl (6.0-8.3) 10/11/23 02:27 Albumin 3.7 gm/dl (3.4-5.0) 10/11/23 02:27 Globulin 2.5 gm/dl (2.5-4.0) 10/11/23 02:27 Albumin/Globulin Ratio 1.5 (0.9-2) 10/11/23 02:27 Lipase 24 U/L (11-82) 10/11/23 02:27 Adenovirus (PCR) Not Detected (NotDetected) 10/11/23 01:27 B. pertussis DNA (PCR) Not Detected (NotDetected) 10/11/23 01:27 B.parapertussis DNA PCR Not Detected (NotDetected) 10/11/23 01:27 C. pneumoniae DNA (PCR) Not Detected (NotDetected) 10/11/23 01:27 Coronavirus OC43 (PCR) Not Detected (NotDetected) 10/11/23 01:27 Coronavirus HKU1 (PCR) Not Detected (NotDetected) 10/11/23 01:27 Coronavirus 229E (PCR) Not Detected (NotDetected) 10/11/23 01:27 SARS-CoV-2 (PCR) Not Detected (NotDetected) 10/11/23 01:27 Coronavirus NL63 (PCR) Not Detected (NotDetected) 10/11/23 01:27 Human Metapneumovir PCR Not Detected (NotDetected) 10/11/23 01:27 Influenza Type A (PCR) Not Detected (NotDetected) 10/11/23 01:27 Influenza Type B (PCR) Not Detected (NotDetected) 10/11/23 01:27 M. pneumoniae (PCR) Not Detected (NotDetected) 10/11/23 01:27 Parainfluenza 1 (PCR) Not Detected (NotDetected) 10/11/23 01:27 Parainfluenza 2 (PCR) Not Detected (NotDetected) 10/11/23 01:27 Parainfluenza 3 (PCR) Not Detected (NotDetected) 10/11/23 01:27 Parainfluenza 4 (PCR) Not Detected (NotDetected) 10/11/23 01:27 RSV (PCR) Not Detected (NotDetected) 10/11/23 01:27 Entero/Rhino (PCR) Not Detected (NotDetected) 10/11/23 01:[address] 10/11/23 02:18 Exam(s): CT CHEST With Contrast IV Amt: 91 ML OPTIRAY 320 EXAM: CT Chest With Intravenous Contrast CLINICAL HISTORY: Evaluate right perihilar region - pneumonia vs. mass. TECHNIQUE: Axial computed tomography images of the chest with intravenous contrast. CTDI is 20.67 mGy and DLP is 605.93 mGy-cm. Automated exposure control was utilized for the study. A dose lowering technique was utilized adhering to the principles of ALARA. CONTRAST: Patient received 91 ML OPTIRAY 320 of IV contrast COMPARISON: No relevant prior studies available. FINDINGS: Lungs: Bilateral upper lobe, right greater than left, patient is opacities are most consistent with atypical infection and/or aspiration. Pleural space: Unremarkable. No pneumothorax. No significant effusion. Heart: Unremarkable. No cardiomegaly. No significant pericardial effusion. No significant coronary artery calcifications. Bones/joints: There are degenerative changes of the spine. No acute fracture. No dislocation. Soft tissues: Unremarkable. Vasculature: Mild atherosclerosis. No thoracic aortic aneurysm. Lymph nodes: Unremarkable. No enlarged lymph nodes. IMPRESSION: Bilateral upper lobe, right greater than left, patient is opacities are most consistent with atypical infection and/or aspiration. Electronically signed by: Ofelia Dorado MD 10/11/23 05:28 AM Diagnostic Findings EKG as per my interpretation :Rate 70, NSR, normal axis, septal infarct, no ischemia
[2023-10-11 06:48] LABS: Magnesium 2.2 mg/dl (1.7-2.4); Thyroid Stimulating Hormone 1.791 uIu/ml (0.300-4.500)
[2023-10-11 07:04] LABS: Estimated Average Glucose 128 mg/dl; Hemoglobin A1C 6.1 % (4.5-5.6)
[2023-10-11] MEDS ORDERED: oxyCODONE HCL IR 5 MG TAB (IMMEDIATE RELEASE) PO PRN (07:20)
[2023-10-11] MEDS ORDERED: PROMETHAZINE HCL 6.25 MG in SODIUM CHLORIDE 0.9% 50 ML IV PRN (07:21)
--- NOTE | 2023-10-11 07:42 | XRay Report ---
XR chest 1V portable CLINICAL HISTORY: Pressure in chest, cough, hx of pneumonia COMPARISON STUDY: Chest radiograph October 20, 2017. FINDINGS: Patient is mildly rotated. There is no pneumothorax or pleural effusion. No consolidation i s identified. Cardiac size is at the upper limits of normal. There is no evidence for pulmonary edema . Lung volumes are mildly diminished. IMPRESSION: No acute cardiopulmonary findings. ACT 112: Negative or not required by law. Electronically signed by: Lebron Cho M.D. 10/11/2023 7:41 AM
[2023-10-11] MEDS: DOXYCYCLINE HYCLATE 100 MG in DEXTROSE 5% MINI-B 100 ML IV STA (07:45)
[2023-10-11] MEDS: guaiFENesin 600 MG TABCR PO SCH (07:46)
[2023-10-11] MEDS: SODIUM CHLORIDE 0.9% 500 ML IV ONE (07:46)
[2023-10-11 08:17] LABS: Appearance Urine Clear (Clear); Bacteria Urine Automated Negative (Negative); Bilirubin Urine Negative (Negative); Blood Urine Negative (Negative); Cast Urine Automated 0 /lpf (0-5); Color Urine Yellow; Epithelial Cell Urine Auto >30 /lpf (0-5); Glucose Urine UA Negative (Negative); Ketones Urine Negative (Negative); Leukocyte Esterase Urine 1+ (Negative); Nitrite Urine Negative (Negative); Protein Urine Negative (Negative); RBC Urine Automated 0-4 /hpf (0-4); Specific Gravity Urine > 1.045 (1.000-1.030); Urobilinogen Urine Negative (Negative)
[2023-10-11 08:24] LABS: Base Excess VBG -1.5 mEq/L; HCO3 VBG 24 mmol/L; Oxygen Saturation VBG 72.9 %; PCO2 VBG 44 mmHg (38-50); PO2 VBG 44 mmHg; pH VBG 7.35 (7.36-7.41)
[2023-10-11 08:30] LABS: Hematocrit (blood only) 31.5 % (37.0-47.0); Hemoglobin 10.4 g/dl (12.0-16.0); Reticulocyte % 1.18 % (0.50-2.00); Reticulocytes # 0.04 10^6/uL (0.020-0.100)
--- NOTE | 2023-10-11 08:39 | CT Scan Report ---
CT OF THE ABDOMEN AND PELVIS WITHOUT CONTRAST CLINICAL HISTORY: Hematuria. COMPARISON STUDY: CT of the abdomen and pelvis October 16, 2020. TECHNIQUE: Axial images of the abdomen and pelvis were obtained without IV contrast. Images were revi ewed in the axial, sagittal, and coronal planes. Automated exposure control was utilized for the thompson dy. A dose lowering technique was utilized adhering to the principles of ALARA. FINDINGS: No pneumatosis, free air or portal venous gas is present. There is no hydronephrosis or hyd roureter. Sensitivity for detection of urinary calculi is diminished given excreted contrast from rec ent contrast-enhanced chest CT. However, no calculi are identified. No upper tract urothelial lesions are identified although ureters are incompletely opacified. No bladder lesion is identified although bladder is incompletely opacified. Unenhanced images of the liver, spleen, adrenal glands and pancre as are unremarkable. Water attenuation left renal lesions favor cysts. There is no evidence for a bow el obstruction. There is no lymphadenopathy. No fluid collections are present. IMPRESSION: 1. No hydronephrosis or hydroureter. No urothelial lesions identified although ureters and bladder in completely opacified. 2. Decreased sensitivity for detection of urinary calculi given excreted contrast from recent contras t-enhanced CT. However, no calculi identified. 3. No acute process within the abdomen or pelvis on unenhanced exam. ACT 112: Negative or not required by law. Electronically signed by: Lebron Cho M.D. 10/11/2023 8:36 AM
[2023-10-11 09:08] LABS: Ferritin 22.7 ng/ml (8-388)
[2023-10-11 09:13] LABS: Folate (Folic Acid),Ser orPlas > 22.30 ng/ml (>5.38)
[2023-10-11 09:14] LABS: Vitamin B12 903 pg/ml (180-914)
--- OUTSIDE RECORDS SUMMARY | 2023-10-11 09:27 | External Medical Summary ---
Author Name Unknown Address Unknown Organization K01:[facility] [place] [address] [facility] [place] [id number] Laboratory Report Ordering Provider Test Date Status HUSSEIN HARMON 08/15/2023 15:21:38 Final Observation Date Value Abnormality Reference (Units ) Status BUN 08/15/2023 15:21:38 16 6-20 (mg/dL) Final Creatinine 08/15/2023 15:21:38 0.9 0.5-1.0 (mg/dL) Final Glomerular filtration rate/1.73 sq M.predicted [Volume Rate/Area] in Serum, Plasma or Blood by Creatinine-based formula (CKD-EPI) 08/15/2023 15:21:38 65 >=60 (mL/min) Final eGFR is calculated based on the CKD-EPI 2020 equation SODIUM 08/15/2023 15:21:38 142 135-146 (m mol/L) Final Potassium 08/15/2023 15:21:38 4.1 3.5-5.1 (m mol/L) Final Cl 08/15/2023 15:21:38 106 98-107 (mm ol/L) Final CO2 08/15/2023 15:21:38 27 22-32 (mmo l/L) Final Anion gap 08/15/2023 15:21:38 9 7-15 (mmol /L) Final Glucose 08/15/2023 15:21:38 121 Above high normal 70 -120 (mg/dL) Final Albumin 08/15/2023 15:21:38 4.3 3.8-5.0 (g /dL) Final AST (Aspartate aminotransferase) 08/15/2023 15:21:38 21 10-35 (U/L) Fin al Alk Phos 08/15/2023 15:21:38 111 35-130 (U/ L) Final Bilirubin, Total 08/15/2023 15:21:38 0.3 <=1 .2 (mg/dL) Final Calcium 08/15/2023 15:21:38 9.7 8.4-10.2 ( mg/dL) Final Protein 08/15/2023 15:21:38 6.8 6.0-8.3 (g /dL) Final ALT (Alanine aminotransferase) 08/15/2023 15:21:38 24 10-35 (U/L) Tommy [email or web address] Performing Location [facility] [place] [facility] [address] [facility] [id number]
--- OUTSIDE RECORDS SUMMARY | 2023-10-11 09:27 | External Medical Summary | Summary of Care ---
Author Name Unknown Organization [facility] Address [address] [facility] [place] [address] Phone [phone] Care Team Providers Care Element Winding Machine Tender Name Role Phone Bessy Wang MD Primary Care Provider +1 [phone] Reason for Visit * Reason Comments Outpatient Testing Encounter Details Date Type Department Care Team (Late st Contact Info) Description 08/15/2023 3:20 PM EST Laboratory Laboratory [address] [place] [phone] [place] [address] HTN, goal below 140/90; Hematuria, gross; Screening for iron deficiency anemia; Vitamin D deficiency Allergies Active Allergy Reactions Criticality Noted Date Comments Levofloxacin 09/04/2014 tendinopathy Valproic Acid 02/25/2016 documented as of this encounter (statuses as of 08/15/2023) Medications Medication Sig Dispensed Refills Start Date End Date Status Esomeprazole Magnesium 40 MG CPDR Take 1 Capsule by mouth daily before breakfast. 0 Active acetaminophen (TYLENOL) 500 MG Tablet Take 2 Tablets by mouth in the morning and 2 Tablets at noon and 2 Tablets before bedtime. 0 Active Multiple Vitamins-Minerals (CENTRUM ADULTS) TABS Take 1 Tab by mouth. 0 Active Losartan Potassium 100 MG Tablet Take 1 Tablet by mouth in the morning. 0 Active Dexlansoprazole 60 MG Oral Capsule Delayed Release Take by mouth 30 mg daily . 0 Active metoprolol succinate XL (TOPROL XL) 25 MG TB24 Take 2 Tablets by mouth in the morning. 0 Active clopidogrel (PLAVIX) 75 MG Tablet Take 1 Tablet by mouth in the morning. 0 Active Aspirin 81 MG Tablet Take 1 Tablet by mouth in the morning. 0 Active atorvaSTATin (LIPITOR) 40 MG Tablet Take 1 Tablet by mouth in the morning. 0 Active amLODIPine (NORVASC) 2.5 MG Tablet Take 1 Tablet by mouth in the morning. In am . 0 Active Estrogens, Conjugated 0.625 MG/GM Vaginal Cream (Premarin) Administer 1 g into the vagina in the morning. 1 application every other night. 0 Active DULoxetine HCl 40 MG Oral Capsule Delayed Release Particles (Irenka) TAKE 1 CAPSULE BY MOUTH EVERY DAY IN THE MORNING 0 07/29/2020 Active Mupirocin 2 % External Ointment (Bactroban) Apply to wound on right lower leg daily 22 g 0 12/22/2021 Active Melatonin 5 MG Oral Capsule Take 1 Capsule by mouth at bedtime. 0 Active Diclofenac Sodium 1 % External Gel Apply topically to affected area . 0 Active Restful Legs Sublingual Tablet Sublingual Place under the tongue . 0 Active Fluorouracil 5 % External Cream (Efudex) apply to affected area (left upper cutaneous lip) twice daily for 2-3 weeks 40 g 0 05/24/2022 Active Hydrocortisone 2.5 % External Ointment Apply to affected area on lip twice daily as needed 30 g 0 08/16/2022 Active HYDROcodone-Acetami nophen 5-325 MG Oral Tablet Take 1 Tablet by mouth every 6 hours as needed for Pain, Mild. 60 Tablet 0 09/20/2022 Active Amitriptyline HCl 10 MG Oral Tablet (Elavil) TAKE 3 TABLETS BY MOUTH AT BEDTIME FOR 2 WEEKS MAY INCREASE TO 4 AT BEDTIME IF NEEDED 360 Tablet 1 01/07/2023 Active tiZANidine HCl 2 MG Oral CapsuleIndications: Migraine with aura and without status migrainosus, not intractable TAKE 1 CAPSULE BY MOUTH EVERYDAY AT BEDTIME 90 Capsule 3 02/14/2023 Active Aimovig 70 MG/ML Subcutaneous Solution Auto-injector (Erenumab-aooe) Inject 1mL under the skin monthly. 3 mL 2 04/19/2023 Active diazePAM 10 MG Oral Tablet (Valium)Indications :Migraine with aura and without status migrainosus, not intractable One every 4-6 hrs as needed for anxiety caused by headaches-max of 2 per day 30 Tablet 5 05/11/2023 Active rOPINIRole HCl 0.5 MG Oral Tablet (Requip) Take 3 tablets at 5pm and 3 tablets at bedtime. 540 Tablet 1 05/25/2023 Active Lasmiditan Succinate 100 MG Oral Tablet (Reyvow) Take 1 tablet at onset of migraine. Do not take more than 1 in 24 hours. 10 Tablet 2 07/01/2023 Active documented as of this encounter (statuses as of 08/15/2023) Active Problems Problem Noted Date Diagnosed Date History of nonmelanoma skin cancer 04/21/2017 Overview: SCC left medial lower leg 04/17 BCC right shoulder 01/08 SCC left anterior leg 04/11 Status post total bilateral knee replacement Essential hypertension with goal blood pressure less than 140/90 02/25/2016 Migraine without status migrainosus, not intract able 02/25/2016 ADVANCE DIRECTIVE INFORMATION 04/07/2005 Overview: Yes, Patient instructed to provide copy of advance directive for provider to review and to be scanned into Electronic Medical Record Headache Overview: ICD-10 update of inactive term Irritable bowel syndrome documented as of this encounter (statuses as of 08/15/2023) Resolved Problems Problem Noted Date Diagnosed Date Resolved Date BCC right anterior shoulder 03/201003/19/2010 04/21/2017 documented as of this encounter (statuses as of 08/15/2023) Immunizations Name Administration Dates Next Due COVID-19 mRNA, LNP-s, No Pre serve, 2-Dose Series (Moderna) 10/01/2020,09/03/2020 COVID-19, mRNA, LNP-s, PF, B ooster, 100mcg/0.5mg (Moderna) 06/16/2021 documented as of this encounter Social History Tobacco Use Types Packs/Day Years Used Date Smoking Tobacco: Never Smokeless Tobacco: Never Alcohol Use Standard Drinks/Week Comments No 0 (1 standard drink = 0.6 oz pur e alcohol) Sex and Gender Information Value Date Recorded Sex Assigned at Not on file Gender Identity Not on file Sexual Orientation Not on file Job Start Date Occupation Industry Not on file Not on file Not on file documented as of this encounter Plan of Treatment Upcoming Encounters Date Type Department Care Team (Late st Contact Info) Description 01/31/2024 1:30 PM EDT Imaging Radiology [address] [place] [address] 04/26/2024 3:45 PM EDT [facility] [address] [facility] [place] [address] Cary Meade MD [address] [place] [address] Pending Results Name Type Priority Associated Diagnoses Date /Time COMPREHENSIVE METABOLIC PANEL Lab Routine HTN, goal below 140/90 Hematuria, gross Screening for iron deficiency anemia Vitamin D deficiency 08/15/2023 3:21 PM EST CBC Lab Routine HTN, goal below 140/90 Hematuria, gross Screening for iron deficiency anemia Vitamin D deficiency 08/15/2023 3:21 PM EST 25-HYDROXY VITAMIN D Lab Routine HTN, goal below 140/90 Hematuria, gross Screening for iron deficiency anemia Vitamin D deficiency 08/15/2023 3:21 PM EST Health Maintenance Due Date Last Done Comments Depression Screening 1960 Albumin/Creatinine Ratio 1966 DTaP,Tdap,and Td Vaccines (1 - Tdap) 1967 Zoster Vaccines (1 of 2) 1998 Pneumococcal Vaccine: 65+ Years (1 - PCV) 2013 *BASELINE EKG FOR HTN 08/10/2021 COVID-19 Vaccine (2022- season) 2023 06/16/2021, 10/01/2020, 09/03/2020 Influenza Vaccine (FLU shot) (#1) 2023 GFR 04/20/2024 04/20/2023, 12/30, 01/25/2022, Additional history exists DXA Scan 05/13/2027 05/13/2020 Colorectal Cancer Screening Discontinued Fecal Occult Blood Test Discontinued 06/04/20 16, 08/16/2008, 10/12/2007 Cologuard Discontinued Colonoscopy Discontinued GARDASIL-HPV IMMUNIZATION SERIES Aged Out No longer eligible based on patient's age to complete this topic Hepatitis B Aged Out No longer eligi ble based on patient's age to complete this topic MENINGOCOCCAL (MENACTRA/MENVEO) Aged Out No longer eligible based on patient's age to complete this topic Sigmoidoscopy Discontinued documented as of this encounter Medical Devices Not on filedocumented as of this encounter Visit Diagnoses Diagnosis HTN, goal below 140/90 Unspecified essential hypertension Hematuria, gross Gross hematuria Screening for iron deficiency anemia Vitamin D deficiency Unspecified vitamin D deficiency documented in this encounter Care Teams Element Winding Machine Tender Relationship Specialty Start Date End Date Bessy Wang MD [address] [place] [address] [place] [address] PCP - General 07/16/1999 documented as of this encounter
--- OUTSIDE RECORDS SUMMARY | 2023-10-11 09:27 | External Medical Summary | Summary of Care ---
Author Name Unknown Organization [facility] Address [address] [facility] [place] [address] Phone [phone] Care Team Providers Care Hair Dresser Name Role Phone Bessy Wang MD Primary Care Provider [phone] [phone] Reason for Visit * Reason Onset Date Comments Medication Refill 06/30/2023 Encounter Details Date Type Department Care Team (Late st Contact Info) Description 06/30/2023 Refill Neurology [facility] [address] Catarina Jiménez PA-C 21 [facility] [place] [address] Allergies Active Allergy Reactions Criticality Noted Date Comments Levofloxacin 09/04/2014 tendinopathy Valproic Acid 02/25/2016 documented as of this encounter (statuses as of 07/01/2023) Medications Medication Sig Dispensed Refills Start Date [...] as needed 30 g 0 08/16/2022 Active HYDROcodone-Acetam inophen 5-325 MG Oral Tablet Take 1 Tablet by mouth every 6 hours as needed for Pain, Mild. 60 Tablet 0 09/20/2022 Active Amitriptyline HCl 10 MG Oral Tablet (Elavil) TAKE 3 TABLETS BY MOUTH AT BEDTIME FOR 2 WEEKS MAY INCREASE TO 4 AT BEDTIME IF NEEDED 360 Tablet 1 01/07/2023 Active tiZANidine HCl 2 MG Oral CapsuleIndications :Migraine with aura and without status migrainosus, not intractable TAKE 1 CAPSULE BY MOUTH EVERYDAY AT BEDTIME 90 Capsule 3 02/14/2023 Active Aimovig 70 MG/ML Subcutaneous Solution Auto-injector (Erenumab-aooe) Inject 1mL under the skin monthly. 3 mL 2 04/19/2023 Active diazePAM 10 MG Oral Tablet (Valium)Indication s:Migraine with aura and without status migrainosus, not [...] 24 hours. 10 Tablet 2 07/01/2023 Active Lasmiditan Succinate 100 MG Oral Tablet (Reyvow) Take 1 tablet at onset of migraine. Do not take more than 1 in 24 hours. 10 Tablet 2 11/30/2022 3 Discontinue d(Refill) documented as of this encounter (statuses as of 07/01/2023) Active Problems Problem Noted Date Diagnosed Date [...] as of this encounter (statuses as of 07/01/2023) Resolved Problems Problem Noted Date Diagnosed Date Resolved Date BCC right anterior shoulder 03/201003/19/2010 04/21/2017 documented as of this encounter (statuses as of 07/01/2023) Immunizations Name Administration Dates Next Due COVID-19 [...] on file documented as of this encounter Miscellaneous Notes * Telephone Encounter - Sandra Menard MD - 07/01/2023 7:40 AM ESTSigned Prescriptions: Disp Refills Lasmiditan Succinate 100 MG Oral Tablet (R*10 Tab*2 Sig: Take 1 tablet at onset of migraine. Do not take more than 1 in 24 hours. Authorizing Provider: SANDRA MENARD * Telephone Encounter - Alayna Baig LPN - 06/30/2023 12:59 PM ESTPending Prescriptions: Disp Refills Lasmiditan Succinate 100 MG Oral Tablet (R*10 Tab*2 Sig: Take 1tablet at onset of migraine. Do not take more than 1 in 24 hours. documented in this encounter Plan of Treatment Upcoming Encounters Date Type Department Care Team (Late st Contact Info) Description 08/16/2023 3:30 PM EST Office Visit [facility] [address] Catarina Jiménez PA-C 21 [place] [address] 01/31/2024 1:30 PM EDT Imaging Radiology [address] [place] [address] 04/26/2024 3:45 PM EDT Office Visit [facility] 200 [facility] [place] [address] Cary Meade MD [address] [place] [address] Health Maintenance Due Date Last Done Comments Depression Screening 1960 Albumin/Creatinine Ratio 1966 DTaP,Tdap,and Td Vaccines (1 - Tdap) 1967 Zoster Vaccines (1 of 2) 1998 Pneumococcal Vaccine: 65+ Years (1 - PCV) 2013 *BASELINE EKG FOR HTN 08/10/2021 COVID-19 Vaccine (4 - 2022-24 season) 2023 06/16/2021, 10/01/2020, 09/03/2020 Influenza Vaccine (FLU shot) (#1) 2023 GFR 04/20/2024 04/20/2023, 12/30, 01/25/2022, Additional history exists DXA Scan 05/13/2027 05/13/2020 Colorectal Cancer Screening Discontinued Fecal Occult Blood Test Discontinued 06/04/20, 08/16/2008, 10/12/2007 Cologuard Discontinued Colonoscopy Discontinued GARDASIL-HPV [...] Not on filedocumented as of this encounter Care Teams Hair Dresser Relationship Specialty Start Date End Date Bessy Wang MD [address] [place] [address] [place] [address] PCP - General 07/16/1999 documented as of this encounter
--- OUTSIDE RECORDS SUMMARY | 2023-10-11 09:27 | External Medical Summary | Summary of Care ---
Author Name Unknown Organization [facility] Address [address] [facility] [place] [address] Phone [phone] Care Team Providers Care Car Unloader Name Role Phone Bessy Wang MD Primary Care Provider [phone] [phone] Reason for Visit * Reason Comments Outpatient Testing Encounter Details Date Type Department Care Team (Late st Contact Info) Description 08/15/2023 3:20 PM EST Laboratory Laboratory [address] [place] [phone] [place] [address] HTN, goal below 140/90; Hematuria, gross; Screening [...] Description 01/31/2024 1:30 PM EDT Imaging Radiology [address] [place] [address] 04/26/2024 3:45 PM EDT Office Visit Dermatology [facility] 200 [facility] [place] [address] Cary Meade MD [address] [place] [address] Pending Results Name Type Priority Associated Diagnoses [...] deficiency documented in this encounter Care Teams Car Unloader Relationship Specialty Start Date End Date Bessy Wang MD [address] [place] [address] [place] [address] PCP - General 07/16/1999 documented as of this encounter
--- OUTSIDE RECORDS SUMMARY | 2023-10-11 09:27 | External Medical Summary | Summary of Care ---
Author Name Unknown Organization [facility] [address] [facility] [address] Phone [phone] Care Team Providers Care Pega Developer Name Role Phone Bessy Wang MD Primary Care Provider [phone] [phone] Reason for Visit * Reason Onset Date Comments Medication Refill 05/25/2023 Encounter Details Date Type Department Care Team (Late st Contact Info) Description 05/25/2023 Refill Neurology [facility] [place] 200 [facility] [address] Catarina Jiménez PA-C 21 [facility] [place] [address] Allergies Active Allergy Reactions Criticality Noted Date Comments Levofloxacin 09/04/2014 tendinopathy Valproic Acid 02/25/2016 documented as of this encounter (statuses as of 05/25/2023) Medications Medication Sig Dispensed Refills Start Date [...] Pain, Mild. 60 Tablet 0 09/20/2022 Active Lasmiditan Succinate 100 MG Oral Tablet (Reyvow) Take 1 tablet at onset of migraine. Do not take more than 1 in 24 hours. 10 Tablet 2 11/30/2022 Active Amitriptyline HCl 10 MG Oral Tablet [...] at bedtime. 540 Tablet 1 05/25/2023 Active rOPINIRole HCl 0.5 MG Oral Tablet (Requip) Take 3 tablets at 5pm and 3 tablets at bedtime. 180 Tablet 3 05/02/2023 3 Discontinue d(Refill) documented as of this encounter (statuses as of 05/25/2023) Active Problems Problem Noted Date Diagnosed Date [...] as of this encounter (statuses as of 05/25/2023) Resolved Problems Problem Noted Date Diagnosed Date Resolved Date BCC right anterior shoulder 03/201003/19/2010 04/21/2017 documented as of this encounter (statuses as of 05/25/2023) Immunizations Name Administration Dates Next Due COVID-19 [...] encounter Miscellaneous Notes * Telephone Encounter - Catarina Jiménez PA-C - 05/25/2023 10:06 AM EDTSigned Prescriptions: Disp Refills rOPINIRole HCl 0.5 MG Oral Tablet (Requip) 540 Ta*1 Sig: Take 3 tablets at 5pm and 3 tablets at bedtime.Authorizing Provider: CATARINA JIMÉNEZ documented in this encounter Plan of Treatment Upcoming Encounters Date Type Department Care Team (Late st Contact Info) Description 06/16/2023 8:45 AM EST Office Visit Dermatology [facility] 200 [facility] [place] [address] Cary Meade MD 200 [facility] [place] [address] 08/16/2023 3:30 PM EST Office Visit Neurology [facility] 200 [facility] [place] [address] Catarina Jiménez PA-C 21 [facility] [place] [address] 01/31/2024 1:30 PM EDT Imaging Radiology [address] [place] [address] Health Maintenance Due Date Last Done Comments Depression Screening 1960 Albumin/Creatinine Ratio 1966 DTaP,Tdap,and Td Vaccines (1 - Tdap) 1967 Cologuard 1993 Colonoscopy 1993 Sigmoidoscopy 1993 Zoster Vaccines (1 of 2) 1998 Pneumococcal Vaccine: 65+ Years (1 - PCV) 2013 Colorectal Cancer Screening 06/04/2017 Fecal Occult Blood Test 06/04/2017 06/04/20 16, 08/16/2008, 10/12/2007 *BASELINE EKG FOR HTN 08/10/2021 COVID-19 Vaccine ( season) 2023 06/16/2021, 10/01/2020, 09/03/2020 Influenza Vaccine (FLU shot) (#1) 2023 Mammogram 01/29/2024 01/28/2023, 12/31, 01/06/2021, Additional history exists GFR 04/20/2024 04/20/2023, 12/30, 01/25/2022, Additional history exists DXA Scan 05/13/2027 05/13/2020 Lipid Panel 01/16/2028 01/15/2023, 12/31, 09/03/2019, Additional history exists GARDASIL-HPV IMMUNIZATION SERIES Aged Out No longer eligible based on patient's age to complete this topic Hepatitis B Aged Out No longer eligi ble based on patient's age to complete this topic MENINGOCOCCAL (MENACTRA/MENVEO) Aged Out No longer eligible based on patient's age to complete this topic documented as of this encounter Medical Devices Not on filedocumented as of this encounter Care Teams Pega Developer Relationship Specialty Start Date End Date Bessy Wang MD [address] [place] [address] [place] [address] PCP - General 07/16/1999 documented as of this encounter
--- OUTSIDE RECORDS SUMMARY | 2023-10-11 09:27 | External Medical Summary | Summary of Care ---
Author Name Unknown Organization [facility] Address [address] [facility] [place] [address] Phone [phone] Care Team Providers Care Floral Manager Name Role Phone Bessy Wang MD Primary Care Provider [phone] [phone] Reason for Visit * Reason Comments Outpatient Testing Encounter Details Date Type Department Care Team (Late st Contact Info) Description 08/15/2023 3:20 PM EST Laboratory Laboratory [address] [place] [phone] [place] [address] HTN, goal below 140/90; Hematuria, gross; Screening [...] Description 01/31/2024 1:30 PM EDT Imaging Radiology [address] [place] [address] 04/26/2024 3:45 PM EDT Office Visit Dermatology [facility] 200 [facility] [place] [address] Cary Meade MD [address] [place] [address] Pending Results Name Type Priority Associated Diagnoses Date /Time URINALYSIS WITH MICROSCOPIC EXAM Lab Routine HTN, goal below 140/90 Hematuria, gross Screening for iron deficiency anemia Vitamin D deficiency 08/15/2023 3:21 PM EST COMPREHENSIVE METABOLIC PANEL Lab Routine HTN, goal [...] FOR HTN 08/10/2021 COVID-19 Vaccine (4 - 2022- season) 2023 06/16/2021, 10/01/2020, 09/03/2020 Influenza Vaccine [...] deficiency documented in this encounter Care Teams Floral Manager Relationship Specialty Start Date End Date Bessy Wang MD [address] [place] [address] [place] [address] PCP - General 07/16/1999 documented as of this encounter
--- OUTSIDE RECORDS SUMMARY | 2023-10-11 09:27 | External Medical Summary | Summary of Care ---
Author Name Unknown Organization [facility] Address [address] [facility] [facility] [address] Phone [phone] Care Team Providers Care Area Captain Name Role Phone Bessy Wang MD Primary Care Provider [phone] Reason for Visit * Reason Comments Follow Up Patient here for a s kin check with hx of NMSC and AK. She has a new spot behind her right ear that is rough and raised. She has scaly patches around her eyes. Encounter Details Date Type Department Care Team (Late st Contact Info) Description 06/16/2023 8:45 AM EST Office Visit Dermatology [facility] [place] [address] [place] [address] Cary Meade MD [address] [facility] [place] [address] Actinic keratosis*; Seborrheic keratosis; History of nonmelanoma skin cancer; Other skin changes due to chronic exposure to nonionizing radiation Allergies Active Allergy Reactions Criticality Noted Date Comments Levofloxacin 09/04/2014 tendinopathy Valproic Acid 02/25/2016 documented as of this encounter (statuses as of 2023) Medications Medication Sig Dispensed Refills Start Date [...] at bedtime. 540 Tablet 1 05/25/2023 Active documented as of this encounter (statuses as of 2023) Active Problems Problem Noted Date Diagnosed Date [...] as of this encounter (statuses as of 2023) Resolved Problems Problem Noted Date Diagnosed Date Resolved Date BCC right anterior shoulder 03/201003/19/2010 04/21/2017 documented as of this encounter (statuses as of 2023) Immunizations Name Administration Dates Next Due COVID-19 [...] on file documented as of this encounter Patient Instructions * Patient Instructions* Cary Meade MD - 06/16/2023 8:59 AM EST SUNSCREEN USE AND SUN PROTECTION: 1. The best protection is sun avoidance. Seek shade if you can, especially between 9am to 5pm (peaksun hours). 2. Use sunscreen with a Sun Protection Factor (SPF) of 30 or more that protects from Ultraviolet A (UVA) and Ultraviolet B (UVB) wavelength light. This is referred to as broad spectrum sun protection. Unfortunately, even though the protection is broad it is not complete, therefore making sun avoidance the best protection. UVB and UVA have both been implicated in causing skin cancers. Older sunscreens only protected from UVB and sunscreens with added UVA protection should contain Titanium dioxide, Zinc oxide, Mexoryl or Parsol 1789, also known as Avobenzone. 3. Use sun protection daily. Apply 20-30 minutes before going out and reapply every 2 hours. No sunscreen is truly water ''proof'' and it will wash away with sweat, swimming and rubbing. 4. Wear tightly woven, loose fitting (cooler) long sleeved clothing, UV-blocking clothing and sun glasses (eyes need protection as well) and wide-brimmed hatwear (no straw hats with holes because light still gets through). HOW TO CHECK YOUR MOLES: 1. Check moles every month and have a relative/friend check your back if possible. The use of a handheld mirror can help as well. The most common place for melanoma in women are the back and legs, and for men is the back. 2. Look for the ABCD's of melanoma: Asymmetry (strange shape - not round or oval), Borders (notched, scalloped or irregular edges), Color (very black or multi-colored), Diameter (size greater than 5mm or the size greater than a pencil eraser). 3. Changes in old moles and growths of new ones in relation to the ABCD's are the most important factors. 4. Some people have many moles that fit the ABCD criteria. At times the best thing is to look for the ''Ugly Duckling'' mole - the one that stands out the most. 5. If there are any questions on a mole please do not hesitate in calling our office at [phone] to have it evaluated. documented in this encounter Progress Notes * Cary Meade MD - 06/16/2023 8:59 AM EST SUBJECTIVE: History of Present Illness: Karla Edwards is a 72 year old female seen today for follow up skin check. Lesions of concern include new rough spot behind her right ear and two scaly plaques at bilateral lateral brows. DERMATOLOGIC HISTORY: H/o skin cancer: SCC in situ on the left chest 03/20 BCC on the central back 05/19 SCC on the left medial lower leg 04/17-treated by Dr. River with Mohs surgery BCC on the right shoulder 01/08 SCC left anterior leg 04/11 Treated left upper cutaneous lip with efudex August REVIEW OF SYSTEMS: SKIN: No other new or changing moles. HEME/LYMPH: No new or enlarging lumps or bumps. MEDICA TIONS: Current Outpatient Medications Medication Sig Dispense Refill Esomeprazole Magnesium 40 MG CPDR Take 1 Capsule by mouth daily before breakfast. acetaminophen (TYLENOL) 500 MG Tablet Take 2 Tablets by mouth in the morning and 2 Tablets at noon and 2 Tablets before bedtime. Multiple Vitamins-Minerals (CENTRUM ADULTS) TABS Take 1 Tab by mouth. Losartan Potassium 100 MG Tablet Take 1 Tablet by mouth in the morning. Dexlansoprazole 60 MG Oral Capsule Delayed Release Take by mouth 30 mg daily . metoprolol succinate XL (TOPROL XL) 25 MG TB24 Take 2 Tablets by mouth in the morning. clopidogrel (PLAVIX) 75 MG Tablet Take 1 Tablet by mouth in the morning. Aspirin 81 MG Tablet Take 1 Tablet by mouth in the morning. atorvaSTATin (LIPITOR) 40 MG Tablet Take 1 Tablet by mouth in the morning. amLODIPine (NORVASC) 2.5 MG Tablet Take 1 Tablet by mouth in the morning. In am . Estrogens, Conjugated 0.625 MG/GM Vaginal Cream (Premarin) Administer 1 g into the vagina in the morning. 1 application every other night. DULoxetine HCl 40 MG Oral Capsule Delayed Release Particles (Irenka) TAKE 1 CAPSULE BY MOUTH EVERY DAY IN THE MORNING Mupirocin 2 % External Ointment (Bactroban) Apply to wound on right lower leg daily 22 g 0 Melatonin 5 MG Oral Capsule Take 1 Capsule by mouth at bedtime. Diclofenac Sodium 1 % External Gel Apply topically to affected area . Restful Legs Sublingual Tablet Sublingual Place under the tongue . Fluorouracil 5 % External Cream (Efudex) apply to affected area (left upper cutaneous lip) twice daily for 2-3 weeks 40 g 0 Hydrocortisone 2.5 % External Ointment Apply to affected area on lip twice daily as needed 30 g 0 HYDROcodone-Acetaminophen 5-325 MG Oral Tablet Take 1 Tablet by mouth every 6 hours as needed for Pain, Mild. 60 Tablet 0 Lasmiditan Succinate 100 MG Oral Tablet (Reyvow) Take 1 tablet at onset of migraine. Do not take more than 1 in 24 hours. 10 Tablet 2 Amitriptyline HCl 10 MG Oral Tablet (Elavil) TAKE 3 TABLETS BY MOUTH AT BEDTIME FOR 2 WEEKS MAY INCREASE TO 4 AT BEDTIME IF NEEDED 360 Tablet 1 tiZANidine HCl 2 MG Oral Capsule TAKE 1 CAPSULE BY MOUTH EVERYDAY AT BEDTIME 90 Capsule 3 Aimovig 70 MG/ML Subcutaneous Solution Auto-injector (Erenumab-aooe) Inject 1mL under the skin monthly. 3 mL 2 diazePAM 10 MG Oral Tablet (Valium) One every 4-6 hrs as needed for anxiety caused by headaches-maxof 2 per day 30 Tablet 5 rOPINIRole HCl 0.5 MG Oral Tablet (Requip) Take 3 tablets at 5pm and 3 tablets at bedtime. 540 Tablet 1 No current facility-administered medications for this visit. ALLERG IES: Levofloxacin and Valproic acid OBJECTIVE: GEN: Healthy, alert, no distress, appears oriented, pleasant, and cooperative. SKIN: Detailed exam of hair, face including lids and lips, neck, back, chest, abdomen, buttocks, right and left upper extremities, right and left lower extremities including the nails and digits completed and are normal except: 1. Multiple thin pink papules and plaques with rough gritty scale located on the left brow, left suprabrow, and right anterior lower leg 2. Brown keratotic papule at right postauricular area 3. Ramos/light brown plaque lateral to right lateral brow 4. Scars on chest, back, left leg, and right shoulder, without evidence of recurrence ASSESS MENT/PLAN: 1. Actinic Keratoses distributed over the left brow, left suprabrow, and right anterior lower leg. - A total of 3 lesion(s) were treated with cryotherapy. - The patient was counseled on the premalignant nature of these lesions, and they were treated withcryotherapy today which the patient is agreeable to. The risks, benefits, indications, alternatives, and complications were discussed, and consent was obtained. - If no resolution in 3-4 weeks patient to notify clinic for re-evaluation - if lesion on right lower leg persists, will consider biopsy 2. Seborrheic keratoses, right postauricular area and lateral to right lateral brow - The benign nature of these lesions was discussed with the patient and that no treatment is indicated today (lesions can be removed if they become excessively irritated or symptomatic) 3. History of nonmelanoma skin cancer. Heliodermatosis/chronic sun damage not at treatment goal/Diffuse actinic damage/other skin changes due to chronic exposure to nonionizing radiation. - Full skin check performed. No evidence of recurrence at previously treated sites of nonmelanoma skin cancer. - Recommended sunscreen (over the counter broad-spectrum sun protection factor 30+ sunscreen daily)/photoprotection. Informational handout reviewing sunscreen/photoprotection and self monitoring for melanoma was provided to patient at today's visit. - return in 6 months or sooner for any new or changing lesions of concern. Follow-up: 6 months The patient was encouraged to contact me with any further questions or concerns. Cary Meade MD 06/16/2023 documented in this encounter Nursing Notes * Lucrecia Ramos LPN - 06/16/2023 8:45 AM EST Patient identified by name and date of . Do you have any concerns about pain management for today's visit? No Living Will or Advance Directive for Health Care as noted on problem list. [facility] is a way you can talk to your provider online through e-mail. Would you like to sign up? I can activate it for you? ALREADY ACTIVE Chief Complaint Patient presents with Follow Up Patient here for a skin check with hx of NMSC and AK. She has a new spot behind her right ear that is rough and raised. She has scaly patches around her eyes. documented in this encounter Plan of Treatment Upcoming Encounters Date Type Department Care Team (Late st Contact Info) Description 08/16/2023 3:30 PM EST Office Visit Neurology [place] [address] [facility] [place] [address] Catarina Jiménez PA-C [address] [place] [address] 01/31/2024 1:30 PM EDT Imaging Radiology [address] [place] [address] 04/26/2024 3:45 PM EDT Office Visit Dermatology [facility] [place] [address] [facility] [place] [address] Cary Meade MD [address] [place] [address] Health Maintenance Due Date Last Done Comments Depression Screening 1960 Albumin/Creatinine Ratio 1966 DTaP,Tdap,and Td Vaccines (1 - Tdap) 1967 Zoster Vaccines (1 of 2) 1998 Pneumococcal Vaccine: 65+ Years (1 - PCV) 2013 *BASELINE EKG FOR HTN 08/10/2021 COVID-19 Vaccine ( - 2022- season) 2023 06/16/2021, 10/01/2020, 09/03/2020 [...] as of this encounter Visit Diagnoses Diagnosis Actinic keratosis- Primary Seborrheic keratosis Other seborrheic keratosis History of nonmelanoma skin cancer Personal history of other malignant neoplasm of skin Other skin changes due to chronic exposure to nonionizing radiation documented in this encounter Care Teams Area Captain Relationship Specialty Start Date End Date Bessy Wang MD [address] [place] [address] [place] [id number] PCP - General 07/16/1999 documented as of this encounter
--- OUTSIDE RECORDS SUMMARY | 2023-10-11 09:27 | External Medical Summary | Summary of Care ---
Author Name Unknown Organization [facility] Address [address] [facility] [place] [address] Phone [phone] Care Team Providers Care Pamphlet Distributor Name Role Phone Bessy Wang MD Primary Care Provider [phone] Reason for Visit * Reason Comments Return Neuro Encounter Details Date Type Department Care Team (Late st Contact Info) Description 09/15/2023 9:00 AM EST Office Visit Neurology [facility] [address] [facility] [place] [address] Catarina Jiménez PA-C [address] [facility] [place] [address] Migraine with aura and without status migrainosus, not intractable*; Restless leg syndrome Allergies Active Allergy Reactions Criticality Noted Date Comments Levofloxacin 09/04/2014 tendinopathy Valproic Acid 02/25/2016 documented as of this encounter (statuses as of 09/15/2023) Medications Medication Sig Dispensed Refills Start Date [...] Active amLODIPine (NORVASC) 2.5 MG Tablet Take 2 Tablets by mouth in the morning. In am [...] leg daily 22 g 0 12/22/2021 Active Additional Information Patient not taking.Reported on 09/15/2023 Melatonin 5 MG Oral Capsule Take 1 [...] as needed 30 g 0 08/16/2022 Active Additional Information Patient not taking.Reported on 09/15/2023 HYDROcodone-Acetami nophen 5-325 MG Oral Tablet Take [...] 24 hours. 10 Tablet 2 07/01/2023 Active B-12 1000 MCG Oral Tablet Take by mouth every other day. 0 Active Magnesium 400 MG Oral Tablet Take by mouth. 0 Active traZODone HCl 50 MG Oral Tablet (Desyrel) TAKE ONE HALF TO 1 TABLET BY MOUTH AFTER SUPPER 0 08/18/2023 Active documented as of this encounter (statuses as of 09/15/2023) Active Problems Problem Noted Date Diagnosed Date [...] as of this encounter (statuses as of 09/15/2023) Resolved Problems Problem Noted Date Diagnosed Date Resolved Date BCC right anterior shoulder 03/201003/19/2010 04/21/2017 documented as of this encounter (statuses as of 09/15/2023) Immunizations Name Administration Dates Next Due COVID-19 [...] on file documented as of this encounter Last Filed Vital Signs Vital Sign Reading Time Taken Comments Blood Pressure 126/76 09/15/2023 9:00 AM EST Pulse 74 09/15/2023 9:00 AM EST Temperature 35.9 C (96.6 F) 09/15/2023 9:00 AM ES T Respiratory Rate 16 09/15/2023 9:00 AM EST Oxygen Saturation - - Inhaled Oxygen Concentration - - Weight 83.6 kg (184 lb 3.2 oz) 09/15/2023 9:00 A M EST Height - - Body Mass Index 33.69 08/19/2020 2:09 PM EST documented in this encounter Progress Notes * Catarina Jiménez PA-C - 09/15/2023 9:00 AM EST HISTORY & PHYSICAL EXAMINATION - NEUROLOGY Name: Karla Edwards Date: 09/14/2023 Time: 11:50 AM Chief Complaint Patient presents with Return Neuro SUBJECTIVE: Karla Edwards is a 73 year old female with chronic migraine with aura, RLS, and history of TIA. She was last seen on 02/10/23. At that time having 1 migraine/week relieved with Reyvow. Switched from Aimovig to Emgality due to HTN. High copay with Emgality and Ajovy. Elected to stay on Aimovig with close monitoring of BP. Due to stress regarding her 's health, she began experiencing panic attacks and her physician increased amitriptyline to 4 tablets nightly. Started trazodone. 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 With all the above changes, she has noticed a significant decrease in headaches, even with increased stress. Had 3 weeks headache free in July. Only had 2 headaches in August. Restless legs are fairly well controlled. Can go 5-6 nights without symptoms, then have a bad night. Takes Ropinirole 1.5mg at 5pm, 1.5mg at 11pm; prior tried Sinemet and gabapentin without relief. If she has a bad night will take an OTC sublingual tablet and walk around for 20 minutes. Previous medications: ELAN block, Topamax Imitrex, Zomig, Ubrelvy, Nurtec Triptans contraindicated due to history of TIA She has a longstanding history of migraine with aura. Migraines started when she was in high school. Would experience them 3-4 days/week, severe, accompanied by nausea. Since starting Aimovig over 1 year ago, now has migraine approximately 1x/week. Sometimes accompanied by hand tingling or precededby visual aura of pinholes in black paper x 20 minutes. Develops tightness in her neck. Triptans contraindicated Allergies: Levofloxacin and Valproic acid Problem list: Patient Active Problem List Diagnosis Code Headache R51.9 Irritable bowel syndrome K58.9 ADVANCE DIRECTIVE INFORMATION Status post total bilateral knee replacement Z96.653 Essential hypertension with goal blood pressure less than 140/90 I10 Migraine without status migrainosus, not intractable G43.909 History of nonmelanoma skin cancer Z85.828 Past Medical History: Past Medical History: Diagnosis Date GERD (gastroesophageal reflux disease) Headache(784.0) Headache NOS History of GI bleed due to NSAIDS? HTN (hypertension) Hyperlipidemia Irritable bowel syndrome Pulmonary embolus (HCC) 2013 Current Outpatient Medications: Current Outpatient Medications Medication Sig Dispense Refill acetaminophen (TYLENOL) 500 MG Tablet Take 2 [...] morning. amLODIPine (NORVASC) 2.5 MG Tablet Take 2 Tablets by mouth in the morning. In am . DULoxetine HCl 40 MG Oral Capsule Delayed Release Particles (Irenka) TAKE 1 CAPSULE BY MOUTH EVERY DAY IN THE MORNING Restful Legs Sublingual Tablet Sublingual Place under the tongue . HYDROcodone-Acetaminophen 5-325 MG Oral Tablet Take 1 Tablet by mouth every 6 hours as needed for Pain, Mild. 60 Tablet 0 Amitriptyline HCl 10 MG Oral Tablet (Elavil) [...] 3 tablets at bedtime. 540 Tablet 1 Lasmiditan Succinate 100 MG Oral Tablet (Reyvow) Take 1 tablet at onset of migraine. Do not take more than 1 in 24 hours. 10 Tablet 2 B-12 1000 MCG Oral Tablet Take by mouth every other day. Magnesium 400 MG Oral Tablet Take by mouth. traZODone HCl 50 MG Oral Tablet (Desyrel) TAKE ONE HALF TO 1 TABLET BY MOUTH AFTER SUPPER Esomeprazole Magnesium 40 MG CPDR Take 1 Capsule by mouth daily before breakfast. (Patient not taking: Reported on 09/15/2023) Estrogens, Conjugated 0.625 MG/GM Vaginal Cream (Premarin) Administer 1 g into the vagina in the morning. 1 application every other night. (Patient not taking: Reported on 09/15/2023) Mupirocin 2 % External Ointment (Bactroban) Apply to wound on right lower leg daily (Patient not taking: Reported on 09/15/2023) 22 g 0 Melatonin 5 MG Oral Capsule Take 1 Capsule by mouth at bedtime. (Patient not taking: Reported on 09/15/2023) Diclofenac Sodium 1 % External Gel Apply topically to affected area . Fluorouracil 5 % External Cream (Efudex) apply to affected area (left upper cutaneous lip) twice daily for 2-3 weeks 40 g 0 Hydrocortisone 2.5 % External Ointment Apply to affected area on lip twice daily as needed (Patientnot taking: Reported on 09/15/2023) 30 g 0 No current facility-administered medications for this visit. Family History: No family history on file. SOCIAL HISTORY: Social History Tobacco Use Smoking status: Never Smokeless tobacco: Never Vaping Use Vaping Use: Never used Substance Use Topics Alcohol use: No Drug use: No REVIEW OF SYSTEMS: As above OBJECTIVE: Physical Examination: BP 126/76 | Pulse 74 | Temp 35.9 C (96.6 F) (Tympanic) | Resp 16 | Wt 83.6 kg (184 lb 3.2 oz) |BMI 33.69 kg/m | BSA 1.91 m General appearance: healthy, alert, no distress Physical Exam: Constitutional: Appearance normally developed,well nourished,no deformities,well groomed Head and face: normocephalic,atraumatic Respiratory: normal effort,clear to auscultation Cardiovascular: normal heart sounds and regular rhythm Psychiatric: normal judgement and insight,normal mood,normal affect NEUROLOGIC EXAMINATION: Mental Status Exam: alert,oriented to time, place, person,normal recent memory,normal remote memory,normal attention span,normal concentration,normal language,normal fund of knowledge Cranial Nerves: CN 3, 4, 6 - Extra-ocular Movements Intact,no nystagmus CN 5 - Facial sensation intact and equal bilaterally CN 7 - no facial assymetry CN 8 - hearing grossly intact Muscle exam: Torn tendon in R shoulder Reflexes: Biceps BR Patellar Right 2+ 2+ 2+ Left 2+ 2+ 2+ LABORATORY: Results for orders placed or performed in visit on 08/15/23 CBC Result Value Ref Range WBC 6.21 4.00 - 10.80 K/uL RBC 4.74 3.85 - 5.15 M/uL HGB 13.2 12.0 - 15.3 g/dL HCT 41.9 36.0 - 45.2 % MCV 88.4 81.5 - 97.5 fL MCH 27.8 27.0 - 34.0 pg MCHC 31.5 32.0 - 36.0 g/dL RDW 13.8 11.5 - 15.5 % PLT 262 140 - 400 K/uL MPV 11.2 6.6 - 11.1 fL nRBCs 0 <=0 /100 WBCs Results for orders placed or performed in visit on 01/15/23 LIPID PANEL WITH DIRECT LDL IF TG IS HIGH Result Value Ref Range Triglycerides 135 <=174 mg/dL Cholesterol 148 <200 mg/dL HDL Cholesterol 50 >49 mg/dL Non-HDL Cholesterol 98 <=159 mg/dL LDL Cholesterol 71 <=129 mg/dL No results found for: "[id number]" No results found for: "[id number]" No results found for: "[id number]" 25OH VITAMIN D TOTAL (ng/mL) Date Value 09/03/2019 37 03/23/2019 45 08/28/2018 33 25-Hydroxy Vitamin D (ng/mL) Date Value 08/15/2023 39 01/15/2023 34 01/25/2022 32 Vitamin D Level Interpretation deficient: <20 ng/ml insufficient: 20-30 ng/ml normal: 31-100 ng/ml Review of prior Studies: ASSESSMENT/PLAN: Karla Edwards is a 73 year old female with chronic migraine with aura, RLS, and history of TIA. Headaches and RLS are fairly well controlled. Continue Aimovig with PCP monitoring BP. Continue Reyvow for rescue. Amitriptyline increased to 40mg by PCP due to panic attacks. Tizanidine increased to 4mg by GI due to spastic colon. Continue ropinirole for RLS. Not to exceed 4mg daily. If becomes ineffective consider rotigotine patch. Follow up in 6 months or sooner if needed. I spent a total of 35 minutes on the date of service in preparation, delivery, and documentation of the care provided to Karla Edwards. Alejandra Menard MD available for direct consultation. Catarina Jiménez PA-C, Neurology [address] [place] [address] 09/15/23 9:44 AM documented in this encounter Nursing Notes * Bernarda Lobo MED ASSIST - 09/15/2023 8:55 AM EST Chief Complaint Patient presents with Return Neuro documented in this encounter Plan of Treatment Upcoming Encounters Date Type Department Care Team (Late st Contact Info) Description 01/31/2024 1:30 PM EDT Imaging Radiology [address] [place] [address] 03/20/2024 3:30 PM EDT Office Visit Neurology [facility] [address] [place] [address] Catarina Jiménez PA-C [address] [facility] [place] [address] 04/26/2024 3:45 PM EDT Office Visit Dermatology [facility] [address] [facility] [place] [address] Cary Meade MD [address] [place] [address] Health Maintenance Due Date Last Done Comments Depression Screening 1960 Albumin/Creatinine Ratio 1966 DTaP,Tdap,and Td Vaccines (1 - Tdap) 1967 Zoster Vaccines (1 of 2) 1998 Pneumococcal Vaccine: 65+ Years (1 - PCV) 2013 *BASELINE EKG FOR HTN 08/10/2021 COVID-19 Vaccine ( - 2022- season) 2023 06/16/2021, 10/01/2020, 09/03/2020 Influenza Vaccine (FLU shot) (#1) 2023 GFR 08/15/2024 08/15/2023, 2 , 01/15/2023, Additional history exists DXA Scan 05/13/2027 05/13/2020 [...] as of this encounter Visit Diagnoses Diagnosis Migraine with aura and without status migrainosus, not intractable- Primary Migraine with aura, without mention of intractable migraine without mention of status migrainosus Restless leg syndrome Restless legs syndrome (RLS) documented in this encounter Care Teams Pamphlet Distributor Relationship Specialty Start Date End Date Bessy Wang MD [address] [place] [address] [place] [id number] PCP - General 07/16/1999 documented as of this encounter
--- OUTSIDE RECORDS SUMMARY | 2023-10-11 09:27 | External Medical Summary ---
Author Name Unknown Address Unknown Organization [id number]:[facility] - [address] [place] [address] Laboratory Report Ordering Provider Test Date Status HUSSEIN HARMON 09/23/2023 13:09:34 Final Observation Date Value Abnormality Reference (Units) Status Bacteria identified in Specimen by Culture 09/23/2023 13:09:34 No significant growth Final Test: Culture, Urine, Quanti tative
Specimen Source: Urine, Clean Catch
Specimen Type: Urine
Specimen Date: 09/23/2023 1:09 PM
Result Date: 09/25/2023 7:19 AM
Result Status: Final result
Resulting Lab: [facility]
[address]
[place] [address]

CULTURE

No significant growth

null Performing Location [facility] - [address] [facility] [address]
--- OUTSIDE RECORDS SUMMARY | 2023-10-11 09:27 | External Medical Summary | Summary of Care ---
Author Name Unknown Organization [facility] Address [address] [facility] [place] [address] Phone [phone] Care Team Providers Care Automation And Controls Supervisor Name Role Phone Bessy Wang MD Primary Care Provider [phone] [phone] Reason for Visit * Reason Onset Date Comments Medication Refill 10/04/2023 Encounter Details Date Type Department Care Team (Late st Contact Info) Description 10/04/2023 Refill Neurology [facility] Bijal [place] [address] [place] [address] Zay Bonilla MD [address] [facility] [address] Migraine with aura and without status migrainosus, not intractable Allergies Active Allergy Reactions Criticality Noted Date Comments Levofloxacin 09/04/2014 tendinopathy Valproic Acid 02/25/2016 documented as of this encounter (statuses as of 10/04/2023) Medications Medication Sig Dispensed Refills Start Date [...] Additional Information Patient not taking.Reported on 09/15/2023 HYDROcodone-Acetam inophen 5-325 MG Oral Tablet Take 1 Tablet by mouth every 6 hours as needed for Pain, Mild. 60 Tablet 0 09/20/2022 Active Amitriptyline HCl 10 MG Oral Tablet (Elavil) TAKE 3 TABLETS BY MOUTH AT BEDTIME FOR 2 WEEKS MAY INCREASE TO 4 AT BEDTIME IF NEEDED 360 Tablet 1 01/07/2023 Active Aimovig 70 MG/ML Subcutaneous Solution Auto-injector (Erenumab-aooe) Inject 1mL under the skin monthly. 3 mL 2 04/19/2023 Active rOPINIRole HCl 0.5 MG Oral Tablet [...] BY MOUTH AFTER SUPPER 0 08/18/2023 Active tiZANidine HCl 2 MG Oral CapsuleIndications :Migraine with aura and without status migrainosus, not intractable TAKE 1 CAPSULE BY MOUTH TWICE A DAY 60 Capsule 3 09/19/2023 Active diazePAM 10 MG Oral Tablet (Valium)Indication s:Migraine with aura and without status migrainosus, not intractable One every 4-6 hrs as needed for anxiety caused by headaches-max of 2 per day 30 Tablet 5 10/04/2023 Active diazePAM 10 MG Oral Tablet (Valium)Indication s:Migraine with aura and without status migrainosus, not intractable One every 4-6 hrs as needed for anxiety caused by headaches-max of 2 per day 30 Tablet 5 05/11/2023 Discontinue d(Refill) documented as of this encounter (statuses as of 10/04/2023) Active Problems Problem Noted Date Diagnosed Date [...] as of this encounter (statuses as of 10/04/2023) Resolved Problems Problem Noted Date Diagnosed Date Resolved Date BCC right anterior shoulder 03/201003/19/2010 04/21/2017 documented as of this encounter (statuses as of 10/04/2023) Immunizations Name Administration Dates Next Due COVID-19 [...] encounter Miscellaneous Notes * Telephone Encounter - Zay Bonilla MD - 10/04/2023 3:15 PM ESTSigned Prescriptions: Disp Refills diazePAM 10 MG Oral Tablet (Valium) 30 Tab*5 Sig: One every 4-6hrs as needed for anxiety caused by headaches-max of 2 per dayAuthorizing Provider: ZAY BONILLA-- * Telephone Encounter - Zay Bonilla MD - 10/04/2023 3:15 PM ESTSigned Prescriptions: Disp Refills diazePAM 10 MG Oral Tablet (Valium) 30 Tab*5 Sig: One every 4-6 hrs as needed for anxiety caused by headaches-max of 2 per day Authorizing Provider: ZAY BONILLA * Telephone Encounter - Elaine Bishop LPN - 10/04/2023 1:15 PM ESTPending Prescriptions: Disp Refills diazePAM 10 MG Oral Tablet (Valium) 30 Tab*5 Sig: One every 4-6 hrs as needed for anxiety caused by headaches-max of 2 per day * Telephone Encounter - Catarina Jiménez PA-C - 10/04/2023 11:51 AM EST Pending Prescriptions: Disp Refills diazePAM 10 MG Oral Tablet (Valium) 30 Tab*5 Sig: One every 4-6 hrs as needed for anxiety caused by headaches-max of 2 per day * Telephone Encounter - Elaine Bishop LPN - 10/04/2023 11:02 AM ESTPending Prescriptions: Disp Refills diazePAM 10 MG Oral Tablet (Valium) 30 Tab*5 Sig: One every 4-6 hrs as needed for anxiety caused by headaches-max of 2 per day documented in this encounter Plan of Treatment Upcoming Encounters Date Type Department Care Team (Late st Contact Info) Description 01/31/2024 1:30 PM EDT Imaging Radiology [address] [place] [address] 03/20/2024 3:30 PM EDT Office Visit Neurology [facility] [address] [place] [address] Catarina Jiménez PA-C [address] [place] [address] 04/26/2024 3:45 PM EDT Office Visit Dermatology [facility] [address] [place] [address] Cary Meade MD [address] [place] [address] Health Maintenance Due Date Last Done Comments Depression Screening 1960 Albumin/Creatinine Ratio 1966 DTaP,Tdap,and Td Vaccines (1 - Tdap) 1967 Zoster Vaccines (1 of 2) 1998 Pneumococcal Vaccine: 65+ Years (1 of 1 - PCV) 2013 *BASELINE EKG FOR HTN 08/10/2021 COVID-19 Vaccine ( season) 2023 06/16/2021, 10/01/2020, 09/03/2020 Influenza Vaccine (FLU shot) (#1) 2023 GFR 08/15/2024 08/15/2023, 04/02, 01/15/2023, Additional history exists DXA Scan 05/13/2027 [...] aura and without status migrainosus, not intractable Migraine with aura, without mention of intractable migraine without mention of status migrainosus documented in this encounter Care Teams Automation And Controls Supervisor Relationship Specialty Start Date End Date Bessy Wang MD [address] [place] [address] [place] [address] PCP - General 07/16/1999 documented as of this encounter
--- OUTSIDE RECORDS SUMMARY | 2023-10-11 09:27 | External Medical Summary ---
Author Name Unknown Address Unknown Organization [id number]:LAB[facility]ATORY [facility] [place] - [address] [place] [address] [place] [address] Laboratory Report Ordering Provider Test Date Status HUSSEIN HARMON 08/15/2023 15:21:38 Final Observation Date Value Abnormality Reference (Units ) Status WBC, Total 08/15/2023 15:21:38 6.21 4.00-10.80 (K/uL) Final RBC 08/15/2023 15:21:38 4.74 3.85-5.15 (M/uL) Final Hemoglobin 08/15/2023 15:21:38 13.2 12.0-15.3 (g/dL) Final HCT 08/15/2023 15:21:38 41.9 36.0-45.2 (%) Final MCV 08/15/2023 15:21:38 88.4 81.5-97.5 (fL) Final MCH 08/15/2023 15:21:38 27.8 27.0-34.0 (pg) Final MCHC 08/15/2023 15:21:38 31.5 32.0-36.0 (g/dL) Final RDW 08/15/2023 15:21:38 13.8 11.5-15.5 (%) Final Platelets 08/15/2023 15:21:38 262 140-400 (K/uL) Final MPV 08/15/2023 15:21:38 11.2 6.6-11.1 (fL) Final Nucleated erythrocytes/100 leukocytes [Ratio] in Blood by Automated count 08/15/2023 15:21:38 0 <=0 (/100 WBCs) Final Performing Location [facility] [place] - [address] [place] [address]
--- OUTSIDE RECORDS SUMMARY | 2023-10-11 09:27 | External Medical Summary ---
Author Name Unknown Address Unknown Organization [id number]:[facility]ATORY [facility] [place] - [address] [place] [address] Laboratory Report Ordering Provider Test Date Status EDENHUSSEIN 08/15/2023 15:21:38 Final Deficient: <20 ng/mL
Ins ufficient: 20-29 ng/mL
Recommended/Optimum:30-50 ng/mL

Vitamin D intoxication is rare. If suspicious of Vitamin D toxicity, evaluation of serum Calcium and PTH is recommended. Observation Date Value Abnormality Reference (Units ) Status 25-OH Vitamin D total 08/15/2023 15:21:38 39 >19 (ng/mL) Final Performing Location LABORATORY [facility] - [address] [place] [address]
--- OUTSIDE RECORDS SUMMARY | 2023-10-11 09:27 | External Medical Summary | Summary of Care ---
Author Name Unknown Organization [facility] Address [address] [facility] [place] [address] Phone [phone] Care Team Providers Care Wrist Hemmer Name Role Phone Bessy Wang MD Primary Care Provider [phone] [phone] Reason for Visit * Reason Comments Outpatient Testing Encounter Details Date Type Department Care Team (Late st Contact Info) Description 09/23/2023 1:20 PM EST Laboratory Laboratory [address] [place] [id number] [place] [address] Hematuria, gross; Dysuria Allergies Active Allergy Reactions Criticality Noted Date Comments Levofloxacin 09/04/2014 tendinopathy Valproic Acid 02/25/2016 documented as of this encounter (statuses as of 09/23/2023) Medications Medication Sig Dispensed Refills Start Date [...] 08/18/2023 Active tiZANidine HCl 2 MG Oral CapsuleIndications: Migraine with aura and without status migrainosus, not intractable TAKE 1 CAPSULE BY MOUTH TWICE A DAY 60 Capsule 3 09/19/2023 Active documented as of this encounter (statuses as of 09/23/2023) Active Problems Problem Noted Date Diagnosed Date [...] as of this encounter (statuses as of 09/23/2023) Resolved Problems Problem Noted Date Diagnosed Date Resolved Date BCC right anterior shoulder 03/201003/19/2010 04/21/2017 documented as of this encounter (statuses as of 09/23/2023) Immunizations Name Administration Dates Next Due COVID-19 [...] Description 01/31/2024 1:30 PM EDT Imaging Radiology [address] [place] [address] 03/20/2024 3:30 PM EDT Office Visit Neurology [facility] [address] [facility] [place] [address] Catarina Jiménez PA-C [address] [facility] [place] [address] 04/26/2024 3:45 PM EDT Office Visit Dermatology [facility] [address] [facility] [place] [address] Cary Meade MD [address] [place] [address] Pending Results Name Type Priority Associated Diagnoses Date /Time URINALYSIS, REFLEX TO CULTURE (NOT FOR NEUTROPENIC PATIENTS) Lab Routine Hematuria, gross Dysuria 09/23/2023 1:09 PM EST URINALYSIS, REFLEX TO CULTURE (CUP ONLY) Lab Routine Hematuria, gross Dysuria 09/23/2023 1:09 PM EST URINALYSIS, REFLEX TO CULTURE Lab Routine Hematuria, gross Dysuria 09/23/2023 1:09 PM EST Health Maintenance Due Date Last Done Comments Depression Screening 1960 Albumin/Creatinine Ratio 1966 DTaP,Tdap,and Td Vaccines (1 - Tdap) 1967 Zoster Vaccines (1 of 2) 1998 Pneumococcal Vaccine: 65+ Years (1 of 1 - PCV) 2013 *BASELINE EKG FOR HTN 08/10/2021 COVID-19 Vaccine (2022-24 season) 2023 06/16/2021, 10/01/2020, 09/03/2020 Influenza Vaccine [...] as of this encounter Visit Diagnoses Diagnosis Hematuria, gross Gross hematuria Dysuria documented in this encounter Care Teams Wrist Hemmer Relationship Specialty Start Date End Date Bessy Wang MD [address] [place] [address] [place] [address] PCP - General 07/16/1999 documented as of this encounter
--- OUTSIDE RECORDS SUMMARY | 2023-10-11 09:27 | External Medical Summary ---
Author Name Unknown Address Unknown Organization [id number]:LABORATORY [facility] [place] - [address] [facility] [place] [address] Laboratory Report Ordering Provider Test Date Status HUSSEIN HARMON 09/23/2023 13:09:34 Final Observation Date Value Abnormality Reference (Units ) Status Color of Urine by Auto 09/23/2023 13:09:34 Yellow Colorless, Light Yellow, Yellow, Dark Yellow Final Clarity, Urine 09/23/2023 13:09:34 Clear Clear Final Glucose [Mass/volume] in Urine by Automated test strip 09/23/2023 13:09:34 Negative Negative (mg/dL) Final Bilirubin.total [Presence] in Urine by Automated test strip 09/23/2023 13:09:34 Negative Negative Final Ketones [Mass/volume] in Urine by Automated test strip 09/23/2023 13:09:34 Negative Negative (mg/dL) Final Specific gravity, Urine 09/23/2023 13:09:34 1.015 1.003-1.030 Final Hemoglobin [Presence] in Urine by Automated test strip 09/23/2023 13:09:34 Negative Negative Final pH, Urine 09/23/2023 13:09:34 6.5 5.0-7.5 (Units) Final Protein [Mass/volume] in Urine by Automated test strip 09/23/2023 13:09:34 Negative Negative (mg/dL) Final Urobilinogen [Mass/volume] in Urine by Automated test strip 09/23/2023 13:09:34 Normal Normal (mg/dL) Final Nitrite [Presence] in Urine by Automated test strip 09/23/2023 13:09:34 Negative Negative Final Leukocyte esterase [Presence] in Urine by Automated test strip 09/23/2023 13:09:34 Small Abnormal Negative Final RBC, Urine 09/23/2023 13:09:34 0-2 0-2 (/HPF) Final WBC, Urine 09/23/2023 13:09:34 6-9 Abnormal 0-2 (/HPF) Final Bacteria [#/area] in Urine sediment by Microscopy high power field 09/23/2023 13:09:34 26-50 Abnormal 0-25 (/HPF) Final Epithelial cells.renal [#/area] in Urine sediment by Microscopy high power field 09/23/2023 13:09:34 1-4 Abnormal None (/HPF) Final Transitional cells [#/area] in Urine sediment by Microscopy high power field 09/23/2023 13:09:34 1-4 Abnormal None (/HPF) Final CULTURE, URINE - [facility] 09/23/2023 13:09:34 Final Quantitative urine culture t o be performed Performing Location [facility]ORY [facility] [place] - [address] [place] [facility] [address]
--- OUTSIDE RECORDS SUMMARY | 2023-10-11 09:27 | External Medical Summary | Summary of Care ---
Author Name Unknown Organization [facility] Address [address] [facility] [place] [address] Phone [phone] Care Team Providers Care Cost Recovery Technician Name Role Phone Bessy Wang MD Primary Care Provider [phone] [phone] Reason for Visit * Reason Comments Outpatient Testing Encounter Details Date Type Department Care Team (Late st Contact Info) Description 08/15/2023 3:20 PM EST Laboratory Laboratory [address] [place] [phone] [place] [address] HTN, goal below 140/90; Hematuria, gross; Screening [...] Description 01/31/2024 1:30 PM EDT Imaging Radiology [address] [place] [address] 04/26/2024 3:45 PM EDT Office Visit [facility]ermatology [facility] [address] [facility] [place] [address] Cary Meade MD [address] [place] [address] Pending Results Name Type Priority Associated Diagnoses [...] deficiency documented in this encounter Care Teams Cost Recovery Technician Relationship Specialty Start Date End Date Bessy Wang MD [address] [place] [address] [place] [address] PCP - General 07/16/1999 documented as of this encounter
--- OUTSIDE RECORDS SUMMARY | 2023-10-11 09:28 | External Medical Summary | Summary of Care ---
Author Name Unknown Organization [facility] Address [address] [facility] [place] [address] Phone [phone] Care Team Providers Care Vehicle Calibration Engineer Name Role Phone Bessy Wang MD Primary Care Provider [phone] [phone] Reason for Visit * Reason Onset Date Comments Medication Refill 05/11/2023 Encounter Details Date Type Department Care Team Description 05/11/2023 Refill Neurology [facility] [place] [address] [place] [address] Zay Bonilla MD [address] [facility] [place] [address] Migraine with aura and without status migrainosus, not intractable Allergies Active Allergy Reactions Severity Noted Date Comments Levofloxacin 09/04/2014 tendinopathy Valproic Acid 02/25/2016 documented as of this encounter (statuses as of 05/11/2023) Medications Medication Sig Dispensed Refills Start Date [...] tablets at bedtime. 180 Tablet 3 05/02/2023 Active diazePAM 10 MG Oral Tablet (Valium)Indication s:Migraine with aura and without status migrainosus, not intractable One every 4-6 hrs as needed for anxiety caused by headaches-max of 2 per day 30 Tablet 5 05/11/2023 Active diazePAM 10 MG Oral Tablet (Valium)Indication s:Migraine with aura and without status migrainosus, not intractable One every 4-6 hrs as needed for anxiety caused by headaches-max of 2 per day 30 Tablet 5 10/18/2022 3 Discontinue d(Refill) documented as of this encounter (statuses as of 05/11/2023) Active Problems Problem Noted Date History of nonmelanoma skin cancer 04/21 Overview: SCC left medial lower leg 04/17 BCC right shoulder 01/08 SCC left anterior leg 04/11 Status post total bilateral knee replace ment 02/25/2016 Essential hypertension with goal blood p ressure less than 140/90 02/25/2016 Migraine without status migrainosus, not intractable 02/25/2016 ADVANCE DIRECTIVE INFORMATION 04/07/2005 Overview: Yes, Patient instructed to provide copy of advance directive for provider to review and to be scanned into Electronic Medical Record Headache Overview: ICD-10 update of inactive term Irritable bowel syndrome documented as of this encounter (statuses as of 05/11/2023) Resolved Problems Problem Noted Date Resolved Date BCC right anterior shoulder 03/201003/19/2010 04/21/2017 documented as of this encounter (statuses as of 05/11/2023) Immunizations Name Administration Dates Next Due COVID-19 mRNA, LNP-s, No Pre serve, 2-Dose Series (Moderna) 10/01/2020,09/03/2020 COVID-19, mRNA, LNP-s, PF, B ooster, 100mcg/0.5mg (Moderna) 06/16/2021 documented as of this encounter Social History Tobacco Use Types Packs/Day Years Used Date Smoking Tobacco: Never Smokeless Tobacco: Never Alcohol Use Standard Drinks/Week Comments No 0 (1 standard drink = 0.6 oz pur e alcohol) Sex Assigned at Date Recorded Not on file Job Start Date Occupation Industry Not on file Not on file Not on file documented as of this encounter Miscellaneous Notes * Telephone Encounter - Zay Bonilla MD - 05/11/2023 3:10 PM EDTSigned Prescriptions: Disp Refills diazePAM 10 MG Oral Tablet (Valium) 30 Tab*5 Sig: One every 4-6 hrs as needed for anxiety caused by headaches-max of 2 per day Authorizing Provider: ZAY BONILLA * Telephone Encounter - Bernarda [email or web address] - 05/11/2023 9:55 AM EDT Pending Prescriptions: Disp Refills diazePAM 10 MG Oral Tablet (Valium) 30 Tab*5 Sig: One every 4-6hrs as needed for anxiety caused by headaches-max of 2 per day documented in this encounter Plan of Treatment Upcoming Encounters Date Type Specialty Care Team Description 06/16/2023 Office Visit Dermatology Cary Meade MD 200 [facility], [place] [id number] 08/16/2023 Office Visit Neurology Catarina Jiménez PA-C [address] [facility] [place] [phone] 01/31/2024 Imaging Radiology Health Maintenance Due Date Last Done Comments [...] migrainosus documented in this encounter Care Teams Vehicle Calibration Engineer Relationship Specialty Start Date End Date Bessy Wang MD [address] [place] [address] [place] [address] PCP - General 07/16/1999 documented as of this encounter
--- OUTSIDE RECORDS SUMMARY | 2023-10-11 09:28 | External Medical Summary ---
Author Name Unknown Address Unknown Organization [id number]:LABORATORY [facility] [place] - [address] [place] [address] Laboratory Report Ordering Provider Test Date Status HUSSEIN HARMON 04/20/2023 15:27:57 Final Observation Date Value Abnormality Reference (Units ) Status Erythrocyte sedimentation rate by Photometric method 04/20/2023 15:27:57 9 <30 (mm/hour) Final Performing Location LABORATORY [facility] [place] - [address] [place] [address]
--- OUTSIDE RECORDS SUMMARY | 2023-10-11 09:28 | External Medical Summary ---
Author Name Unknown Address Unknown Organization [id number]:[facility] [place] [address] [facility] [place] [address] Laboratory Report Ordering Provider Test Date Status HUSSEIN HARMON 04/20/2023 15:27:57 Final Observation Date Value Abnormality Reference (Units ) Status BUN 04/20/2023 15:27:57 20 6-20 (mg/dL) Final Creatinine 04/20/2023 15:27:57 0.9 0.5-1.0 (mg/dL) Final Glomerular filtration rate/1.73 sq M.predicted [Volume Rate/Area] in Serum, Plasma or Blood by Creatinine-based formula (CKD-EPI) 04/20/2023 15:27:57 66 >=60 (mL/min) Final eGFR is calculated based on the CKD-EPI 2020 equation SODIUM 04/20/2023 15:27:57 137 135-146 (m mol/L) Final Potassium 04/20/2023 15:27:57 4.6 3.5-5.1 (m mol/L) Final Cl 04/20/2023 15:27:57 100 98-107 (mm ol/L) Final CO2 04/20/2023 15:27:57 27 22-32 (mmo l/L) Final Anion gap 04/20/2023 15:27:57 10 7-15 (mmol /L) Final Glucose 04/20/2023 15:27:57 79 70-120 (mg /dL) Final Albumin 04/20/2023 15:27:57 4.3 3.8-5.0 (g /dL) Final AST (Aspartate aminotransferase) 04/20/2023 15:27:57 21 10-35 (U/L) Final Alk Phos 04/20/2023 15:27:57 101 35-130 (U/ L) Final Bilirubin, Total 04/20/2023 15:27:57 0.3 <=1 .2 (mg/dL) Final Calcium 04/20/2023 15:27:57 9.3 8.4-10.2 ( mg/dL) Final Protein 04/20/2023 15:27:57 6.4 6.0-8.3 (g /dL) Final ALT (Alanine aminotransferase) 04/20/2023 15:27:57 23 10-35 (U/L) Final Performing Location [facility] [place] [address] [place] [facility] [address]
--- OUTSIDE RECORDS SUMMARY | 2023-10-11 09:28 | External Medical Summary ---
Author Name Unknown Address Unknown Organization K01:[facility] [place] - [address] [facility] [address] Laboratory Report Ordering Provider Test Date Status HUSSEIN HARMON 04/20/2023 15:27:57 Final Observation Date Value Abnormality Reference (Units ) Status SYNC LEUKOCYTES IN BLOOD BY AUTOMATED COUNT 04/20/2023 15:27:57 5.61 4.00-10.80 (K/uL) Final Segs 04/20/2023 15:27:57 52.2 40.0-75.0 (%) Final Lymphs % 04/20/2023 15:27:57 32.1 18.0-42.0 (%) Final Monos 04/20/2023 15:27:57 9.3 1.0-11.0 (%) Final Eosinophils 04/20/2023 15:27:57 4.8 0.0-6.0 (%) Final Basos 04/20/2023 15:27:57 1.2 0.0-2.0 (%) Final Immature Granulocyte, Percent 04/20/2023 15:27:57 0.4 0.0-2.0 (%) Final Absolute Segs 04/20/2023 15:27:57 2.93 1.80-7.70 (K/uL) Final Lymphs, absolute 04/20/2023 15:27:57 1.80 1.00-4.80 (K/ul) Final Monos, Abs 04/20/2023 15:27:57 0.52 0.00-1.10 (K/uL) Final Eos, Abs 04/20/2023 15:27:57 0.27 0.00-0.70 (K/uL) Final Basos, Abs 04/20/2023 15:27:57 0.07 0.00-0.20 (K/uL) Final Immature Granulocytes, Number 04/20/2023 15:27:57 0.02 0.00-0.20 (K/uL) Final Performing Location [facility] [place] - [address] [place] [facility] [address]
--- OUTSIDE RECORDS SUMMARY | 2023-10-11 09:28 | External Medical Summary | Summary of Care ---
Author Name Unknown Organization [facility] Address [address] [facility] [place] [address] Phone [phone] Care Team Providers Care Bow Making Machine Operator Name Role Phone Bessy Wang MD Primary Care Provider [phone] [phone] Reason for Visit * Reason Comments Outpatient Testing Encounter Details Date Type Department Care Team Description 04/20/2023 Laboratory Laboratory [address] [place] [address] [facility] [address] [place] [address] Hematuria, gross Allergies Active Allergy Reactions Severity Noted Date Comments Levofloxacin 09/04/2014 tendinopathy Valproic Acid 02/25/2016 documented as of this encounter (statuses as of 04/20/2023) Medications Medication Sig Dispensed Refills Start Date [...] Pain, Mild. 60 Tablet 0 09/20/2022 Active diazePAM 10 MG Oral Tablet (Valium)Indications :Migraine with aura and without status migrainosus, not intractable One every 4-6 hrs as needed for anxiety caused by headaches-max of 2 per day 30 Tablet 5 10/18/2022 Active Lasmiditan Succinate 100 MG Oral Tablet [...] AT BEDTIME 90 Capsule 3 02/14/2023 Active rOPINIRole HCl 0.5 MG Oral Tablet (Requip) Take 1 tablet at 5pm and 1 tablet at bedtime. 180 Tablet 3 03/07/2023 Active Aimovig 70 MG/ML Subcutaneous Solution Auto-injector (Erenumab-aooe) Inject 1mL under the skin monthly. 3 mL 2 04/19/2023 Active documented as of this encounter (statuses as of 04/20/2023) Active Problems Problem Noted Date History of [...] as of this encounter (statuses as of 04/20/2023) Resolved Problems Problem Noted Date Resolved Date BCC right anterior shoulder 03/201003/19/2010 04/21/2017 documented as of this encounter (statuses as of 04/20/2023) Immunizations Name Administration Dates Next Due COVID-19 [...] Encounters Date Type Specialty Care Team Description 05/26/2023 Office Visit Dermatology Cary Meade MD [address] [place] [address] [place] [address] 08/16/2023 Office Visit Neurology Catarina Jiménez PA-C 21 [place] [address] 01/31/2024 Imaging Radiology Pending Results Name Type Priority Associated Diagnoses Date /Time CBC WITH WBC DIFFERENTIAL Lab Routine Hematuria, gross 04/20/2023 3:27 PM EDT COMPREHENSIVE METABOLIC PANEL Lab Routine Hematuria, gross 04/20/2023 3:27 PM EDT ERYTHROCYTE SEDIMENTATION RATE (ESR) Lab Routine Hematuria, gross 04/20/2023 3:27 PM EDT URINALYSIS, REFLEX TO MICROSCOPIC Lab Routine Hematuria, gross 04/20/2023 3:27 PM EDT CBC Lab Routine Hematuria, gross 04/20/2023 3:27 PM EDT DIFFERENTIAL, AUTOMATED Lab Routine Hematuria, gross 04/20/2023 3:27 PM EDT Health Maintenance Due Date Last Done Comments Depression Screening 1960 Albumin/Creatinine Ratio 1966 DTaP,Tdap,and Td Vaccines (1 - Tdap) 1967 Cologuard 1993 Colonoscopy 1993 Sigmoidoscopy 1993 Zoster Vaccines (1 of 2) 1998 Pneumococcal Vaccine: 65+ Years (1 - PCV) 2013 Colorectal Cancer Screening 06/04/2017 Fecal Occult Blood Test 06/04/2017 06/04/20 16, 08/16/2008, 10/12/2007 *BASELINE EKG FOR HTN 08/10/2021 COVID-19 Vaccine (4 - Moderna series) 08/11/2021 06/16/2021, 10/01/2020, 09/03/2020 Influenza Vaccine (FLU shot) (#1) 2023 GFR 01/16/2024 01/15/2023, 12/31, 03/24/2021, Additional history exists Mammogram 01/29/2024 01/28/2023, 12/31, 01/06/2021, Additional history exists DXA Scan 05/13/2027 05/13/2020 [...] Visit Diagnoses Diagnosis Hematuria, gross Gross hematuria documented in this encounter Care Teams Bow Making Machine Operator Relationship Specialty Start Date End Date Bessy Wang MD [address] [place] [address] [place] [address] PCP - General 07/16/1999 documented as of this encounter
--- OUTSIDE RECORDS SUMMARY | 2023-10-11 09:28 | External Medical Summary | Summary of Care ---
Author Name Unknown Organization [facility] Address [address] [facility] [address] Phone [phone] Care Team Providers Care Java Development Team Lead Name Role Phone Bessy Wang MD Primary Care Provider [phone] [phone] Reason for Visit * Reason Onset Date Comments Precert Approved 04/11/2023 HUNTER Encounter Details Date Type Department Care Team Description 04/11/2023 Telephone Neurology [facility] [address] [place] [address] Catarina Jiménez PA-C 21 [facility] [place] [address] Precert Approved ( HUNTER) Allergies Active Allergy Reactions Severity Noted Date Comments Levofloxacin 09/04/2014 tendinopathy Valproic Acid 02/25/2016 documented as of this encounter (statuses as of 04/19/2023) Medications Medication Sig Dispensed Refills Start Date [...] as needed 30 g 0 08/16/2022 Active HYDROcodone-Aceta minophen 5-325 MG Oral Tablet Take 1 Tablet by mouth every 6 hours as needed for Pain, Mild. 60 Tablet 0 09/20/2022 Active diazePAM 10 MG Oral Tablet (Valium)Indicatio ns:Migraine with aura and without status migrainosus, not [...] 01/07/2023 Active tiZANidine HCl 2 MG Oral CapsuleIndication s:Migraine with aura and without status migrainosus, not intractable TAKE 1 CAPSULE BY MOUTH EVERYDAY AT BEDTIME 90 Capsule 3 02/14/2023 Active rOPINIRole HCl 0.5 MG Oral Tablet (Requip) Take 1 tablet at 5pm and 1 tablet at bedtime. 180 Tablet 3 03/07/2023 Active Aimovig 70 MG/ML Subcutaneous Solution Auto-injector (Erenumab-aooe) Inject 1mL under the skin monthly. 3 mL 2 04/19/2023 Active Ajovy 225 MG/1.5ML Subcutaneous Solution Auto-injector (Fremanezumab-vfr m) Inject 1.5mL under the skin monthly. 1.5 mL 5 04/11/2023 04/19/20 23 Discontinued documented as of this encounter (statuses as of 04/19/2023) Active Problems Problem Noted Date History of [...] as of this encounter (statuses as of 04/19/2023) Resolved Problems Problem Noted Date Resolved Date BCC right anterior shoulder 03/201003/19/2010 04/21/2017 documented as of this encounter (statuses as of 04/19/2023) Immunizations Name Administration Dates Next Due COVID-19 [...] as of this encounter Miscellaneous Notes * Addendum Note - Catarina Jiménez PA-C - 04/19/2023 12:51 PM EDTAddended by: CATARINA JIMÉNEZ on: 04/19/2023 12:51 PM Modules accepted: Orders * Telephone Encounter - Alayna Baig LPN - 04/11/2023 10:19 AM EDT Neurology Pre-Cert Request Medication/Disease State Information: Medication: Fremanezumab (Ajovy) - 225mg/1.5ml pen - 225mg once a month Diagnosis (including ICD-10): Migraine - Chronic Migraine G43.709 - Self- administered - route pre-cert request to [id number] See corresponding visit note(s) for additional supporting clinical information. Office Information: Prescriber: Catarina Jiménez PA-C documented in this encounter Plan of Treatment Upcoming Encounters Date Type Specialty Care Team Description 04/20/2023 Imaging Radiology 05/26/2023 Office Visit Dermatology Cary Meade MD [address] [place] [address] 08/16/2023 Office Visit Neurology Catarina Jiménez PA-C 21 [facility] [place] [address] 01/31/2024 Imaging Radiology Health Maintenance Due Date [...] filedocumented as of this encounter Care Teams Java Development Team Lead Relationship Specialty Start Date End Date Bessy Wang MD [address] [place] [address] [place] [id number] PCP - General 07/16/1999 documented as of this encounter
--- OUTSIDE RECORDS SUMMARY | 2023-10-11 09:28 | External Medical Summary | Summary of Care ---
Author Name Unknown Organization [facility] Address [address] [facility] [address] Phone [phone] Care Team Providers Care Water Softener Service Supervisor Name Role Phone Bessy Wang MD Primary Care Provider [phone] [phone] Reason for Visit * Reason Onset Date Comments Precert Approved 04/11/2023 HUNTER Encounter Details Date Type Department Care Team Description 04/11/2023 Telephone Neurology [facility] [address] [place] [address] Catarina Jiménez PA-C 21 [facility] [place] [address] Precert Approved ( HUNTER) [...] at bedtime. 180 Tablet 3 03/07/2023 Active Ajovy 225 MG/1.5ML Subcutaneous Solution Auto-injector (Fremanezumab-vfrm) Inject 1.5mL under the skin monthly. 1.5 mL 5 04/11/2023 Active documented as of this encounter (statuses [...] encounter Miscellaneous Notes * Telephone Encounter - Alayna Baig LPN - 04/11/2023 10:19 AM EDT Neurology Pre-Cert Request Medication/Disease State Information: Medication: Fremanezumab (Ajovy) - 225mg/1.5ml pen - 225mg once a month Diagnosis (including ICD-10): Migraine - Chronic Migraine G43.709 - Self- administered - route pre-cert request to [id number] See corresponding visit note(s) for additional supporting clinical information. Office Information: Prescriber: Catarina Jiménez PA-C documented in this encounter Plan of Treatment Upcoming Encounters Date Type Specialty Care Team Description 04/20/2023 Imaging Radiology 05/26/2023 Office Visit Dermatology Cary Meade MD [address] [place] [address] 08/16/2023 Office Visit Neurology Catarina Jiménez PA-C 21 [facility] [place] [address] 01/31/2024 Imaging Radiology Health Maintenance Due Date [...] filedocumented as of this encounter Care Teams Water Softener Service Supervisor Relationship Specialty Start Date End Date Bessy Wang MD [address] [place] [address] [place] [id number] PCP - General 07/16/1999 documented as of this encounter
--- OUTSIDE RECORDS SUMMARY | 2023-10-11 09:28 | External Medical Summary ---
Author Name Unknown Address Unknown Organization K01:LABORATORY [facility] [place] - [address] [facility] [address] [facility] [address] Laboratory Report Ordering Provider Test Date Status HUSSEIN HARMON 04/20/2023 15:27:57 Final Observation Date Value Abnormality Reference (Units ) Status Color of Urine by Auto 04/20/2023 15:27:57 Light Yellow Colorless, Light Yellow, Yellow, Dark Yellow Final Clarity, Urine 04/20/2023 15:27:57 Clear Clear Final Glucose [Mass/volume] in Urine by Automated test strip 04/20/2023 15:27:57 Negative Negative (mg/dL) Final Bilirubin.total [Presence] in Urine by Automated test strip 04/20/2023 15:27:57 Negative Negative Final Ketones [Mass/volume] in Urine by Automated test strip 04/20/2023 15:27:57 Negative Negative (mg/dL) Final Specific gravity, Urine 04/20/2023 15:27:57 1.005 1.003-1.030 Final Hemoglobin [Presence] in Urine by Automated test strip 04/20/2023 15:27:57 Negative Negative Final pH, Urine 04/20/2023 15:27:57 6.5 5.0-7.5 (Units) Final Protein [Mass/volume] in Urine by Automated test strip 04/20/2023 15:27:57 Negative Negative (mg/dL) Final Urobilinogen [Mass/volume] in Urine by Automated test strip 04/20/2023 15:27:57 Normal Normal (mg/dL) Final Nitrite [Presence] in Urine by Automated test strip 04/20/2023 15:27:57 Negative Negative Final Leukocyte esterase [Presence] in Urine by Automated test strip 04/20/2023 15:27:57 Negative Negative Final Annotation Comment 04/20/2023 15:27:57 Final Screen negative - Microscopi c not performed. Performing Location [facility]ORY [facility] [address] [facility] [address]
--- OUTSIDE RECORDS SUMMARY | 2023-10-11 09:28 | External Medical Summary ---
Author Name Unknown Address Unknown Organization K01:[facility]ATORY [facility] [place] - [facility] [address] [facility] [address] Laboratory Report Ordering Provider Test Date Status HUSSEIN HARMON 04/20/2023 15:27:57 Final Observation Date Value Abnormality Reference (Units ) Status WBC, Total 04/20/2023 15:27:57 5.61 4.00-10.80 (K/uL) Final RBC 04/20/2023 15:27:57 4.50 3.85-5.15 (M/uL) Final Hemoglobin 04/20/2023 15:27:57 12.6 12.0-15.3 (g/dL) Final HCT 04/20/2023 15:27:57 39.4 36.0-45.2 (%) Final MCV 04/20/2023 15:27:57 87.6 81.5-97.5 (fL) Final MCH 04/20/2023 15:27:57 28.0 27.0-34.0 (pg) Final MCHC 04/20/2023 15:27:57 32.0 32.0-36.0 (g/dL) Final RDW 04/20/2023 15:27:57 14.2 11.5-15.5 (%) Final Platelets 04/20/2023 15:27:57 226 140-400 (K/uL) Final MPV 04/20/2023 15:27:57 10.7 6.6-11.1 (fL) Final Nucleated erythrocytes/100 leukocytes [Ratio] in Blood by Automated count 04/20/2023 15:27:57 0 <=0 (/100 WBCs) Final Performing Location LAB[facility]ORY [facility] [place] - [address] [address]
--- OUTSIDE RECORDS SUMMARY | 2023-10-11 09:28 | External Medical Summary | Summary of Care ---
Author Name Unknown Organization [facility] Address [address] [place] [address] Phone [phone] Care Team Providers Care Buttonhole Maker Hand Name Role Phone Bessy Wang MD Primary Care Provider [phone] [phone] Encounter Details Date Type Department Care Team Description 04/18/2023 Orders Only Access [facility], [address] *DO NOT REMOVE THIS DEPARTMENT* [place] [address] Requisition, External Radiology [address] [place] [address] Gross hematuria*; Low back pain, unspecified Allergies Active Allergy Reactions Severity Noted Date Comments Levofloxacin 09/04/2014 tendinopathy Valproic Acid 02/25/2016 documented as of this encounter (statuses as of 04/18/2023) Medications Medication Sig Dispensed Refills Start Date [...] as of this encounter (statuses as of 04/18/2023) Active Problems Problem Noted Date History of [...] as of this encounter (statuses as of 04/18/2023) Resolved Problems Problem Noted Date Resolved Date BCC right anterior shoulder 03/201003/19/2010 04/21/2017 documented as of this encounter (statuses as of 04/18/2023) Immunizations Name Administration Dates Next Due COVID-19 [...] Office Visit Dermatology Cary Meade MD [address] [place] [address] 08/16/2023 Office Visit Neurology Catarina Jiménez PA-C [address] [place] [address] 01/31/2024 Imaging Radiology Scheduled Orders Name Type Priority Associated Diagnoses Orde r Schedule US RENAL Medical Imaging Routine Gross hematuria Low back pain, unspecified Expected: 04/18/2023, Expires: 05/18/2024 Health Maintenance Due Date Last Done Comments [...] as of this encounter Visit Diagnoses Diagnosis Gross hematuria- Primary Low back pain, unspecified documented in this encounter Care Teams Buttonhole Maker Hand Relationship Specialty Start Date End Date Bessy Wang MD [address] [place] [address] [place] [address] PCP - General 07/16/1999 documented as of this encounter
--- OUTSIDE RECORDS SUMMARY | 2023-10-11 09:29 | External Medical Summary | Summary of Care ---
Author Name Unknown Organization [facility] Address [address] [facility] [address] Phone [phone] Care Team Providers Care Accordion Tuner Name Role Phone Bessy Wang MD Primary Care Provider +1 [phone] Reason for Visit * Reason Onset Date Comments Precert Approved 04/11/2023 HUNTER Encounter Details Date Type Department Care Team Description 04/11/2023 Telephone Neurology [facility] [address] [place] [address] Catarina Jiménez PA-C 21 [facility] [place] [address] Precert Approved ( HUNTER) Allergies Active Allergy Reactions Severity Noted Date Comments Levofloxacin 09/04/2014 tendinopathy Valproic Acid 02/25/2016 documented as of this encounter (statuses as of 04/14/2023) Medications Medication Sig Dispensed Refills Start Date [...] as of this encounter (statuses as of 04/14/2023) Active Problems Problem Noted Date History of [...] as of this encounter (statuses as of 04/14/2023) Resolved Problems Problem Noted Date Resolved Date BCC right anterior shoulder 03/201003/19/2010 04/21/2017 documented as of this encounter (statuses as of 04/14/2023) Immunizations Name Administration Dates Next Due COVID-19 [...] Self- administered - route pre-cert request to [id number] See corresponding visit note(s) for additional supporting clinical information. Office Information: Prescriber: Catarina Jiménez PA-C documented in this encounter Plan of Treatment Upcoming Encounters Date Type Specialty Care Team Description 05/26/2023 Office Visit Dermatology Cary Meade MD [address] [place] [address] 08/16/2023 Office Visit Neurology Catarina Jiménez PA-C 21 [facility] [place] [address] 01/31/2024 Imaging Radiology Health Maintenance Due Date [...] filedocumented as of this encounter Care Teams Accordion Tuner Relationship Specialty Start Date End Date Bessy Wang MD [address] [place] [address] [place] [address] PCP - General 07/16/1999 documented as of this encounter
[2023-10-11] MEDS: amLODIPine BESYLATE 5 MG TAB PO SCH (10:52)
[2023-10-11] MEDS: LOSARTAN POTASSIUM 50 MG TAB PO SCH (10:52)
[2023-10-11] MEDS: METOPROLOL SUCC 50MG EXT REL TAB PO SCH (10:52)
[2023-10-11] MEDS: DULoxetine HCL 20 MG CAP PO SCH (10:52)
[2023-10-11] MEDS: MULTIVITAMIN TAB PO SCH (10:52)
[2023-10-11] MEDS: ALBUT/IPRATROP 3MG/0.5MG NEB 3 ML VIAL NEB SCH (11:05)
--- NOTE | 2023-10-11 14:37 | Communication Note ---
Date of Service: October 11, 2023 Pt was seen in the AM, was receiving a breathing treatment. States that her breathing has improved significantly. Feeling much better. Breath sounds with good air movement bilaterally, on RA. Iron Def Anemia- iron level low, given a dose of IV Venofer. Pt requesting fluoxetine be added to her medications here. States that she takes it at home. External pharmacy link with no noted fluoxetine on med list. Pt states she gets it filled at [facility] in [place]. [facility] contacted and pharmacist there notes that she has not filled fluoxetine but does fill DULOXETINE. Pt states that she is pretty sure that she takes fluoxetine, will have someone bring in the bottle from home. Will add to med regimen here when bottle brought in and med confirmed. Will need to d/c DULOXETINE if she indeed takes fluoxetine as use of an SSRI (Fluoxetine) with SNRI (Duloxetine) can lead to increased side effects and might represent duplication of therapy. For additional discussion, please see the History and Physical from the same date of service.
[2023-10-11] MEDS: IRON SUCROSE 200 MG in 0.9 % SODIUM CHLORIDE 100 ML IV ONE (15:11)
[2023-10-11] MEDS: rOPINIRole HCL 1 MG TABLET PO SCH (17:18)
[2023-10-11] MEDS: tiZANidine HCL 4 MG TABLET PO SCH (21:34)
[2023-10-11] MEDS: traZODone HCL 50 MG TAB PO SCH (21:34)
[2023-10-11] MEDS: AMITRIPTYLINE HCL 10 MG TAB PO SCH (21:39)
[2023-10-11] MEDS: ATORVASTATIN 40 MG TAB PO SCH (21:41)
[2023-10-11] MEDS: DOXYCYCLINE HYCLATE 100 MG CAP PO SCH (21:41)
[2023-10-12] MEDS: BENZONATATE 100 MG CAPSULE PO ONE (01:59)
[2023-10-12] MEDS ORDERED: COUGH DROP (SUGAR FREE) LOZ 24 LOZ/1 BOX BUCCAL PRN (01:59)
[2023-10-12] MEDS: guaiFENesin/CODEINE 100MG/10MG 5ML UDC PO PRN (04:32)
[2023-10-12] MEDS: PANTOprazole 40 MG TAB PO SCH (04:33)
[2023-10-12 07:55] LABS: Basophils # (auto) 0.05 K/uL (0.00-0.20); Basophils % (auto) 0.7 %; Eosinophils # (auto) 0.25 K/uL (0.00-0.50); Eosinophils % (auto) 3.5 %; Hematocrit (blood only) 33.9 % (37.0-47.0); Hemoglobin 11.2 g/dl (12.0-16.0); Immature Granulocytes # (auto) 0.03 K/uL (0.01-0.20); Immature Granulocytes % (auto) 0.4 %; Lymphocytes # (auto) 1.52 K/uL (1.20-3.40); Mean Corpuscular Hemoglobin 27.8 pg (25.0-34.0); Mean Corpuscular Volume 84.1 fL (80.0-100.0); Mean Platelet Volume 10.5 fL (9.4-12.4); Monocytes # (auto) 0.72 K/uL (0.11-0.59); Neutrophils # (auto) 4.66 K/uL (1.40-6.50); Neutrophils % (auto) 64.4 %; Platelet Count 220 K/uL (130-400); RDW Coefficient of Variation 14.3 % (11.5-14.5); RDW Standard Deviation 44.3 fL (36.4-46.3); Red Blood Count 4.03 M/uL (4.20-5.40); White Blood Count 7.23 K/ul (4.8-10.8)
[2023-10-12 08:05] LABS: Calcium 8.4 mg/dl (8.6-10.3); Magnesium 2.2 mg/dl (1.7-2.4); Potassium 4.1 mmol/L (3.5-5.1)
[2023-10-12 08:11] LABS: BUN Creatinine Ratio 19.3 (10-20); Creatinine Clr Calc Pharmacy 62.5 ml/min; Est GFR (African American) 79.9 ml/min; Phosphorus 3.9 mg/dl (2.5-4.9)
[2023-10-12] MEDS: CYANOCOBALAMIN (B-12) 500 MCG TABLET PO SCH (08:45)
--- NOTE | 2023-10-12 10:11 | Hospitalist Progress Note ---
Date of Service October 12, 2023 Assessment & Plan (1) Acute hypoxemic respiratory failure: Plan: Secondary to atypical pneumonia No sepsis for now Chest CT - Bilateral upper lobe, right greater than left, patient is opacities are most consistent with atypical infection and/or aspiration. procal negat. Med/tele Supplemental O2 Started Rocephin in ED, added Doxycycline Nebs RTC Pulmonary consult if without improvement Pt currently on RA and cough improved w/ codein New onset anemia, episodic painless hematuria from last month, none currently (seen outpt urology) Iron Def Anemia- iron level low, given a dose of IV Venofer. CT abdomen pelvis Re: Hematuria 1. No hydronephrosis or hydroureter. No urothelial lesions identified although ureters and bladder incompletely opacified. 2. Decreased sensitivity for detection of urinary calculi given excreted contrast from recent contrast-enhanced CT. However, no calculi identified. 3. No acute process within the abdomen or pelvis on unenhanced exam. UA negative FOBT negative Urology consult contingent on CT abdomen pelvis results Appropriate to hold home antiplatelet Rx for now given anemia and hematuria symptoms anemia workup, transfuse PRBC if hemoglobin less than 8 and or from symptomatic anemia (hx CVA) Hyperglycemia likely prediabetes with hemoglobin A1c of 5.7 from 2017 Current hemoglobin A1c 6.1 % Follow up w/ PCP hx CVA, on antiplatelet Rx hypertension, stable hyperlipidemia, on statin Rx past history of PE status post anticoagulation migraine, stable on regimen anxiety/mood disorder, at baseline GERD, stable on PPI DVT prophylaxis. SCDs Re: History hematuria Full code Admission and Anticipated Discharge Date Admission Date: October 11, 2023 Subjective Pt seen in follow up of hypoxia, shortness of breath, found to have atypical pna Sitting up in bed in NAD. Reports cough is dry now improved after received codein overnight no chest pain, shortness of breath, no abd. pain n/v Conversing easily on RA Review of Systems Review of Systems: All systems reviewed & are unremarkable except as noted in Subjective Physical Exam Physical Exam: GENERAL: WD/WN F in NAD HEENT: NC/AT in NAD NECK : Supple CHEST : Decreased breath sounds HEART : RRR, no obvious murmurs ABDOMEN: Some distention, nontender EXTREMITIES : No LE swelling/tenderness NEUROLOGIC : awake, alert, no facial asymmetry, speech fluent, no facial asymmetry, answers appropriately, moves extremities SKIN: warm, dry Results & Data Results & Data Vital Signs (Past 12 Hours) Vital Signs Temp Pulse Pulse Resp BP Pulse Ox O2 Del Method 10/12/23 07:44 36.6 C 76 18 113/63 92 Room Air 10/12/23 07:21 70 10/12/23 07:08 70 18 96 Room Air 10/12/23 03:14 36.7 C 82 18 127/74 95 Room Air 10/12/23 02:16 Room Air 10/11/23 23:08 37.3 C 92 H 16 137/64 96 Room Air Laboratory Results 10/12/23 10/11/23 Range/Units 07:16 21:24 WBC 7.23 (4.8-10.8) K/ul RBC 4.03 L (4.20-5.40) M/uL Hgb 11.2 L (12.0-16.0) g/dl Hct 33.9 L (37.0-47.0) % MCV 84.1 (80.0-100.0) fL MCH 27.8 (25.0-34.0) pg MCHC 33.0 (32.0-36.0) g/dL RDW Std Deviation 44.3 (36.4-46.3) fL RDW Coeff of Valarie 14.3 (11.5-14.5) % Plt Count 220 (130-400) K/uL MPV 10.5 (9.4-12.4) fL Immature Gran % (Auto) 0.4 % Neut % (Auto) 64.4 % Lymph % (Auto) 21.0 % [place] % (Auto) 10.0 % Eos % (Auto) 3.5 % Baso % (Auto) 0.7 % Neut # (Auto) 4.66 (1.40-6.50) K/uL Lymph # (Auto) 1.52 (1.20-3.40) K/uL [place] # (Auto) 0.72 H (0.11-0.59) K/uL Eos # (Auto) 0.25 (0.00-0.50) K/uL Baso # (Auto) 0.05 (0.00-0.20) K/uL Immature Gran # (Auto) 0.03 (0.01-0.20) K/uL Sodium 137 (136-145) mmol/L Potassium 4.1 (3.5-5.1) mmol/L Chloride 108 H (98-107) mmol/L Carbon Dioxide 22 (21-32) mmol/L Anion Gap 7 (3-11) BUN 16 (6-23) mg/dl Creatinine 0.83 (0.6-1.2) mg/dl Est Cr Clr Drug Dosing 62.5 ml/min Est GFR ( Amer) 79.9 ml/min Est GFR (Non-Af Amer) 69.0 ml/min BUN/Creatinine Ratio 19.3 (10-20) Glucose 92 (70-99(Fasting)) mg/dl Calcium 8.4 L (8.6-10.3) mg/dl Phosphorus 3.9 (2.5-4.9) mg/dl Magnesium 2.2 (1.7-2.4) mg/dl Iron 264 H (35-150) mcg/dl Stool Occult Bld Scrn Negative (Negative) Medications Administered Current Inpatient Medications Acetaminophen (Acetaminophen 325 Mg Tab) 650 mg PO Q4H PRN PRN Reason: Pain or Fever Stop: 11/10/23 09:44 Albuterol (Albut/Ipratrop 3mg/0.5mg Neb 3 Ml Vial) 3 ml NEB QIDR [facility]; Protocol Stop: 11/10/23 10:59 Last Admin: 10/12/23 07:08 Dose: 3 ml Amitriptyline HCl (Amitriptyline Hcl 10 Mg Tab) 30 mg PO HS [facility] Stop: 11/10/23 20:59 Last Admin: 10/11/23 21:39 Dose: 30 mg Amlodipine Besylate (Amlodipine Besylate 5 Mg Tab) 5 mg PO QAM [facility] Stop: 11/10/23 09:44 Last Admin: 10/12/23 08:45 Dose: 5 mg Atorvastatin Calcium (Atorvastatin 40 Mg Tab) 40 mg PO QPM [facility] Stop: 11/10/23 20:59 Last Admin: 10/11/23 21:41 Dose: 40 mg Benzonatate (Benzonatate 100 Mg Capsule) 100 mg PO TID PRN PRN Reason: Cough Stop: 11/11/23 01:46 Cyanocobalamin (Cyanocobalamin (B-12) 500 Mcg Tablet) 1,000 mcg PO Q2D@0900 [facility] Stop: 11/11/23 08:59 Last Admin: 10/12/23 08:45 Dose: 1,000 mcg Doxycycline Hyclate (Doxycycline Hyclate 100 Mg Cap) 100 mg PO Q12H [facility] Stop: 10/18/23 19:59 Last Admin: 10/12/23 08:45 Dose: 100 mg Duloxetine HCl (Duloxetine Hcl 20 Mg Cap) 40 mg PO QAM [facility] Stop: 11/10/23 09:44 Last Admin: 10/12/23 08:45 Dose: 40 mg Guaifenesin (Guaifenesin 600 Mg Tabcr) 600 mg PO Q12 [facility] Stop: 11/10/23 07:24 Last Admin: 10/12/23 08:45 Dose: 600 mg Guaifenesin/Codeine Phosphate (Guaifenesin/Codeine 100mg/10mg 5ml Udc) 5 ml PO Q6H PRN PRN Reason: Cough Stop: 11/11/23 03:45 Last Admin: 10/12/23 04:32 Dose: 5 ml Promethazine HCl 6.25 mg/ (Sodium Chloride) 50.25 mls @ 201 mls/hr IV Q6H PRN PRN Reason: Nausea And Vomiting Stop: 11/10/23 07:20 Losartan Potassium (Losartan Potassium 50 Mg Tab) [facility] [place]: 11/10/23 09:59 Last Admin: 10/12/23 08:45 Dose: 100 mg Menthol (Cough Drop (Sugar Free) Ori 24 Ori/1 Box) 1 ori BUCCAL Q2H PRN PRN Reason: Sore Throat Stop: 11/11/23 01:58 Metoprolol Succinate (Metoprolol Succ 50mg Ext Rel Tab) [facility] Stop: 11/10/23 09:44 Last Admin: 10/12/23 08:45 Dose: 50 mg Multivitamins (Multivitamin Tab) 1 tab PO DAILY [facility] Stop: 11/10/23 09:44 Last Admin: 10/12/23 08:45 Dose: 1 tab Oxycodone HCl (Oxycodone Hcl Ir 5 Mg Tab (Immediate Release)) 5 mg PO Q4H PRN PRN Reason: Pain Stop: 10/25/23 07:19 Pantoprazole Sodium (Pantoprazole 40 Mg Tab) 40 mg PO DAILYBB [facility] Stop: 11/11/23 06:29 Last Admin: 10/12/23 04:33 Dose: 40 mg Ropinirole HCl (Ropinirole Hcl 1 Mg Tablet) 1.5 mg PO 1700,2100 [facility] Stop: 11/10/23 16:59 Last Admin: 10/11/23 21:35 Dose: 1.5 mg Tizanidine HCl (Tizanidine Hcl 4 Mg Tablet) 4 mg PO HS [facility] Stop: 11/10/23 20:59 Last Admin: 10/11/23 21:34 Dose: 4 mg Trazodone HCl (Trazodone Hcl 50 Mg Tab) 50 mg PO QPM [facility] Stop: 11/10/23 20:59 Last Admin: 10/11/23 21:34 Dose: 50 mg
[2023-10-12] MEDS: cefTRIAXone SODIUM 1,000 MG in DEXTROSE 5 % MINI-B 50 ML IV SCH (11:08)
[2023-10-12] MEDS: ADVANCED PROBIOTIC 625 MG CAPSULE PO SCH (11:08)
[2023-10-12] MEDS: ACETAMINOPHEN 325 MG TAB PO PRN (17:17)
[2023-10-13] MEDS: BENZONATATE 100 MG CAPSULE PO PRN (01:13)
[2023-10-13 07:04] LABS: Hematocrit (blood only) 35.1 % (37.0-47.0); Hemoglobin 11.3 g/dl (12.0-16.0); Mean Corpuscular Hgb Conc 32.2 g/dL (32.0-36.0); Mean Platelet Volume 10.5 fL (9.4-12.4); Platelet Count 246 K/uL (130-400); RDW Coefficient of Variation 14.4 % (11.5-14.5); RDW Standard Deviation 43.9 fL (36.4-46.3); Red Blood Count 4.18 M/uL (4.20-5.40); White Blood Count 7.86 K/ul (4.8-10.8)
[2023-10-13 07:21] LABS: BUN Creatinine Ratio 19.2 (10-20); Calcium 8.8 mg/dl (8.6-10.3); Creatinine Clr Calc Pharmacy 66.3 ml/min; Est GFR (African American) 86.2 ml/min; Est GFR (Non-African American) 74.4 ml/min; Magnesium 2.1 mg/dl (1.7-2.4); Phosphorus 4.5 mg/dl (2.5-4.9); Potassium 4.3 mmol/L (3.5-5.1)
--- NOTE | 2023-10-13 09:03 | Hospitalist Progress Note ---
Date of Service October 13, 2023 Assessment & Plan (1) Acute hypoxemic respiratory failure: Plan: Secondary to atypical pneumonia No sepsis for now Chest CT - Bilateral upper lobe, right greater than left, patient is opacities are most consistent with atypical infection and/or aspiration. procal negat. Med/tele Supplemental O2 Started Rocephin in ED, added Doxycycline Nebs RTC Pulmonary consult if without improvement Pt currently on RA and cough improved w/ codein New onset anemia, episodic painless hematuria from last month, none currently (seen outpt urology) Iron Def Anemia- iron level low, given a dose of IV Venofer. CT abdomen pelvis Re: Hematuria 1. No hydronephrosis or hydroureter. No urothelial lesions identified although ureters and bladder incompletely opacified. 2. Decreased sensitivity for detection of urinary calculi given excreted contrast from recent contrast-enhanced CT. However, no calculi identified. 3. No acute process within the abdomen or pelvis on unenhanced exam. UA negative FOBT negative Follow up w/ outpt Urology Appropriate to hold home antiplatelet Rx for now given anemia and hematuria symptoms anemia workup, transfuse PRBC if hemoglobin less than 8 and or from symptomatic anemia (hx CVA) Hyperglycemia likely prediabetes with hemoglobin A1c of 5.7 from 2017 Current hemoglobin A1c 6.1 % Follow up w/ PCP hx CVA, on antiplatelet Rx hypertension, stable hyperlipidemia, on statin Rx past history of PE status post anticoagulation migraine, stable on regimen anxiety/mood disorder, at baseline GERD, stable on PPI DVT prophylaxis. SCDs Re: History hematuria Full code Admission and Anticipated Discharge Date Admission Date: October 11, 2023 Subjective Pt seen in follow up of hypoxia, shortness of breath, found to have atypical pna Sitting up in bed in NAD. Reports cough is nonproductive. Breathing treatments help. no chest pain, shortness of breath, no abd. pain n/v Conversing easily on RA Review of Systems Review of Systems: All systems reviewed & are unremarkable except as noted in Subjective Physical Exam Physical Exam: GENERAL: WD/WN F in NAD HEENT: NC/AT in NAD NECK : Supple CHEST : Decreased breath sounds HEART : RRR, no obvious murmurs ABDOMEN: Some distention, nontender EXTREMITIES : No LE swelling/tenderness NEUROLOGIC : awake, alert, no facial asymmetry, speech fluent, no facial asymmetry, answers appropriately, moves extremities SKIN: warm, dry Results & Data Results & Data Vital Signs (Past 12 Hours) Vital Signs Temp Pulse Pulse Resp BP Pulse Ox O2 Del Method 10/13/23 08:18 98 H 18 94 Room Air 10/13/23 08:11 36.8 C 80 18 143/72 H 94 Room Air 10/13/23 07:09 83 10/13/23 03:43 Room Air 10/13/23 03:05 36.8 C 81 18 121/65 95 Room Air 10/13/23 01:54 101 H 16 93 Room Air 10/12/23 22:46 36.8 C 83 18 149/65 H 94 Room Air 10/12/23 21:50 83 Laboratory Results 10/13/23 Range/Units 05:44 WBC 7.86 (4.8-10.8) K/ul RBC 4.18 L (4.20-5.40) M/uL Hgb 11.3 L (12.0-16.0) g/dl Hct 35.1 L (37.0-47.0) % MCV 84.0 (80.0-100.0) fL MCH 27.0 (25.0-34.0) pg MCHC 32.2 (32.0-36.0) g/dL RDW Std Deviation 43.9 (36.4-46.3) fL RDW Coeff of Valarie 14.4 (11.5-14.5) % Plt Count 246 (130-400) K/uL MPV 10.5 (9.4-12.4) fL Sodium 138 (136-145) mmol/L Potassium 4.3 (3.5-5.1) mmol/L Chloride 107 (98-107) mmol/L Carbon Dioxide 23 (21-32) mmol/L Anion Gap 8 (3-11) BUN 15 (6-23) mg/dl Creatinine 0.78 (0.6-1.2) mg/dl Est Cr Clr Drug Dosing 66.3 ml/min Est GFR ( Amer) 86.2 ml/min Est GFR (Non-Af Amer) 74.4 ml/min BUN/Creatinine Ratio 19.2 (10-20) Glucose 101 H (70-99(Fasting)) mg/dl Calcium 8.8 (8.6-10.3) mg/dl Phosphorus 4.5 (2.5-4.9) mg/dl Magnesium 2.1 (1.7-2.4) mg/dl Medications Administered Current Inpatient Medications Acetaminophen (Acetaminophen 325 Mg Tab) 650 mg PO Q4H PRN PRN Reason: Pain or Fever Stop: 11/10/23 09:44 Last Admin: 10/12/23 17:17 Dose: 650 mg Albuterol (Albut/Ipratrop 3mg/0.5mg Neb 3 Ml Vial) 3 ml NEB QIDR [facility]; Protocol Stop: 11/10/23 10:59 Last Admin: 10/13/23 07:28 Dose: 3 ml Amitriptyline HCl (Amitriptyline Hcl 10 Mg Tab) 30 mg PO HS [facility] Stop: 11/10/23 20:59 Last Admin: 10/12/23 20:54 Dose: 30 mg Amlodipine Besylate (Amlodipine Besylate 5 Mg Tab) 5 mg PO QAM [facility] Stop: 11/10/23 09:44 Last Admin: 10/12/23 08:45 Dose: 5 mg Atorvastatin Calcium (Atorvastatin 40 Mg Tab) 40 mg PO QPM [facility] Stop: 11/10/23 20:59 Last Admin: 10/12/23 20:54 Dose: 40 mg Benzonatate (Benzonatate 100 Mg Capsule) 100 mg PO TID PRN PRN Reason: Cough Stop: 11/11/23 01:46 Last Admin: 10/13/23 01:13 Dose: 100 mg Cyanocobalamin (Cyanocobalamin (B-12) 500 Mcg Tablet) 1,000 mcg PO Q2D@0900 [facility] Stop: 11/11/23 08:59 Last Admin: 10/12/23 08:45 Dose: 1,000 mcg Doxycycline Hyclate (Doxycycline Hyclate 100 Mg Cap) 100 mg PO Q12H [facility] Stop: 10/18/23 19:59 Last Admin: 10/12/23 20:54 Dose: 100 mg Duloxetine HCl (Duloxetine Hcl 20 Mg Cap) 40 mg PO QAM [facility] Stop: 11/10/23 09:44 Last Admin: 10/12/23 08:45 Dose: 40 mg Guaifenesin (Guaifenesin 600 Mg Tabcr) 600 mg PO Q12 [facility] Stop: 11/10/23 07:24 Last Admin: 10/12/23 20:53 Dose: 600 mg Guaifenesin/Codeine Phosphate (Guaifenesin/Codeine 100mg/10mg 5ml Udc) 5 ml PO Q6H PRN PRN Reason: Cough Stop: 11/11/23 03:45 Last Admin: 10/12/23 20:49 Dose: 5 ml Promethazine HCl 6.25 mg/ (Sodium Chloride) 50.25 mls @ 201 mls/hr IV Q6H PRN PRN Reason: Nausea And Vomiting Stop: 11/10/23 07:20 Ceftriaxone Sodium 1,000 mg/ (Dextrose) 50 mls @ 100 mls/hr IV Q24H [facility]; Protocol Stop: 10/19/23 10:14 Last Infusion: 10/12/23 11:56 Dose: Infused Lactobacillus Acidophilus (Advanced Probiotic 625 Mg Capsule) 1,250 mg PO DAILY [facility] Stop: 11/11/23 10:14 Last Admin: 10/12/23 11:08 Dose: 1,250 mg Losartan Potassium (Losartan Potassium 50 Mg Tab) 100 mg PO QAM [facility] Stop: 11/10/23 09:59 Last Admin: 10/12/23 08:45 Dose: 100 mg Menthol (Cough Drop (Sugar Free) Ori 24 Ori/1 Box) 1 ori BUCCAL Q2H PRN PRN Reason: Sore Throat Stop: 11/11/23 01:58 Metoprolol Succinate (Metoprolol Succ 50mg Ext Rel Tab) 50 mg PO AMHS [facility] Stop: 11/10/23 09:44 Last Admin: 10/12/23 20:53 Dose: 50 mg Multivitamins (Multivitamin Tab) 1 tab PO DAILY [facility] Stop: 11/10/23 09:44 Last Admin: 10/12/23 08:45 Dose: 1 tab Oxycodone HCl (Oxycodone Hcl Ir 5 Mg Tab (Immediate Release)) 5 mg PO Q4H PRN PRN Reason: Pain Stop: 10/25/23 07:19 Pantoprazole Sodium (Pantoprazole 40 Mg Tab) 40 mg PO DAILYBB [facility] Stop: 11/11/23 06:29 Last Admin: 10/13/23 06:07 Dose: 40 mg Ropinirole HCl (Ropinirole Hcl 1 Mg Tablet) 1.5 mg PO 1700,2100 [facility] Stop: 11/10/23 16:59 Last Admin: 10/12/23 20:52 Dose: 1.5 mg Tizanidine HCl (Tizanidine Hcl 4 Mg Tablet) 4 mg PO HS [facility] Stop: 11/10/23 20:59 Last Admin: 10/12/23 20:51 Dose: 4 mg Trazodone HCl (Trazodone Hcl 50 Mg Tab) 50 mg PO QPM [facility] Stop: 11/10/23 20:59 Last Admin: 10/12/23 20:51 Dose: 50 mg
[2023-10-13] MEDS: POLYETHYLENE (MIRALAX) 17 GM PACK PO SCH (15:49)
[2023-10-13] MEDS ORDERED: CHLORASEPTIC (PHENOL) 1.4% SOLN 180 ML BTL MT PRN (15:55)
--- NOTE | 2023-10-13 21:43 | Electrocardiogram Report ---
Test Reason : Blood Pressure : / mmHG Vent. Rate : 069 BPM Atrial Rate : 069 BPM P-R Int : 164 ms QRS Dur : 076 ms QT Int : 394 ms P-R-T Axes : 030 022 000 degrees QTc Int : 422 ms Normal sinus rhythm Cannot rule out Anterior infarct , age undetermined Abnormal ECG When compared with ECG of 16-OCT-2020 23:25, T wave inversion less evident in Inferior leads Confirmed by Marquis Hensley ([id number]) on 10/13/2023 9:42:42 PM Referred By: REFERRED SELF Confirmed By:Marquis Hensley
[2023-10-14 07:05] LABS: Hematocrit (blood only) 36.3 % (37.0-47.0); Hemoglobin 11.8 g/dl (12.0-16.0); Mean Corpuscular Hemoglobin 27.5 pg (25.0-34.0); Mean Corpuscular Hgb Conc 32.5 g/dL (32.0-36.0); Mean Corpuscular Volume 84.6 fL (80.0-100.0); Mean Platelet Volume 10.1 fL (9.4-12.4); Platelet Count 276 K/uL (130-400); RDW Coefficient of Variation 14.5 % (11.5-14.5); RDW Standard Deviation 44.2 fL (36.4-46.3); Red Blood Count 4.29 M/uL (4.20-5.40); White Blood Count 8.55 K/ul (4.8-10.8)
[2023-10-14 07:41] LABS: BUN Creatinine Ratio 23.5 (10-20); Creatinine Clr Calc Pharmacy 63.3 ml/min; Est GFR (African American) 82.3 ml/min; Magnesium 2.2 mg/dl (1.7-2.4); Phosphorus 4.9 mg/dl (2.5-4.9); Potassium 4.1 mmol/L (3.5-5.1)
--- NOTE | 2023-10-14 10:05 | Discharge Summary ---
Date of Service October 14, 2023 Admission HPI Per Admitting Provider History obtained from patient and records. Medical history significant for CVA, hypertension, hyperlipidemia, past history of PE status post anticoagulation, migraine, anxiety/mood disorder, GERD, IBS. Last confinement 2017 for sepsis secondary to aspiration pneumonia. 1 week history of dry cough symptoms associated with voice change. Patient denies aspiration. No fever, no chills. Possible sick contacts during recent weight/ for her . Worsening shortness of breath with transient chest heaviness. Denies abdominal or flank pain/black/bloody stools. Gross hematuria 2 episodes last month, none currently. Patient evaluated by local urologist outpatient. Cystoscopy to be scheduled as per patient. Lowest O2 sats of 80s documented at the ER. Ceftriaxone administered at the ER. Patient feeling much better after neb treatment at the ER. 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 failure with hypoxia Discharge Exam GENERAL: WD/WN F in NAD HEENT: NC/AT in NAD NECK : Supple CHEST : Decreased breath sounds HEART : RRR, no obvious murmurs ABDOMEN: Some distention, nontender EXTREMITIES : No LE swelling/tenderness NEUROLOGIC : awake, alert, no facial asymmetry, speech fluent, no facial asymmetry, answers appropriately, moves extremities SKIN: warm, dry Discharge Data Allergies Allergy/AdvReac Type Severity Reaction Status Date / Time Penicillins Allergy Intermediate ITCHY RASH Verified 10/11/23 02:51 adhesive Allergy Mild REDNESS Verified 10/11/23 02:51 [id number] [id number] OK valproic acid AdvReac Intermediate feels "out Verified 10/11/23 02:51 of it" Consultations 10/11/23 05:49 ED Decision to Admit Stat Ordered Studies 10/11/23 02:18 CT chest diagnostic w con Stat FINDINGS: Lungs: Bilateral upper lobe, right greater than left, patient is opacities are most consistent with atypical infection and/or aspiration. Pleural space: Unremarkable. No pneumothorax. No significant effusion. Heart: Unremarkable. No cardiomegaly. No significant pericardial effusion. No significant coronary artery calcifications. Bones/joints: There are degenerative changes of the spine. No acute fracture. No dislocation. Soft tissues: Unremarkable. Vasculature: Mild atherosclerosis. No thoracic aortic aneurysm. Lymph nodes: Unremarkable. No enlarged lymph nodes. IMPRESSION: Bilateral upper lobe, right greater than left, patient is opacities are most consistent with atypical infection and/or aspiration. 10/11/23 07:15 CT Abd and Pelvis [CT abd pelvis wo con] Stat FINDINGS: No pneumatosis, free air or portal venous gas is present. There is no hydronephrosis or hydroureter. Sensitivity for detection of urinary calculi is diminished given excreted contrast from recent contrast-enhanced chest CT. Ho wever, no calculi are identified. No upper tract urothelial lesions are identified although ureters are incompletely opacified. No bladder lesion is identified although bladder is incompletely opacified. Unenhanced images of the liver, spleen, adrenal glands and pancreas are unremarkable. Water attenuation left renal lesions favor cysts. There is no evidence for a bowel obstruction. There is no lymphadenopathy. No fluid collections are present. IMPRESSION: 1. No hydronephrosis or hydroureter. No urothelial lesions identified although ureters and bladder incompletely opacified. 2. Decreased sensitivity for detection of urinary calculi given excreted contrast from recent contrast-enhanced CT. However, no calculi identified. 3. No acute process within the abdomen or pelvis on unenhanced exam. Hospital Course (1) Acute hypoxemic respiratory failure: Secondary to atypical pneumonia No sepsis for now Chest CT - Bilateral upper lobe, right greater than left, patient is opacities are most consistent with atypical infection and/or aspiration. procal negat. Med/tele Supplemental O2 Started Rocephin in ED, added Doxycycline -> will DC on cefuroxime and doxy Nebs RTC Pt currently on RA and cough improved w / tessalon perles and guafenesin w/ codein New onset anemia, episodic painless hematuria from last month, none currently (to be scheduled w/outpt urology) Iron Def Anemia- iron level low, given a dose of IV Venofer. CT abdomen pelvis Re: Hematuria 1. No hydronephrosis or hydroureter. No urothelial lesions identified although ureters and bladder incompletely opacified. 2. Decreased sensitivity for detection of urinary calculi given excreted contrast from recent contrast-enhanced CT. However, no calculi identified. 3. No acute process within the abdomen or pelvis on unenhanced exam. UA negative FOBT negative Follow up w/ outpt Urology Appropriate to hold home antiplatelet Rx for now given anemia and hematuria symptoms - discuss use with PCP anemia workup, transfuse PRBC if hemoglobin less than 8 and or from symptomatic anemia (hx CVA) Hgb has been stable ~11, current 11.8 Hyperglycemia likely prediabetes with hemoglobin A1c of 5.7 from 2017 Current hemoglobin A1c 6.1 % Follow up w/ PCP hx CVA, on antiplatelet Rx hypertension, stable hyperlipidemia, on statin Rx past history of PE status post anticoagulation migraine, stable on regimen anxiety/mood disorder, at baseline GERD, stable on PPI Total Time Total Time Spent Total Time Spent (In Minutes): 40 Discharge Plan Discharge Items Patient Disposition: Home - Self-Care Reason For Visit: RESP FAILURE Discharge Diagnosis: Multifocal pneumonia, Acute resp. failure with hypoxia Activity: Per Instructions section Non-emergency contact: Primary Care Provider Call non-emergency contact if: you have any medication questions and your symptoms worsen Follow-up/Referrals: Beth Wang [Primary Care Provider] - Diet: Heart Healthy Addtl Attending Provider Instructions: Follow up with your primary care physician , the appointment was scheduled for you. Finish antibiotic treatment as prescribed. Use albuterol inhaler as prescribed as needed for shortness of breath. Tessalon Perles and Guaifenesin with codeine were prescribed for you, for severe cough. Discuss aspirin and plavix use with your primary care doctor at your next appointment. Also, make sure to schedule appointment with urology, as discussed. Pending Studies at Discharge: No Stand-Alone Forms: My [employer], Smoking Cessation Medications and DC Order Prescriptions: New benzonatate 100 mg Capsule 100 mg PO TID PRN (Reason: cough) Qty: 20 0RF codeine-guaifenesin [Guaifenesin AC] 10-100 mg/5 mL Liquid 5 ml PO BID PRN (Reason: cough) Qty: 118 0RF doxycycline hyclate 100 mg Capsule 100 mg PO Q12H 4 Days Qty: 8 0RF cefuroxime axetil 500 mg tablet 500 mg PO BID 7 Days Qty: 14 0RF albuterol sulfate 90 mcg/actuation HFA aerosol inhaler 1 inh inhalation Q6H PRN (Reason: shortness of breath or wheezing) Qty: 6.7 0RF Continued aspirin 81 mg tablet,delayed release (DR/EC) 81 mg PO Q OTHER DAY atorvastatin 40 mg tablet 40 mg PO QPM Qty: 30 clopidogrel 75 mg tablet 75 mg PO QPM diazepam 10 mg tablet 10 mg PO .Q4-6HR MDD 2 TABS/24 HOURS PRN (Reason: HEADACHES) Patient Comments: 10 mg PO Daily at 8 PM ; hydrocodone-acetaminophen 5-325 mg tablet 1 tab PO Q6 PRN (Reason: Severe Pain (Scale Score 7-10)) tizanidine 2 mg capsule 4 mg PO HS amitriptyline 10 mg tablet 30 mg PO HS Rx Instructions: may increase to 4 tablets if needed Aimovig Autoinjector 70 mg/mL auto-injector 70 mg subcut MONTHLY losartan 100 mg Tablet 100 mg PO QAM dexlansoprazole [Dexilant] 30 mg Capsule,Biphase Delayed Releas 30 mg PO DAILYBB duloxetine 40 mg Capsule, Delayed Rel Sprinkle 40 mg PO QAM ropinirole 0.5 mg tablet 1.5 mg PO UD Rx Instructions: take 3 tablets at 5 PM & BEDTIME trazodone 50 mg tablet 50 mg PO QPM metoprolol succinate 50 mg tablet extended release 24 hr 50 mg PO AMHS amlodipine 5 mg tablet 5 mg PO QAM multivitamin Tablet 1 tab PO DAILY cyanocobalamin (vitamin B-12) [Vitamin B-12] 1,000 mcg Tablet 1,000 mcg PO Q OTHER DAY Reyvow 50 mg tablet 50 mg PO ONCE MDD 1 tablet PRN (Reason: onset of migraine) magnesium oxide 400 mg magnesium Tablet 400 mg PO Q OTHER DAY diphenhydramine HCl [Restfully Sleep] 25 mg Tablet 25 mg PO HS PRN (Reason: Sleep) Discharge Orders: Discharge Order (Routine); Ordered 10/14/23 Ordered By: Abhishek Rios/Other Patient Handouts: Prediabetes, 5 Steps for Eating Healthier Admission Data Admit Date/Time: 10/11/23 07:18 Attending Provider: Abhishek Connor Admit Provider: Oswaldo Leon Primary Care Provider: Beth Wang Other Providers: Oswaldo Leon; Arianna Cummins
[2023-10-14] MEDS ORDERED: guaiFENesin/CODEINE 100MG/10MG 5ML UDC PO PRN (15:19)
== END 2023-10-14 12:59 | disposition home or self-care (01) | DRG 193 ==
LOC: ED 01:04 → SUATTDRO 07:18 → INTOOBSV 07:18 → 2N 07:18